=== PATIENT | female | born 1940 | race Two or more races ===

== ENCOUNTER 2018-08-31 16:18 | Emergency (ER) | payer MEDICARE, OTHER ==
[~2018-08-31] VITALS: Ht 167.6 cm; Wt 77.1 kg
[2018-08-31 16:20] VITALS: BP 123/57
--- NOTE | 2018-08-31 16:20 | NUR ---
ED Nurse Note: Patient cristofer from [facility] c/o shaking. at time of arrival patient is currently having shoulder tremors that she states have been going on for the past week or so. patient complains of no pain. at time of arrival patient did present with an elevated temperature of 99.7, patient is alert and oriented x4. ambulatory with a steady gait, VSS
[2018-08-31] MEDS ORDERED: LORAZEPAM2 MG/1 M4 ORAL (16:31)
[2018-08-31] MEDS ORDERED: ZOLPIDEM TARTRAT5 MG ORAL (16:32)
[2018-08-31] MEDS ORDERED: AMLODIPINE BESYL5 MG ORAL (16:32)
[2018-08-31] MEDS ORDERED: QUETIAPINE FUM300 MG ORAL (16:32)
[2018-08-31] MEDS ORDERED: REMERON30 M1 ORAL (16:34)
[2018-08-31] MEDS ORDERED: DONEPEZIL HCL5 M2 ORAL (16:34)
[2018-08-31 17:12] LABS: BASOPHILS % (AUTO) 1.3 % (0.0-2.0); EOSINOPHILS % (AUTO) 0.2 % (0.0-3.0); HEMATOCRIT 41.2 % (37.0-47.0); LYMPHOCYTES % (AUTO) 22.6 % (20.0-45.0); MEAN CORPUSCULAR VOLUME 93 FL (80-99); MONOCYTES % (AUTO) 5.5 % (1.0-10.0); NEUTROPHILS % (AUTO) 70.5 % (45.0-75.0); PLATELET COUNT 298 K/UL (150-450); RED BLOOD COUNT 4.45 M/UL (4.20-5.40); RED CELL DISTRIBUTION WIDTH 11.2 % (11.6-14.8); WHITE BLOOD COUNT 8.3 K/UL (4.8-10.8)
[2018-08-31] MEDS ORDERED: LORazepam Inj 2mg/ml 1ml IV ONE (17:15)
[2018-08-31 17:27] LABS: APPEARANCE,URINE CLEAR; BILIRUBIN, URINE NEGATIVE (NEGATIVE); COLOR,URINE PALE YELLOW; GLUCOSE, URINE (UA) NEGATIVE (NEGATIVE); KETONES,URINE NEGATIVE (NEGATIVE); LEUKOCYTE ESTERASE ,URINE 1+ (NEGATIVE); NITRITE,URINE NEGATIVE (NEGATIVE); PH,URINE 6 (4.5-8.0); PROTEIN,URINE NEGATIVE (NEGATIVE); UROBILINOGEN,URINE NORMAL MG/DL (0.0-1.0)
[2018-08-31 17:29] LABS: ANION GAP 10 mmol/L (5-15); BLOOD UREA NITROGEN 4 mg/dL (7-18); CALCIUM 9.1 MG/DL (8.5-10.1); CARBON DIOXIDE 26 MMOL/L (21-32); CHLORIDE 103 MMOL/L (98-107); CREATININE 0.6 MG/DL (0.55-1.30); POTASSIUM 3.5 MMOL/L (3.5-5.1); SODIUM 139 MMOL/L (136-145)
[2018-08-31 17:38] LABS: ALANINE AMINOTRANSFERASE 15 U/L (12-78); ALBUMIN 4.1 G/DL (3.4-5.0); ALBUMIN/GLOBULIN RATIO 1.2 (1.0-2.7); ALKALINE PHOSPHATASE 99 U/L (46-116); ASPARTATE AMINO TRANSFERASE 18 U/L (15-37); BILIRUBIN,TOTAL 0.4 MG/DL (0.2-1.0); CREATINE KINASE 54 U/L (26-308)
--- NOTE | 2018-08-31 18:32 | NUR ---
ED Nurse Note: Patient at no distress at this time
--- NOTE | 2018-08-31 19:12 | Emergency Room Report ---
History of Present Illness General Chief Complaint: General Complaint Source: Patient, Medical Record, EMS Present Illness HPI Patient is brought by EMS. Apparently she has had some shaking episodes today. She states that she feels anxious. She denies other somatic complaints. The patient is on medication for anxiety and schizoaffective disorder. She denies depression or suicidal ideation. She states she has been eating well. She has been sleeping well also. She denies pain. No fevers, chills, sore throat, chest pain, palpitations, nausea, vomiting, diarrhea, dysuria, abdominal pain, shortness of breath, joint pain, rashes, visual changes, headache. History of hypertension. Allergies: Coded Allergies: No Known Allergies (Unverified , 08/31/18) Patient History Past Medical History: see triage record Social History: Denies: smoking Social History Narrative Assisted living Now: No Reviewed Nursing Documentation: PMH: Agreed; PSxH: Agreed Nursing Documentation-PMH Past Medical History: No History, Except For Hx Hypertension: Yes History Of Psychiatric Problem: Yes - Depression, Schizo Review of Systems All Other Systems: negative except mentioned in HPI Physical Exam Vital Signs Date Time Temp Pulse Resp B/P (MAP) Pulse Ox O2 Delivery O2 Flow Rate FiO2 08/31/18 16:14 99.7 100 18 123/57 (79) 95 Room Air Sp02 EP Interpretation: reviewed, normal General Appearance: well appearing, no apparent distress, GCS 15, non-toxic Head: normocephalic, atraumatic Eyes: bilateral eye normal inspection, bilateral eye EOMI, bilateral eye other - Irregular pupils ENT: moist mucus membranes Neck: supple Respiratory: chest non-tender, lungs clear, normal breath sounds Cardiovascular #1: regular rate, rhythm Cardiovascular #2: 2+ radial (R) Gastrointestinal: normal inspection, normal bowel sounds, non tender, no mass, non-distended Musculoskeletal: back normal, gait/station normal, normal range of motion Neurologic: alert, oriented x3, motor strength/tone normal, DTRs symmetric, sensory intact, cerebellar normal, normal gait, speech normal - Halting Psychiatric: no suicidal/homicidal ideation, anxious - But flat affect Skin: no rash Medical Decision Making Diagnostic Impression: Primary Impression: Episode of shaking Additional Impression: Anxiety ER Course Patient presents with shaking episodes. Differential includes rigors, Parkinson 's, essential tremor, anxiety, occult infection amongst others. The patient will be evaluated with EKG, chest x-ray and labs. The patient states she feels anxious at this time. She will be treated with Ativan. EKG sinus rhythm with minimal voltage criteria for LVH. Chest x-ray unremarkable. Labs with normal white count and CMP normal. Urinalysis unremarkable. Patient improved with treatment. Page Dr. Vasquez. Discussed with Dr. Vasquez. Patient stable for outpatient observation and treatment. Laboratory Tests Test 08/31/18 16:45 White Blood Count 8.3 K/UL (4.8-10.8) Red Blood Count 4.45 M/UL (4.20-5.40) Hemoglobin 14.0 G/DL (12.0-16.0) Hematocrit 41.2 % (37.0-47.0) Mean Corpuscular Volume 93 FL (80-99) Mean Corpuscular Hemoglobin 31.5 PG (27.0-31.0) H Mean Corpuscular Hemoglobin Concent 34.1 G/DL (32.0-36.0) Red Cell Distribution Width 11.2 % (11.6-14.8) L Platelet Count 298 K/UL (150-450) Mean Platelet Volume 6.7 FL (6.5-10.1) Neutrophils (%) (Auto) 70.5 % (45.0-75.0) Lymphocytes (%) (Auto) 22.6 % (20.0-45.0) Monocytes (%) (Auto) 5.5 % (1.0-10.0) Eosinophils (%) (Auto) 0.2 % (0.0-3.0) Basophils (%) (Auto) 1.3 % (0.0-2.0) Prothrombin Time 10.4 SEC (9.30-11.50) Prothrombin Time INR 1.0 (0.9-1.1) PTT 29 SEC (23-33) Urine Color Pale yellow Urine Appearance Clear Urine pH 6 (4.5-8.0) Urine Specific [place] 1.005 (1.005-1.035) Urine Protein Negative (NEGATIVE) Urine Glucose (UA) Negative (NEGATIVE) Urine Ketones Negative (NEGATIVE) Urine Blood 1+ (NEGATIVE) H Urine Nitrite Negative (NEGATIVE) Urine Bilirubin Negative (NEGATIVE) Urine Urobilinogen Normal MG/DL (0.0-1.0) Urine Leukocyte Esterase 1+ (NEGATIVE) H Urine RBC 0-2 /HPF (0 - 2) Urine WBC 2-4 /HPF (0 - 2) Urine Squamous Epithelial Cells Moderate /LPF (NONE/OCC) H Urine Bacteria Occasional /HPF (NONE) Sodium Level 139 MMOL/L (136-145) Potassium Level 3.5 MMOL/L (3.5-5.1) Chloride Level 103 MMOL/L (98-107) Carbon Dioxide Level 26 MMOL/L (21-32) Anion Gap 10 mmol/L (5-15) Blood Urea Nitrogen 4 mg/dL (7-18) L Creatinine 0.6 MG/DL (0.55-1.30) Estimate Glomerular Filtration Rate mL/min (>60) Glucose Level 118 MG/DL (74-106) H Lactic Acid Level 1.70 mmol/L (0.4-2.0) Calcium Level 9.1 MG/DL (8.5-10.1) Magnesium Level 2.0 MG/DL (1.8-2.4) Total Bilirubin 0.4 MG/DL (0.2-1.0) Aspartate Amino Transferase (AST) 18 U/L (15-37) Alanine Aminotransferase (ALT) 15 U/L (12-78) Alkaline Phosphatase 99 U/L (46-116) Total Creatine Kinase 54 U/L (26-308) Troponin I 0.002 ng/mL (0.000-0.056) Pro-B-Type Natriuretic Peptide 187 pg/mL (0-125) H Total Protein 7.5 G/DL (6.4-8.2) Albumin 4.1 G/DL (3.4-5.0) Globulin 3.4 g/dL Albumin/Globulin Ratio 1.2 (1.0-2.7) Lipase 130 U/L (73-393) EKG Diagnostic Results Rate: normal Rhythm: NSR ST Segments: no acute changes - Minimal voltage criteria for LVH Rhythm Strip Diag. Results EP Interpretation: yes Rhythm: NSR, no PVC's, no ectopy Chest X-Ray Diagnostic Results Chest X-Ray Diagnostic Results : Chest X-Ray Ordered: Yes # of Views/Limited/Complete: 1 View Indication: Other EP Interpretation: Yes Interpretation: no consolidation, no effusion, no pneumothorax Impression: No acute disease Electronically Signed by: Electronically signed by Wilfrid Arora MD Last Vital Signs Date Time Temp Pulse Resp B/P (MAP) Pulse Ox O2 Delivery O2 Flow Rate FiO2 08/31/18 21:09 98.4 85 18 155/89 95 Room Air Status: improved Disposition: ASSISTED LIVING Condition: Improved Referrals: Shruthi Vasquez MD (PCP) Wilfrid Arora MD Aug 31, 2018 19:12
[2018-08-31 19:35] VITALS: BP 123/57
--- NOTE | 2018-08-31 19:35 | NUR ---
Spoke with Janell at [facility], aware of patients return back home.
[2018-08-31 21:09] VITALS: BP 155/89
--- NOTE | 2018-08-31 21:09 | NUR ---
ER DISCHARGE NOTE: Patient is cleared to be discharged per ERMD, pt is aox4, on room air, with stable vital signs. pt was given dc and prescription instructions, pt was able to verbalize understanding, pt id band and iv site removed without complications. pt is being transferred back to the facility. pt took all belongings and is accompanied by ambulance personnel
--- NOTE | 2018-09-01 11:53 | Diagnostic Imaging Report ---
Indication: Shortness of breath Technique: One view of the chest Comparison: none Findings: Lungs and pleural spaces are clear. The heart size is normal. There is a rim calcified left breast implant noted Impression: No acute process
--- NOTE | 2018-09-01 21:04 | Cardiology Report ---
APPROVED REPORT EKG Measurement Heart [id number] Normal sinus rhythm Minimal voltage criteria for LVH, may be normal variant Borderline ECG
== END 2018-08-31 21:10 | disposition home or self-care (01) ==
LOC: EDBD 16:18 → EMR 18:44
DX: F41.9 Anxiety disorder, unspecified (principal); I10 Essential (primary) hypertension; F32.9 Major depressive disorder, single episode, unspecified; F20.9 Schizophrenia, unspecified
CPT/HCPCS: 36415; 71045; 80053; 81003; 82550; 82962; 83605; 83690; 83735; 83880; 84484; 85025; 85610; 85730; 93005; 96361; 96374; 99284

== ENCOUNTER 2018-09-09 11:19 | Emergency (ER) | payer MEDICARE, OTHER ==
[~2018-09-09] VITALS: Ht 162.6 cm; Wt 63.5 kg
[~2018-09-09 11:19] MED LIST: AMLODIPINE BESYL5 MG ORAL; DONEPEZIL HCL5 M2 ORAL; LORAZEPAM2 MG/1 M4 ORAL; QUETIAPINE FUM300 MG ORAL; REMERON30 M1 ORAL; ZOLPIDEM TARTRAT5 MG ORAL
[2018-09-09 11:30] VITALS: BP 116/64
--- NOTE | 2018-09-09 11:39 | Emergency Room Report ---
History of Present Illness General Chief Complaint: Constipation Source: Patient, EMS Present Illness HPI Patient is a 77-year-old female who was [facility] after increased constipation for the past few days. Patient states that she had not had a bowel movement in the past 3 days. She denies any abdominal pain. She denies any abdominal discomfort or low back pain. Patient a prior history of schizoaffective disorder. She had previous visits for anxiety in the past. Allergies: Coded Allergies: No Known Allergies (Unverified , 08/31/18) Patient History Past Medical History: see triage record Reviewed Nursing Documentation: PMH: Agreed; PSxH: Agreed Nursing Documentation-PMH Hx Hypertension: Yes Review of Systems All Other Systems: negative except mentioned in HPI Physical Exam Vital Signs Date Time Temp Pulse Resp B/P (MAP) Pulse Ox O2 Delivery O2 Flow Rate FiO2 09/09/18 11:11 98.8 80 16 116/64 (81) 94 Room Air General Appearance: well appearing, no apparent distress, GCS 15, non-toxic Head: normocephalic, atraumatic ENT: hearing grossly normal, normal voice Neck: full range of motion, supple Respiratory: lungs clear, no respiratory distress, speaking full sentences Cardiovascular #1: normal inspection, no edema Gastrointestinal: normal inspection, normal bowel sounds, non tender, soft, no mass, no hernia Musculoskeletal: no calf tenderness Neurologic: normal inspection, alert, oriented x3, responsive, manager of selection and assessment III-XII nml as tested, normal gait Psychiatric: normal inspection, mood/affect normal Skin: no rash Medical Decision Making Diagnostic Impression: Primary Impression: Constipation ER Course Patient presented for constipation. Differential diagnosis include is not limited to medication reaction, bowel obstruction, functional bowel disorder among others. Patient has a benign exam and does not appear to require any laboratory testing at this time. patient was noted to have some bowel movement and was given fleets enema. Patient was noted to have improvement in her symptoms after medications. Patient appears to be stable for discharge. She was sent back to her long term after discussion with her physician Dr. Jurado. Last Vital Signs Date Time Temp Pulse Resp B/P (MAP) Pulse Ox O2 Delivery O2 Flow Rate FiO2 09/09/18 11:11 98.8 80 16 116/64 (81) 94 Room Air Status: improved Disposition: HOME, SELF-CARE Condition: Stable Scripts Docusate Sodium* (COLACE*) 100 Mg Capsule 100 MG ORAL TWICE A DAY, #30 CAP Prov: Prudencio Obando MD 09/09/18 Prudencio Obando MD Sep 09, 2018 11:39
[2018-09-09] MEDS ORDERED: Fleet's Enema 133ml RECTAL ONE (11:45)
--- NOTE | 2018-09-09 12:06 | NUR ---
ED Nurse Note: [facility] c/o constipation for 4-5 days, denies taking pain medication, pt able to walk. pt stated she feels weak for the past days, denies vomiting. will continue to monitor.
--- NOTE | 2018-09-09 12:24 | NUR ---
ED Nurse Note: pt had BM x 2, noted small brwn round stool. no blood
[2018-09-09] MEDS ORDERED: COLACE100 MG ORAL (12:51)
[2018-09-09 13:00] VITALS: BP 115/65
[2018-09-09 13:37] VITALS: BP 115/65
--- NOTE | 2018-09-09 13:37 | NUR ---
ED Nurse Note: PT IS GOING BCK TO [facility]IA [facility], REPORT GIVEN TO CHRISTINE RN. PT LEFT THE ED WITH STABLE VS AND WITH ALL BELONGINGS.
--- NOTE | 2018-09-09 14:00 | Diagnostic Imaging Report ---
Indication: Abdominal pain Comparison: None Single view of the abdomen obtained Findings: Bowel gas pattern is nonspecific. No mass, ectopic calcifications, or abnormal gas collections are identified. The bones are unremarkable. Clustered radiopaque structures are projected over the mid pelvis the right hip and below the left ischium. These are probably overlying the patient. Impression: No acute findings
== END 2018-09-09 13:37 | disposition home or self-care (01) ==
LOC: EDBD 11:19 → EMR 11:59
DX: K59.00 Constipation, unspecified (principal); I10 Essential (primary) hypertension
CPT/HCPCS: 74018; 99283

== ENCOUNTER 2018-09-28 09:51 | Emergency (ER) | payer MEDICARE, OTHER ==
[~2018-09-28] VITALS: Ht 162.6 cm; Wt 81.6 kg
[~2018-09-28 09:51] MED LIST changes: +COLACE100 MG ORAL
[2018-09-28] MEDS ORDERED: LORAZEPAM2 MG ORAL (09:58)
[2018-09-28 10:02] VITALS: BP 131/67
[2018-09-28] MEDS ORDERED: QUETIAPINE FUMA25 MG ORAL (10:02)
[2018-09-28] MEDS ORDERED: ZOLPIDEM TARTRAT5 MG ORAL (10:02)
[2018-09-28] MEDS ORDERED: QUETIAPINE FUMA50 MG ORAL (10:02)
[2018-09-28] MEDS ORDERED: AMLODIPINE BESYL5 MG ORAL (10:02)
--- NOTE | 2018-09-28 10:02 | NUR ---
ED Nurse Note: Pt brought in by EMS from [facility] due to anxiety. Per EMS, pt's room mate has turned on the lights while they were sleeping and was anxious. Hx of depression and schizoeffective disorder and was sinus tach en route 110-120. AAO x4, ambulatory with non labored breathing. NSR on diamond picker.
[2018-09-28] MEDS ORDERED: DONEPEZIL HCL5 M2 ORAL (10:04)
[2018-09-28] MEDS ORDERED: MIRTAZAPINE30 MG ORAL (10:04)
--- NOTE | 2018-09-28 10:25 | NUR ---
ED Nurse Note: Called [facility] and spoke to Lillian the area secretary that pt is coming back to their facility. She said there is no RN available at this time to receive report.
[2018-09-28 11:15] VITALS: BP 128/70
--- NOTE | 2018-09-28 11:15 | NUR ---
ER DISCHARGE NOTE: Patient is cleared to be discharged per ERMD, pt is aox4, on room air, with stable vital signs. pt was given instructions, pt was able to verbalize understanding, pt id band removed without complications. pt is able to ambulate with steady gait. pt took all belongings and left with [facility] staff and DC to [facility].
--- NOTE | 2018-09-28 13:20 | Emergency Room Report ---
History of Present Illness General Chief Complaint: Behavioral Complaint Source: Patient, EMS Present Illness HPI Patient was sent in by nursing facility for reports of anxiety Patient here reports that she feels significantly better being here denies any headache denies any chest pain patient reports that she has underlying anxiety And is supposed to be getting medicine however is not Denies any vomiting or diarrhea denies any palpitations at this time denies any focal weakness Review of medical records reveals history of schizophrenia with PRN Ativan orders patient also has had several recent visits to the hospital with Fairly extensive work-up Allergies: Coded Allergies: No Known Allergies (Unverified , 08/31/18) Patient History Past Medical History: see triage record Reviewed Nursing Documentation: PMH: Agreed; PSxH: Agreed Nursing Documentation-PMH Past Medical History: No History, Except For Hx Hypertension: Yes History Of Psychiatric Problem: Yes - depression, schizoaffective disorder, general weakness Review of Systems All Other Systems: negative except mentioned in HPI Physical Exam Vital Signs Date Time Temp Pulse Resp B/P (MAP) Pulse Ox O2 Delivery O2 Flow Rate FiO2 09/28/18 09:52 98.8 93 17 110/63 (79) 94 Room Air Sp02 EP Interpretation: reviewed, normal General Appearance: well appearing, no apparent distress Head: normocephalic, atraumatic Eyes: bilateral eye PERRL, bilateral eye EOMI ENT: hearing grossly normal, normal pharynx, TMs + canals normal, uvula midline Neck: full range of motion, supple, no meningismus, no bony tend Respiratory: lungs clear, normal breath sounds, no rhonchi, no respiratory distress, no retraction, no accessory muscle use Cardiovascular #1: normal peripheral pulses, regular rate, rhythm, no edema, no gallop, no JVD, no murmur Gastrointestinal: normal bowel sounds, non tender, soft, no mass, no organomegaly, non-distended, no guarding, no hernia, no pulsatile mass, no rebound Genitourinary: no CVA tenderness Musculoskeletal: normal inspection Neurologic: oriented x3, responsive, video specialist III-XII nml as tested, motor strength/ tone normal, sensory intact Psychiatric: mood/affect normal Skin: no rash Lymphatic: normal inspection, no adenopathy Medical Decision Making Diagnostic Impression: Primary Impression: palpitations ER Course Patient has benign medical evaluation given the complaint of presentation multiple differentials including but not limited to like slight abnormality, anemia, neurological, infectious pathology entertained Patient has had recent work-up which is benign Evaluation today reveals afebrile findings patient is neurologically intact I did contact the nursing facility and recommended contacting the patient's psychiatrist For possible more urgent consultation Rhythm Strip Diag. Results EP Interpretation: yes Rate: 88 Rhythm: NSR, no PVC's, no ectopy Last Vital Signs Date Time Temp Pulse Resp B/P (MAP) Pulse Ox O2 Delivery O2 Flow Rate FiO2 09/28/18 11:15 98.3 86 18 128/70 98 Room Air Status: improved Disposition: XFER SNF Condition: Improved Referrals: Shruthi Vasquez MD (PCP) Patient Instructions: Palpitations, [id number] Additional Instructions: Patient is provided with the discharge instructions notified to follow up with primary doctor in the next 2-3 days otherwise return to the er with any worsening symptoms. Please also notify the patient's psychiatrist with the requirements to be transported to the hospital on several occasions recently for possible further outpatient consultation Please note that this report is being documented using Garmentory technology. This can lead to erroneous entry secondary to incorrect interpretation by the dictating instrument. Karla Burton DO Sep 28, 2018 13:20
== END 2018-09-28 11:15 ==
LOC: EDUNIT# 09:51 → EDBD 09:51 → EMR 11:07
DX: R00.2 Palpitations (principal); F41.9 Anxiety disorder, unspecified; F32.9 Major depressive disorder, single episode, unspecified; F25.9 Schizoaffective disorder, unspecified; I10 Essential (primary) hypertension
CPT/HCPCS: 99282

== ENCOUNTER 2019-01-01 10:09 | Emergency (ER) | payer MEDICARE, OTHER ==
[~2019-01-01] VITALS: Ht 162.6 cm; Wt 77.1 kg
[~2019-01-01 10:09] MED LIST changes: +LORAZEPAM2 MG ORAL; +MIRTAZAPINE30 MG ORAL; +QUETIAPINE FUMA25 MG ORAL; +QUETIAPINE FUMA50 MG ORAL
[2019-01-01 10:12] VITALS: BP 116/68
--- NOTE | 2019-01-01 10:22 | NUR ---
ED Nurse Note: Patient arrived from [facility] by ambulance. Per EMS, the staff called them because the patient has had burning on urination for 1 week. Patient is AxO x 4, temp 98.4, VSS. Patient states she also has had breast soreness x 1 week.
--- NOTE | 2019-01-01 11:00 | NUR ---
ED Nurse Note: Urine sent to lab.
[2019-01-01 11:13] LABS: APPEARANCE,URINE CLEAR; BILIRUBIN, URINE NEGATIVE (NEGATIVE); COLOR,URINE PALE YELLOW; GLUCOSE, URINE (UA) NEGATIVE (NEGATIVE); KETONES,URINE NEGATIVE (NEGATIVE); LEUKOCYTE ESTERASE ,URINE 2+ (NEGATIVE); NITRITE,URINE NEGATIVE (NEGATIVE); PH,URINE 7 (4.5-8.0); PROTEIN,URINE NEGATIVE (NEGATIVE); UROBILINOGEN,URINE NORMAL MG/DL (0.0-1.0)
[2019-01-01 11:45] VITALS: BP 118/74
--- NOTE | 2019-01-01 12:20 | NUR ---
ED Nurse Note: pt c/o pain on left breast. Dr. Obando notified. exam at the bed side. per dr. Obando, follow with PCP. no redness or swelling noted.
--- NOTE | 2019-01-01 13:05 | NUR ---
ED Nurse Note: Reports given to Kt Garcia at the [facility]
--- NOTE | 2019-01-01 13:10 | NUR ---
ED Nurse Note: Patient getting upset, refusing to leave. Patient is being verbally abusive, trying to hit staff if getting close to her.
[2019-01-01 13:40] VITALS: BP 114/80
[2019-01-01 14:15] VITALS: BP 112/79
--- NOTE | 2019-01-01 14:21 | NUR ---
ED Nurse Note: Patient now cooperating, states she is ready to leave. Ambulance called to come pickup the patient.
[2019-01-01 14:49] VITALS: BP 113/75
--- NOTE | 2019-01-01 19:55 | Emergency Room Report ---
History of Present Illness General Chief Complaint: Female Urogenital Problems Source: Medical Record Present Illness HPI Patient is a 78 year old female sent in for possible urinary tract infection. Patient denies fever. Reports having some pain to left breast. Denies any other current complaints. Patient has history of dementia. Allergies: Coded Allergies: No Known Allergies (Unverified , 08/31/18) Patient History Past Medical History: see triage record Last Menstrual Period: na Reviewed Nursing Documentation: PMH: Agreed; PSxH: Agreed Nursing Documentation-PMH Past Medical History: No History, Except For Hx Hypertension: Yes History Of Psychiatric Problem: Yes - schizo-affective d/o, depression Review of Systems All Other Systems: negative except mentioned in HPI Physical Exam Vital Signs Date Time Temp Pulse Resp B/P (MAP) Pulse Ox O2 Delivery O2 Flow Rate FiO2 01/01/19 10:09 98.2 92 20 112/62 (79) 98 Nasal Cannula General Appearance: well appearing, no apparent distress, alert, Chronically Ill Head: normocephalic, atraumatic ENT: hearing grossly normal, normal voice Neck: full range of motion, supple Respiratory: no respiratory distress, speaking full sentences Gastrointestinal: normal inspection, non tender, soft Genitourinary: no CVA tenderness Musculoskeletal: normal inspection, gait/station normal, no calf tenderness Neurologic: alert, motor strength/tone normal, motorcycle racer III-XII nml as tested, normal gait Psychiatric: mood/affect normal Skin: no rash Medical Decision Making Diagnostic Impression: Primary Impression: Pain, abdominal, nonspecific Additional Impression: Breast pain, left Laboratory Tests Test 01/01/19 11:00 Urine Color Pale yellow Urine Appearance Clear Urine pH 7 (4.5-8.0) Urine Specific [place] 1.010 (1.005-1.035) Urine Protein Negative (NEGATIVE) Urine Glucose (UA) Negative (NEGATIVE) Urine Ketones Negative (NEGATIVE) Urine Blood Negative (NEGATIVE) Urine Nitrite Negative (NEGATIVE) Urine Bilirubin Negative (NEGATIVE) Urine Urobilinogen Normal MG/DL (0.0-1.0) Urine Leukocyte Esterase 2+ (NEGATIVE) H Urine RBC 0 /HPF (0 - 2) Urine WBC 2-4 /HPF (0 - 2) Urine Squamous Epithelial Cells Occasional /LPF Urine Bacteria Few /HPF (NONE) Last Vital Signs Date Time Temp Pulse Resp B/P (MAP) Pulse Ox O2 Delivery O2 Flow Rate FiO2 01/01/19 14:49 98.3 82 17 113/75 100 Nasal Cannula Status: improved Disposition: XFER SNF Condition: Stable Patient Instructions: Medical Screening Exam Additional Instructions: Follow up with Dr. Vasquez for further workup of breast pain. Return if worse. Prudencio Obando MD Jan 01, 2019 19:55
== END 2019-01-01 14:49 | disposition home or self-care (01) ==
LOC: EDBD 10:09 → EMR 10:35
DX: R10.9 Unspecified abdominal pain (principal); N64.4 Mastodynia; I10 Essential (primary) hypertension; F25.9 Schizoaffective disorder, unspecified; F32.9 Major depressive disorder, single episode, unspecified
CPT/HCPCS: 81003; 99282

== ENCOUNTER 2019-06-13 11:09 | Inpatient (IN) | payer MEDICARE, OTHER ==
[2019-06-13] VITALS (7 sets, daily range): BP systolic 90–139; BP diastolic 55–85
[~2019-06-13] VITALS: Ht 167.6 cm; Wt 87.8 kg
[2019-06-13 12:14] LABS: ANION GAP 8 mmol/L (5-15); BLOOD UREA NITROGEN 33 mg/dL (7-18); CALCIUM 8.2 MG/DL (8.5-10.1); CARBON DIOXIDE 29 MMOL/L (21-32); CHLORIDE 100 MMOL/L (98-107); CREATININE 1.1 MG/DL (0.55-1.30); POTASSIUM 3.2 MMOL/L (3.5-5.1); SODIUM 137 MMOL/L (136-145)
[2019-06-13 12:17] LABS: BASOPHILS % (AUTO) 0.6 % (0.0-2.0); HEMOGLOBIN 13.4 G/DL (12.0-16.0); LYMPHOCYTES % (AUTO) 17.4 % (20.0-45.0); MEAN CORPUSCULAR VOLUME 90 FL (80-99); MONOCYTES % (AUTO) 8.5 % (1.0-10.0); NEUTROPHILS % (AUTO) 73.5 % (45.0-75.0); PLATELET COUNT 255 K/UL (150-450); RED BLOOD COUNT 4.23 M/UL (4.20-5.40); RED CELL DISTRIBUTION WIDTH 11.4 % (11.6-14.8)
--- NOTE | 2019-06-13 12:17 | NUR ---
ED Nurse Note: Patient was BIB [id number] from [facility] due to gen weakness and dizziness, also patient c/o bilateral rash on upper and lower extremities. Patient presented calm, and cooperative, AAO x4, VSS at this time, skin is warm to touch, pt was placed in a gown, connected to the monitor.
--- NOTE | 2019-06-13 12:23 | Diagnostic Imaging Report ---
EXAM: XR Chest, 1 View CLINICAL HISTORY: WEAK TECHNIQUE: Frontal view of the chest. COMPARISON: Chest x-ray 08/31/18 FINDINGS: Lungs: Tracheobronchial calcinosis. Lungs clear. Vascularity within normal limits. Pleural space: Unremarkable. No pneumothorax. Heart: Unremarkable. No cardiomegaly. Mediastinum: Unremarkable. Bones/joints: Unremarkable. Soft tissues: Rim calcified left breast implant. IMPRESSION: No acute findings in the chest.
[2019-06-13 12:25] LABS: ALANINE AMINOTRANSFERASE 95 U/L (12-78); ALBUMIN 3.2 G/DL (3.4-5.0); ALBUMIN/GLOBULIN RATIO 0.8 (1.0-2.7); ALKALINE PHOSPHATASE 80 U/L (46-116); ASPARTATE AMINO TRANSFERASE 191 U/L (15-37); BILIRUBIN,TOTAL 0.4 MG/DL (0.2-1.0)
[2019-06-13] MEDS ORDERED: Piperacillin/Tazobactam 3.375 GM in NS 110 ML IVPB ONE (12:45)
--- NOTE | 2019-06-13 13:10 | NUR ---
ED Nurse Note: Covid, lactic reflux, and urine sent to lab.
[2019-06-13 13:50] LABS: APPEARANCE,URINE SLIGHTLY CLOUDY; BILIRUBIN, URINE NEGATIVE (NEGATIVE); GLUCOSE, URINE (UA) NEGATIVE (NEGATIVE); KETONES,URINE NEGATIVE (NEGATIVE); LEUKOCYTE ESTERASE ,URINE 3+ (NEGATIVE); NITRITE,URINE NEGATIVE (NEGATIVE); PH,URINE 6 (4.5-8.0); PROTEIN,URINE 2+ (NEGATIVE); UROBILINOGEN,URINE NORMAL MG/DL (0.0-1.0)
--- NOTE | 2019-06-13 13:56 | Emergency Room Report ---
History of Present Illness General Chief Complaint: Generalized Weakness Source: Patient Present Illness HPI 78-year-old female presents for evaluation. Brought in by EMS from assisted living. Complaining of bowel weakness for the last day. Also states there is a "rash" to her legs. Patient denies pain. Denies fevers or chills. Denies cough. No other aggravating relieving factors. Denies any other associated symptoms Allergies: Coded Allergies: No Known Allergies (Unverified , 08/31/18) COVID-19 Screening Contact w/high risk pt: Yes Recent Travel to affected area: No Experienced COVID-19 symptoms?: No Patient History Past Medical History: HTN Past Surgical History: none Pertinent Family History: none Social History: Denies: smoking, alcohol use, drug use Now: No Immunizations: UTD Reviewed Nursing Documentation: PMH: Agreed; PSxH: Agreed Nursing Documentation-PMH Hx Hypertension: Yes Review of Systems All Other Systems: negative except mentioned in HPI Physical Exam Vital Signs Date Time Temp Pulse Resp B/P (MAP) Pulse Ox O2 Delivery O2 Flow Rate FiO2 06/13/19 11:10 98.2 99 18 123/61 (81) 96 Room Air Sp02 EP Interpretation: reviewed, normal General Appearance: no apparent distress, alert, GCS 15, non-toxic Head: normocephalic, atraumatic Eyes: bilateral eye normal inspection, bilateral eye PERRL ENT: hearing grossly normal, normal pharynx, no angioedema, normal voice Neck: full range of motion, supple/symm/no masses Respiratory: chest non-tender, lungs clear, normal breath sounds, speaking full sentences Cardiovascular #1: regular rate, rhythm, no edema Cardiovascular #2: 2+ carotid (R), 2+ carotid (L), 2+ radial (R), 2+ radial (L) , 2+ dorsalis pedis (R), 2+ dorsalis pedis (L) Gastrointestinal: normal bowel sounds, non tender, soft, non-distended, no guarding, no rebound Rectal: deferred Genitourinary: normal inspection, no CVA tenderness Musculoskeletal: back normal, normal range of motion, gait/station normal, non- tender Neurologic: alert, motor strength/tone normal, oriented x3, sensory intact, responsive, speech normal Psychiatric: judgement/insight normal, memory normal, mood/affect normal, no suicidal/homicidal ideation Reflexes: 3+ bicep (R), 3+ bicep (L), 3+ tricep (R), 3+ tricep (L), 3+ knee (R) , 3+ knee (L) Skin: other - erythema/induration to bilateral thighs Lymphatic: no adenopathy Medical Decision Making Diagnostic Impression: Primary Impression: Episode of generalized weakness Additional Impression: Cellulitis of both lower extremities ER Course Hospital Course 78-year-old female presents to ED with rash to lower legs, weakness Differential diagnoses include: Cellulitis, sepsis, abscess, dehydration Clinical course Patient placed on stretcher. After initial history and physical I ordered labs , blood Cx, UA, IVFs, CXR labs reviewed -no leukocytosis, Hb/Hct stable, no electrolyte abnormalities. lactic > 2 CXR - no focal consolidation antibiotics given. given IVFs. given concern for COVID - swab sent Case discussed with Dr Jurado and he agreed to accept the patient to his service for further care and support Diagnosis - episode of generalized weakness, cellulitis of both lower extremities Patient admitted to floor in serious condition Labs Test 06/13/19 11:45 06/13/19 13:10 06/13/19 13:25 White Blood Count 7.0 K/UL (4.8-10.8) Red Blood Count 4.23 M/UL (4.20-5.40) Hemoglobin 13.4 G/DL (12.0-16.0) Hematocrit 38.0 % (37.0-47.0) Mean Corpuscular Volume 90 FL (80-99) Mean Corpuscular Hemoglobin 31.6 PG (27.0-31.0) Mean Corpuscular Hemoglobin Concent 35.2 G/DL (32.0-36.0) Red Cell Distribution Width 11.4 % (11.6-14.8) Platelet Count 255 K/UL (150-450) Mean Platelet Volume 6.5 FL (6.5-10.1) Neutrophils (%) (Auto) 73.5 % (45.0-75.0) Lymphocytes (%) (Auto) 17.4 % (20.0-45.0) Monocytes (%) (Auto) 8.5 % (1.0-10.0) Eosinophils (%) (Auto) 0.0 % (0.0-3.0) Basophils (%) (Auto) 0.6 % (0.0-2.0) Sodium Level 137 MMOL/L (136-145) Potassium Level 3.2 MMOL/L (3.5-5.1) Chloride Level 100 MMOL/L (98-107) Carbon Dioxide Level 29 MMOL/L (21-32) Anion Gap 8 mmol/L (5-15) Blood Urea Nitrogen 33 mg/dL (7-18) Creatinine 1.1 MG/DL (0.55-1.30) Estimat Glomerular Filtration Rate 48.0 mL/min (>60) Glucose Level 88 MG/DL (74-106) Lactic Acid Level 2.70 mmol/L (0.4-2.0) Calcium Level 8.2 MG/DL (8.5-10.1) Total Bilirubin 0.4 MG/DL (0.2-1.0) Aspartate Amino Transf (AST/SGOT) 191 U/L (15-37) Alanine Aminotransferase (ALT/SGPT) 95 U/L (12-78) Alkaline Phosphatase 80 U/L (46-116) Pro-B-Type Natriuretic Peptide 278 pg/mL (0-125) Total Protein 7.4 G/DL (6.4-8.2) Albumin 3.2 G/DL (3.4-5.0) Globulin 4.2 g/dL Albumin/Globulin Ratio 0.8 (1.0-2.7) Chest X-Ray Diagnostic Results Chest X-Ray Diagnostic Results : Chest X-Ray Ordered: Yes # of Views/Limited/Complete: 1 View Indication: Other - cough EP Interpretation: Yes Interpretation: no consolidation, no effusion, no pneumothorax, no acute cardiopulmonary disease Impression: No acute disease Electronically Signed by: Electronically signed by Rogers Moralez MD Last Vital Signs Date Time Temp Pulse Resp B/P (MAP) Pulse Ox O2 Delivery O2 Flow Rate FiO2 06/13/19 12:15 99 18 Room Air 06/13/19 12:15 98.2 123/61 96 Status: improved Disposition: ADMITTED INPATIENT Condition: Serious Referrals: NON PHYSICIAN (PCP) Rogers Moralez MD June 13, 2019 13:56
[2019-06-13 14:15] LABS: COLOR,URINE YELLOW
--- NOTE | 2019-06-13 15:30 | NUR ---
HAND-OFF: Report given to Jocelin GREGORIO.
--- NOTE | 2019-06-13 15:35 | NUR ---
ED Nurse Note: Report received from DARLINE Turner. Pt is awake and alert, oriented x1. Pt is resting in bed. NAD. Safety measures in place. Will cont. to monitor. VSS.
--- NOTE | 2019-06-13 17:00 | NUR ---
ED Nurse Note: Pt laying in bed with eyes open, no acute distress. VSS.
--- NOTE | 2019-06-13 19:15 | NUR ---
ED Nurse Note: Pt repositioned in bed. Pt appears to be mildly anxious, ERMD aware. See vitals flow sheet. Will cont. to monitor., Safety measures in place.
--- NOTE | 2019-06-13 20:00 | NUR ---
ED Nurse Note: Spoke with admitting doctor, Dr. Jurado who stated that Dr. Jj was covering. Dr. Jj contacted as requested by Dr. Jurado and spoke with Dr. Jj who states that he will input admitting orders.
[2019-06-13] MEDS ORDERED: Miralax 17gm pkt ORAL PRN (20:15)
--- NOTE | 2019-06-13 21:00 | NUR ---
ED Nurse Note: Pt linen changed and pt respositioned. Pt is awake and alert, no acute distresss. Pt VSS. IV is patent and intact. Will continue to monitor and carry out orders. Safety measures in place.
[2019-06-13] MEDS: Heparin 5000 units/ml inj SUBQ SCH (21:22)
--- NOTE | 2019-06-13 23:00 | NUR ---
ED Nurse Note: Pt appears to be sleeping at this time, in bed with eyes closed. NAD. Will cont. to monitor.
[2019-06-14] VITALS (8 sets, daily range): BP systolic 96–158; BP diastolic 36–91
--- NOTE | 2019-06-14 02:00 | NUR ---
ED Nurse Note: Pt moved to [place] bed at this time and turned/repositioned. Pt is in no acute distress. Vital signs are stable. IV is patent and intact. IV antibx infusing as ordered. Safety measures in place. Will continue to monitor.
--- NOTE | 2019-06-14 02:05 | NUR ---
ED Nurse Note: Pt linens are dry and clean. Skin is dry/clean/intact.
[2019-06-14] MEDS ORDERED: Vancomycin 1.25gm/NS Premix IVPB ONE (03:00)
[2019-06-14] MEDS ORDERED: Vancomycin 1.25gm vial IVPB ONE (03:13)
--- NOTE | 2019-06-14 03:20 | NUR ---
HAND-OFF: Report given to DARLINE Sanchez.
--- NOTE | 2019-06-14 03:31 | NUR ---
ED Nurse Note: pt received from DARLINE Patrick. pt appears to be resting in bed with eyes closed. she has vancomycin infusing per MD orders. pt has been changed, cleaned and dried, provided with blankets for comfort. pt has stable vital signs. pt has cellulitis on lower extremities. will continue to monitor pt and prepare for admissiont
[2019-06-14] MEDS ORDERED: Vancomycin 1.25 GM in D5W 275 ML IVPB ONE (04:00)
--- NOTE | 2019-06-14 06:09 | NUR ---
ED Nurse Note: pt appears to be resting in bed with eyes closed. she does not appear to be in any distress at this time. breathing is even and non-labored on room air. will continue to monitor pt and prepare for admission
--- NOTE | 2019-06-14 07:05 | NUR ---
ED Nurse Note: Received report from Laura GREGORIO, patient resting in bed, breathing even and unlabored, on the air sampling and monitoring. No s/s of acute distress.
[2019-06-14] MEDS: Heparin 5000 units/ml inj SUBQ SCH ×2 (10:24→21:31)
--- NOTE | 2019-06-14 11:00 | NUR ---
NURSE NOTES: received report from DARLINE dowd,ER. patient will be admitted [address]Shecter vega.
--- NOTE | 2019-06-14 11:05 | NUR ---
ED Nurse Note: REPORT GIVEN TO DARLINE ORTIZ
--- NOTE | 2019-06-14 11:07 | NUR ---
ED Nurse Note: SPOKE WITH PRECY FROM THE LAB AND INFORMED THE NEED OF ASSISTANCE IN DRAWING THE LABS
--- NOTE | 2019-06-14 12:19 | NUR ---
NURSE NOTES: Received patient from ER transferred by hospital bed under the care of Dr. Yo with diagnosis of Weakness and Cellulitis on BLE. Patient is alert and oriented x 3-4, not in any form of cardiac or respiratory distress, skin warm and dry to touch, denies any pain or discomfort upon assessment, IV line gauge 20 on RAC patent and intact. Skin assessment done, ecchymosis noted on bilateral buttock and small excoriation on right buttock. Pt on droplet and contact isolation for PUI COVID, pt was oriented to room and use of call light, bed in low position with breaks engaged. Will continue to monitor. Call light within reach.
[2019-06-14] MEDS: Piperacillin/Tazobactam 3.375 GM in NS 110 ML IVPB SCH (14:00)
[2019-06-14] MEDS: Potassium Chloride 40 MEQ in 1/2 NS 1000ml 1,000 ML IV SCH ×2 (14:58→21:33)
[2019-06-14 15:28] LABS: BASOPHILS % (AUTO) 0.5 % (0.0-2.0); HEMATOCRIT 35.9 % (37.0-47.0); MEAN CORPUSCULAR VOLUME 94 FL (80-99); MONOCYTES % (AUTO) 5.5 % (1.0-10.0); PLATELET COUNT 207 K/UL (150-450); RED BLOOD COUNT 3.81 M/UL (4.20-5.40); RED CELL DISTRIBUTION WIDTH 12.5 % (11.6-14.8); WHITE BLOOD COUNT 5.8 K/UL (4.8-10.8)
[2019-06-14 15:55] LABS: ALANINE AMINOTRANSFERASE 82 U/L (12-78); ALBUMIN 2.5 G/DL (3.4-5.0); ALBUMIN/GLOBULIN RATIO 0.7 (1.0-2.7); ALKALINE PHOSPHATASE 67 U/L (46-116); ANION GAP 8 mmol/L (5-15); ASPARTATE AMINO TRANSFERASE 158 U/L (15-37); BILIRUBIN,TOTAL 0.3 MG/DL (0.2-1.0); BLOOD UREA NITROGEN 10 mg/dL (7-18); CALCIUM 7.6 MG/DL (8.5-10.1); CARBON DIOXIDE 28 MMOL/L (21-32); CHLORIDE 101 MMOL/L (98-107); CREATINE KINASE 3110 U/L (26-308); CREATININE 0.5 MG/DL (0.55-1.30); SODIUM 136 MMOL/L (136-145)
--- NOTE | 2019-06-14 16:01 | NUR ---
NURSE NOTES: Dr. Jj requested patient medication list at assisted living. RN called [facility]. spoke to Merlene. she is going to send a fax of medication list tomorrow morning after 7am.
--- NOTE | 2019-06-14 19:53 | NUR ---
HAND-OFF: Report given to DARLINE Jung.
--- NOTE | 2019-06-14 19:55 | NUR ---
NURSE NOTES: Pt. received from DARLINE Turner. Pt. AAOx3, on room air, breathing even and unlabored, no complaints of pain at this time. IV access right AC 20g, intact and patent; running 1/2NS KCl 40mEq at 100cc/hr. Bed is low and locked, side rails x2 up, bed alarm active, and call light in reach. Will continue to monitor.
[2019-06-15] VITALS: BP 114/80
--- NOTE | 2019-06-15 00:14 | History and Physical Report ---
DATE OF ADMISSION: 06/14/2019 CHIEF COMPLAINT AND REASON FOR HOSPITALIZATION: The patient was admitted with generalized weakness, cellulitis of the legs. HISTORY OF PRESENT ILLNESS: The patient lives in assisted living facility. She is a poor historian. Sent in for generalized weakness, found to have some cellulitis of the legs. There is a history of hypertension, psychiatric problems. ALLERGIES: None known. MEDICATIONS: Include amlodipine 5 mg daily, lorazepam 2 mg p.r.n., Seroquel 100 mg daily and Seroquel 250 at bedtime, zolpidem 5 as needed. HABITS: She is a nondrinker and nonsmoker. PAST SURGICAL HISTORY: Denies. SYSTEM REVIEW: HEAD, EYES, EARS, NOSE, AND THROAT: Vision and hearing is good. ENDOCRINE: No known diabetes or thyroid disease. PULMONARY: No asthma, TB, chronic cough. CARDIAC: No angina or [place]. GASTROINTESTINAL: She had some mild nausea and vomiting, not recurring. GENITOURINARY: No dysuria or hematuria. NEUROLOGIC: No CVA. She complains of generalized weakness. PHYSICAL EXAMINATION: VITAL SIGNS: BMI 27.4. Temperature 99.1, pulse 67, respiratory rate 18, blood pressure 138/67. HEAD, EYES, EARS, NOSE, AND THROAT: Sclerae are nonicteric. Ocular motions intact in all directions. Oral mucosa is moist. NECK: No adenopathy. LUNGS: Clear. HEART: Regular rhythm. No murmur heard. ABDOMEN: Soft. No organomegaly. EXTREMITIES: There is trace to 1+ edema. Erythema and cellulitis of both legs to the . IMPRESSION: 1. Cellulitis of the legs. 2. History of psychiatric disorder. 3. History of hypertension. 4. Generalized weakness. 5. Obesity. PLAN: The patient was placed on empiric antibiotics. We will watch her closely in view of her generalized weakness, look for any other contributing causes. Details orders have been given. Dmitri Jj M.D. DR: Manuel JOB#: [id number] CC:
[2019-06-15 04:00] VITALS: BP 142/52
[2019-06-15] MEDS: Vancomycin 1.25gm/NS Premix IVPB SCH (04:25)
[2019-06-15 06:40] LABS: BASOPHILS % (AUTO) 0.3 % (0.0-2.0); HEMATOCRIT 32.4 % (37.0-47.0); HEMOGLOBIN 11.6 G/DL (12.0-16.0); LYMPHOCYTES % (AUTO) 25.3 % (20.0-45.0); MEAN CORPUSCULAR VOLUME 89 FL (80-99); MONOCYTES % (AUTO) 7.9 % (1.0-10.0); NEUTROPHILS % (AUTO) 66.4 % (45.0-75.0); PLATELET COUNT 188 K/UL (150-450); RED BLOOD COUNT 3.63 M/UL (4.20-5.40); RED CELL DISTRIBUTION WIDTH 11.5 % (11.6-14.8); WHITE BLOOD COUNT 5.5 K/UL (4.8-10.8)
--- NOTE | 2019-06-15 06:53 | NUR ---
NURSE NOTES: Sandra from [facility] called to notify pt.'s blood culture presents with gram variable bacteria. Sandra will notify Dr. Jj regarding results.
[2019-06-15 07:11] LABS: ALANINE AMINOTRANSFERASE 77 U/L (12-78); ALBUMIN 2.2 G/DL (3.4-5.0); ALBUMIN/GLOBULIN RATIO 0.6 (1.0-2.7); ALKALINE PHOSPHATASE 63 U/L (46-116); ANION GAP 8 mmol/L (5-15); ASPARTATE AMINO TRANSFERASE 120 U/L (15-37); BILIRUBIN,TOTAL 0.3 MG/DL (0.2-1.0); BLOOD UREA NITROGEN 8 mg/dL (7-18); CALCIUM 7.1 MG/DL (8.5-10.1); CARBON DIOXIDE 26 MMOL/L (21-32); CHLORIDE 101 MMOL/L (98-107); CREATINE KINASE 1774 U/L (26-308); CREATININE 0.6 MG/DL (0.55-1.30); POTASSIUM 3.3 MMOL/L (3.5-5.1); SODIUM 134 MMOL/L (136-145)
[2019-06-15 08:00] VITALS: BP 122/68
--- NOTE | 2019-06-15 08:00 | NUR ---
NURSE NOTES: Patient awake and alert but confused,reorient patient ,respirations unlabored.IV fluids infusing as ordered.Breakfast at bedside will assist patient.Bed alarm on,call light within reach.
--- NOTE | 2019-06-15 08:03 | NUR ---
HAND-OFF: Report given to DARLINE Javier.
[2019-06-15] MEDS: Heparin 5000 units/ml inj SUBQ SCH ×2 (09:35→20:17)
[2019-06-15] MEDS: Potassium Chloride 40 MEQ in 1/2 NS 1000ml 1,000 ML IV SCH ×2 (09:45→18:29)
[2019-06-15 12:00] VITALS: BP 132/80
--- NOTE | 2019-06-15 12:40 | NUR ---
CASE MANAGEMENT:INITIAL REVIEW 78 YR OLD FEMALE BIBA FROM [facility] CC;GENERALIZED WEAKNESS SI;WEAKNESS. BLE CELLULITIS. 98.2 99 22 135/85 96% ON RA K+ 3.2 BUN 33 CA 8.2 AST 191 ALT 95 BNP 278 ALB 3.2 UA+ PROTEIN, BLOOD, LEUKOCYTE, RBC, WBC. SQUAMOUS, BACTERIA UA CX ~ + PROTEUS MIRABILIS NARES - NO MRSA BLOOD CX - NO GROWTH COVID -19 SWAB ~ RESULT PENDING IS;IVF NS BOLUS ZOSYN IV ONCE KCL IV ONE ADMITTED TO MED SURG @ 2013 ON 05/14/19 MED SURG STATUS DCP;FROM [facility]
[2019-06-15 16:00] VITALS: BP 136/76
--- NOTE | 2019-06-15 16:16 | Diagnostic Imaging Report ---
Indication: Abnormal liver function tests Technique: Granado-scale and duplex images of the upper abdomen were obtained Comparison: none Findings: Gallbladder is unremarkable, without stones, wall thickening, nor pericholecystic fluid. Sonographic Potts's sign is negative. Common bile duct measures 2 mm in diameter. No intrahepatic biliary ductal dilatation. Liver demonstrates increased and coarsened echogenicity, no focal abnormality. Portal vein and hepatic veins are patent. Pancreas is unremarkable. Spleen is unremarkable. Left kidney measures 12.6 cm in length. Right kidney measures 12.7 cm length. Both kidneys demonstrate normal echogenicity. There is no hydronephrosis. No focal abnormality . Non-aneurysmal abdominal aorta . Trace free fluid is seen adjacent to the right hepatic lobe Impression: Liver demonstrates increased echogenicity, compatible with hepatocellular disease, most likely fatty change but other etiologies possible. Negative for gallstones or dilated bile ducts Trace free intraperitoneal fluid
--- NOTE | 2019-06-15 16:22 | General Progress Note ---
Assessment/Plan Problem List: (1) Hypokalemia ICD Codes: E87.6 - Hypokalemia SNOMED: 19931015 (2) Hypertension, benign ICD Codes: I10 - Essential (primary) hypertension SNOMED: 80780069 (3) Urinary tract infection due to Proteus ICD Codes: N39.0 - Urinary tract infection, site not specified; B96.4 - Proteus (mirabilis) (morganii) as the cause of diseases classified elsewhere SNOMED: 612037137 (4) Episode of generalized weakness ICD Codes: R53.1 - Weakness SNOMED: 42768188 (5) Cellulitis of both lower extremities ICD Codes: L03.115 - Cellulitis of right lower limb; L03.116 - Cellulitis of left lower limb SNOMED: 264678033 (6) Bacteremia ICD Codes: R78.81 - Bacteremia SNOMED: 5858275 Assessment/Plan: continue empiric atb culture pending Subjective Constitutional: Reports: weakness HEENT: Reports: no symptoms Cardiovascular: Reports: no symptoms Respiratory: Reports: no symptoms Gastrointestinal/Abdominal: Reports: no symptoms Genitourinary: Reports: no symptoms Endocrine: Reports: no symptoms Allergies: Coded Allergies: No Known Allergies (Unverified , 08/31/18) Objective Last 24 Hour Vital Signs Date Time Temp Pulse Resp B/P (MAP) Pulse Ox O2 Delivery O2 Flow Rate FiO2 06/15/19 12:00 97.8 83 18 132/80 (97) 97 06/15/19 09:00 Room Air 06/15/19 08:00 97.9 77 18 122/68 (86) 97 06/15/19 04:00 98.2 89 20 142/52 (82) 92 06/15/19 00:00 97.3 87 18 114/80 (91) 92 06/14/19 21:00 Room Air 06/14/19 20:00 97.7 91 18 130/73 (92) 94 Intake and Output 06/14/19 06/15/19 19:00 07:00 Intake Total 740 ml 1000 ml Balance 740 ml 1000 ml Intake Oral 240 ml 300 ml IV Total 500 ml 700 ml # Voids 1 1 Laboratory Tests 06/15/19 05:35: White Blood Count 5.5, Red Blood Count 3.63L, Hemoglobin 11.6L, Hematocrit 32.4L , Mean Corpuscular Volume 89, Mean Corpuscular Hemoglobin 31.9H, Mean Corpuscular Hemoglobin Concent 35.8, Red Cell Distribution Width 11.5L, Platelet Count 188, Mean Platelet Volume 6.0L, Neutrophils (%) (Auto) 66.4, Lymphocytes (%) (Auto) 25.3, Monocytes (%) (Auto) 7.9, Eosinophils (%) (Auto) 0.0, Basophils (%) (Auto) 0.3, Sodium Level 134L, Potassium Level 3.3L, Chloride Level 101, Carbon Dioxide Level 26, Anion Gap 8, Blood Urea Nitrogen 8 , Creatinine 0.6, Estimat Glomerular Filtration Rate > 60, Glucose Level 94, Calcium Level 7.1L, Total Bilirubin 0.3, Aspartate Amino Transf (AST/SGOT) 120H , Alanine Aminotransferase (ALT/SGPT) 77, Alkaline Phosphatase 63, Total Creatine Kinase 1774H, Total Protein 5.7L, Albumin 2.2L, Globulin 3.5, Albumin/ Globulin Ratio 0.6L Height (Feet): 5 Height (Inches): 6.00 Weight (Pounds): 170 General Appearance: no apparent distress, alert EENT: normal ENT inspection Neck: normal alignment Cardiovascular: regular rhythm Respiratory/Chest: lungs clear Abdomen: no organomegaly Edema: mild edema 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
--- NOTE | 2019-06-15 17:48 | NUR ---
NURSE NOTES: WOUND CARE NOTES:Pt presented on admission with two elongated and crescent shaped DTPI which inviolves both R and L lower gluteal cheeks and both upper thighs. DTPI R gluteus is purple with maroon borders, small opening that is vivian noted at Lower/outer R buttocks. Wound is (L)3cm x (W)19.5cm. Wound curves from outer lower gluteal cheek along upper thigh, laterally to medially. DTPI L lower gluteal cheek is purple, indurated with maroon borders, small opening noted to to lower /outer L gluteal john, Base of wound is vivian with small amt sanguineous exudate. Marginal erythema noted periwound. Wound also curves from L gluteal cheek to upper L thigh laterally to medially .(L)3cm x (W)21cm. [place] shaped non-blanching erythema without induration noted to upper/outer R buttocks and upper /outer L buttocks. Both heels are boggy with non-blanching erythema. Tx.Plan: Apply Moisture Barrier Paste to wounds R and L buttocks and posterior /upper R and L thighs. Cover wounds with Optifoam drsgs. Change every 3 days and prn. Apply Cavilon Skin Barrier to both heels. Cover each heel with Optifoam drsg. Change every 7 days and prn Reposition at least every 2hours or as tolerated. Off-load heels with Pillow. APM/CHAYA MATTRESS overlay
--- NOTE | 2019-06-15 19:33 | NUR ---
HAND-OFF: Report given to Eirch GREGORIO. Addendum: 06/15/19 at 1938 by TIM MENDEZ RN RN RN Aware of fall risk.
--- NOTE | 2019-06-15 19:38 | NUR ---
NURSE NOTES: Lab called and report that patient is Covid-19 positive.Will endorse to DARLINE Jung and DARLINE Jung will call Doctor.
--- NOTE | 2019-06-15 19:40 | NUR ---
NURSE NOTES: Pt. received from DARLINE Javier. Pt. AAOx2, on room air, breathing is even and unlabored, no complaints of pain. No IV access at this time, removed per patient; will attempt reinsertion. Bed is low and locked, side rails x3, bed alarm active, and call light is in reach. Will continue to monitor.
--- NOTE | 2019-06-15 19:54 | NUR ---
NURSE NOTES: Pt. reported as COVID POSITIVE, message left for Dr. Jj to notify. Charge nurse is aware. Awaiting return call for orders. Will continue to monitor.
[2019-06-15 20:00] VITALS: BP 154/86
--- NOTE | 2019-06-15 23:15 | NUR ---
NURSE NOTES: Attempted to insert IV access, pt. refused. Discussed and educated the patient needs to have IV access to receive IV antibiotics for current infection, pt did not acknowledge and stated "No, leave me alone." Endorsed by day shift nurse that pt. removed x2 IV access 06/14. Charge nurse aware, will continue to monitor.
[2019-06-16] VITALS: BP 111/68
[2019-06-16 04:00] VITALS: BP 155/68
[2019-06-16] MEDS: Potassium Chloride 40 MEQ in 1/2 NS 1000ml 1,000 ML IV SCH ×2 (04:10→15:00)
[2019-06-16] MEDS: Vancomycin 1.25gm/NS Premix IVPB SCH (04:11)
[2019-06-16 05:07] LABS: BASOPHILS % (AUTO) 0.7 % (0.0-2.0); EOSINOPHILS % (AUTO) 0.1 % (0.0-3.0); HEMATOCRIT 37.7 % (37.0-47.0); HEMOGLOBIN 13.5 G/DL (12.0-16.0); LYMPHOCYTES % (AUTO) 28.5 % (20.0-45.0); MEAN CORPUSCULAR VOLUME 89 FL (80-99); NEUTROPHILS % (AUTO) 61.6 % (45.0-75.0); PLATELET COUNT 212 K/UL (150-450); RED BLOOD COUNT 4.25 M/UL (4.20-5.40); RED CELL DISTRIBUTION WIDTH 11.4 % (11.6-14.8); WHITE BLOOD COUNT 5.3 K/UL (4.8-10.8)
[2019-06-16 05:27] LABS: % IRON SATURATION 12 % (15-50); IRON 19 ug/dL (50-175); TOTAL IRON BINDING CAPACITY 156 ug/dL (250-450)
[2019-06-16 05:41] LABS: ANION GAP 8 mmol/L (5-15); BLOOD UREA NITROGEN 8 mg/dL (7-18); CALCIUM 7.9 MG/DL (8.5-10.1); CARBON DIOXIDE 28 MMOL/L (21-32); CHLORIDE 100 MMOL/L (98-107); CREATININE 0.6 MG/DL (0.55-1.30); FERRITIN 644 NG/ML (8-388); POTASSIUM 4.3 MMOL/L (3.5-5.1); SODIUM 136 MMOL/L (136-145)
--- NOTE | 2019-06-16 07:45 | NUR ---
HAND-OFF: Report given to DARLINE Veras.
[2019-06-16 08:00] VITALS: BP 143/75
--- NOTE | 2019-06-16 08:00 | NUR ---
NURSE NOTES: Received patient lying in bed resting comfortably. Assessed patient from head to toe. Patient is AAO x [address], able to make some needs known, able to self-reposition but is on bedrest, with no c/o pain at this time. IVF running at 100 ml/hr via R hand peripheral IV. No s/s of infiltration. VS WNL except low-grade fever noted with temperature at 100.1 degrees fahrenheit. Patient is on RA with no respiratory distress noted at this time. Incontinent x 2 with LBM on 06/15/19. Patient has contracted BUE with weakness to BLE and c/o of discomfort when moved. Patient will be evaluated closely for possible worsening of s/s of infection.
[2019-06-16] MEDS: Heparin 5000 units/ml inj SUBQ SCH ×2 (09:32→20:23)
[2019-06-16 12:00] VITALS: BP 134/68
--- NOTE | 2019-06-16 12:01 | NUR ---
NURSE NOTES: Patient noted with hands tremors and Rn was told from behavior clinician that patient had episodes. RN informed Dr. Jj with no new order. Dr. Jj is aware that patient is on seroquel with no new order.
--- NOTE | 2019-06-16 12:01 | General Progress Note ---
Assessment/Plan Problem List: (1) Hypokalemia ICD Codes: E87.6 - Hypokalemia SNOMED: 04186973 (2) Hypertension, benign ICD Codes: I10 - Essential (primary) hypertension SNOMED: 34280879 (3) Urinary tract infection due to Proteus ICD Codes: N39.0 - Urinary tract infection, site not specified; B96.4 - Proteus (mirabilis) (morganii) as the cause of diseases classified elsewhere SNOMED: 309932167 (4) Episode of generalized weakness ICD Codes: R53.1 - Weakness SNOMED: 57844205 (5) Cellulitis of both lower extremities ICD Codes: L03.115 - Cellulitis of right lower limb; L03.116 - Cellulitis of left lower limb SNOMED: 816855095 (6) Bacteremia ICD Codes: R78.81 - Bacteremia SNOMED: 7679526 Assessment/Plan: proteus uti, bc bacteroides and G+ cocci, not toxic, wound care, vanco, zosyn Subjective Constitutional: Reports: weakness HEENT: Reports: no symptoms Cardiovascular: Reports: no symptoms Respiratory: Reports: no symptoms Gastrointestinal/Abdominal: Reports: poor appetite Genitourinary: Reports: incontinence Neurologic/Psychiatric: Reports: no symptoms Endocrine: Reports: no symptoms Hematologic/Lymphatic: Reports: no symptoms Allergies: Coded Allergies: No Known Allergies (Unverified , 08/31/18) Objective Last 24 Hour Vital Signs Date Time Temp Pulse Resp B/P (MAP) Pulse Ox O2 Delivery O2 Flow Rate FiO2 06/16/19 09:00 Room Air 06/16/19 08:00 100.1 92 19 143/75 (97) 93 06/16/19 04:00 98.6 88 20 155/68 (97) 96 06/16/19 00:00 99.3 105 19 111/68 (82) 95 06/15/19 21:00 Room Air 06/15/19 20:00 100.0 93 19 154/86 (108) 96 06/15/19 16:00 98.1 85 18 136/76 (96) 97 06/15/19 12:00 97.8 83 18 132/80 (97) 97 Intake and Output 06/15/19 06/16/19 19:00 07:00 Intake Total 1760 ml 200 ml Balance 1760 ml 200 ml Intake Oral 860 ml IV Total 900 ml 200 ml # Voids 6 2 # Bowel Movements 1 Laboratory Tests 06/16/19 04:00: White Blood Count 5.3, Red Blood Count 4.25, Hemoglobin 13.5, Hematocrit 37.7, Mean Corpuscular Volume 89, Mean Corpuscular Hemoglobin 31.7H, Mean Corpuscular Hemoglobin Concent 35.7, Red Cell Distribution Width 11.4L, Platelet Count 212, Mean Platelet Volume 6.2L, Neutrophils (%) (Auto) 61.6, Lymphocytes (%) (Auto) 28.5, Monocytes (%) (Auto) 9.0, Eosinophils (%) (Auto) 0.1, Basophils (%) (Auto ) 0.7, Sodium Level 136, Potassium Level 4.3, Chloride Level 100, Carbon Dioxide Level 28, Anion Gap 8, Blood Urea Nitrogen 8, Creatinine 0.6, Estimat Glomerular Filtration Rate > 60, Glucose Level 81, Calcium Level 7.9L, Iron Level 19L, Total Iron Binding Capacity 156L, Percent Iron Saturation 12L, Unsaturated Iron Binding 137, Ferritin 644H Height (Feet): 5 Height (Inches): 6.00 Weight (Pounds): 170 General Appearance: no apparent distress, alert EENT: normal ENT inspection Neck: normal alignment Cardiovascular: regular rhythm Respiratory/Chest: lungs clear Abdomen: non tender Edema: mild edema 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
--- NOTE | 2019-06-16 12:37 | Infectious Diseases Prog Note ---
Assessment/Plan Assessment/Plan Full consult to follow: A) 1) proteus uti, leg cellulitis 2) covid-19 virus infection 3) possible bacteroides/gram+ bacteremia vs contaminant 4) fevers 5) pmh noted P) 1) vancomycin and zosyn 2) check cultures, labs and f/u chest x-ray 3) no indication for hydroxychloroquine at this time - sats stable and chest x- ray negative 4) d/w Dr. Jj and RN 5) thank you Subjective Allergies: Coded Allergies: No Known Allergies (Unverified , 08/31/18) Objective Vital Signs Last 24 Hour Vital Signs Date Time Temp Pulse Resp B/P (MAP) Pulse Ox O2 Delivery O2 Flow Rate FiO2 06/16/19 09:00 Room Air 06/16/19 08:00 100.1 92 19 143/75 (97) 93 06/16/19 04:00 98.6 88 20 155/68 (97) 96 06/16/19 00:00 99.3 105 19 111/68 (82) 95 06/15/19 21:00 Room Air 06/15/19 20:00 100.0 93 19 154/86 (108) 96 06/15/19 16:00 98.1 85 18 136/76 (96) 97 Height (Feet): 5 Height (Inches): 6.00 Weight (Pounds): 170 Microbiology Date/Time Source Procedure Growth Status 06/13/19 21:04 Nasal Nares MRSA Culture - Final NO METHICILLIN RESISTANT STAPH AUREUS... Complete 06/13/19 13:10 Nasopharynx Coronavirus COVID-19 PCR ([facility]OY) - Final Complete 06/13/19 13:25 Urine,Clean Catch Urine Culture - Final Proteus Mirabilis Complete 06/13/19 21:04 Rectum VRE Culture - Final NO VANCOMYCIN RESISTANT ENTEROCOCCUS ... Complete 06/13/19 21:04 Rectum - Final NO CARBAPENEM-RESISTANT ENTEROBACTERI... Complete Laboratory Tests Test 06/16/19 04:00 White Blood Count 5.3 K/UL (4.8-10.8) Red Blood Count 4.25 M/UL (4.20-5.40) Hemoglobin 13.5 G/DL (12.0-16.0) Hematocrit 37.7 % (37.0-47.0) Mean Corpuscular Volume 89 FL (80-99) Mean Corpuscular Hemoglobin 31.7 PG (27.0-31.0) H Mean Corpuscular Hemoglobin Concent 35.7 G/DL (32.0-36.0) Red Cell Distribution Width 11.4 % (11.6-14.8) L Platelet Count 212 K/UL (150-450) Mean Platelet Volume 6.2 FL (6.5-10.1) L Neutrophils (%) (Auto) 61.6 % (45.0-75.0) Lymphocytes (%) (Auto) 28.5 % (20.0-45.0) Monocytes (%) (Auto) 9.0 % (1.0-10.0) Eosinophils (%) (Auto) 0.1 % (0.0-3.0) Basophils (%) (Auto) 0.7 % (0.0-2.0) Sodium Level 136 MMOL/L (136-145) Potassium Level 4.3 MMOL/L (3.5-5.1) Chloride Level 100 MMOL/L (98-107) Carbon Dioxide Level 28 MMOL/L (21-32) Anion Gap 8 mmol/L (5-15) Blood Urea Nitrogen 8 mg/dL (7-18) Creatinine 0.6 MG/DL (0.55-1.30) Estimat Glomerular Filtration Rate > 60 mL/min (>60) Glucose Level 81 MG/DL (74-106) Calcium Level 7.9 MG/DL (8.5-10.1) L Iron Level 19 ug/dL (50-175) L Total Iron Binding Capacity 156 ug/dL (250-450) L Percent Iron Saturation 12 % (15-50) L Unsaturated Iron Binding 137 ug/dL (112-346) Ferritin 644 NG/ML (8-388) H Current Medications Medications (Trade) Dose Ordered Sig/Venkata Route PRN Reason Start Time Stop Time Status Last Admin Dose Admin Acetaminophen (Tylenol) 650 mg Q4H PRN ORAL Mild Pain (Pain Scale 1-3) 06/13/19 20:15 07/13/19 20:14 Acetaminophen (Tylenol) 650 mg Q4H PRN ORAL Temp >100.5 06/13/19 20:15 07/13/19 20:14 Dextrose (Dextrose 50%) 25 ml Q30M PRN IV Hypoglycemia 06/13/19 20:15 09/11/19 20:14 Dextrose (Dextrose 50%) 50 ml Q30M PRN IV Hypoglycemia 06/13/19 20:15 09/11/19 20:14 Heparin Sodium (Porcine) (Heparin 5000 units/ml) 5,000 units EVERY 12 HOURS SUBQ 06/13/19 21:00 07/28/19 20:59 06/16/19 09:32 Ondansetron HCl (Zofran) 4 mg Q6H PRN IVP Nausea & Vomiting 06/13/19 20:15 07/13/19 20:14 Piperacillin Sod/ Tazobactam Sod 3.375 gm/Sodium Chloride 110 ml @ 27.5 mls/hr EVERY 8 HOURS IVPB 06/16/19 14:00 06/21/19 13:59 Polyethylene Glycol (Miralax) 17 gm HSPRN PRN ORAL Constipation 06/13/19 20:15 07/13/19 20:14 Potassium Chloride 40 meq/ Sodium Chloride 1,020 ml @ 100 mls/hr [id number] IV 06/14/19 12:00 07/14/19 11:59 06/16/19 04:10 Quetiapine Fumarate (SEROqueL) 100 mg DAILY ORAL 06/14/19 09:00 07/29/19 08:59 06/16/19 09:34 Quetiapine Fumarate (SEROqueL) 250 mg BEDTIME ORAL 06/13/19 21:00 07/28/19 20:59 06/15/19 20:17 Vancomycin HCl (Vanco rx to dose) 1 ea DAILY PRN MISC Per rx protocol 06/13/19 20:15 07/13/19 20:14 Vancomycin/Sodium Chloride 275 ml @ 183.333 mls/hr Q24H IVPB 06/15/19 05:00 06/20/19 04:59 06/16/19 04:11 Jeremy Mariano MD June 16, 2019 12:37
[2019-06-16] MEDS: Piperacillin/Tazobactam 3.375 GM in NS 110 ML IVPB SCH ×2 (14:00→21:09)
[2019-06-16 16:00] VITALS: BP 126/83
--- NOTE | 2019-06-16 16:04 | NUR ---
NURSE NOTES: Specimen were collected for blood culture. Specimen sent to lab.
--- NOTE | 2019-06-16 18:15 | NUR ---
NURSE NOTES: Patient received first dose of IV Zosyn at 1400. No s/s of sensitivity/allergic reaction noted. Will continue to monitor.
--- NOTE | 2019-06-16 19:26 | NUR ---
HAND-OFF: Report given to DARLINE Carrillo and endorsed POC.
--- NOTE | 2019-06-16 19:30 | NUR ---
NURSE NOTES: Received report & pt from DARLINE Farley. Pt lying in bed, a&ox2, in room air. No s/s of acute distress & no c/ o pain. Purewick on & connected to wall suction. IV site intact with IVF running as ordered. On droplet & contact precautions. Bed in lowest position, call light within reach. Will continue to monitor.
[2019-06-16 20:00] VITALS: BP 142/67
[2019-06-17] VITALS: BP 108/81
[2019-06-17] MEDS: Potassium Chloride 40 MEQ in 1/2 NS 1000ml 1,000 ML IV SCH ×3 (00:37→21:48)
[2019-06-17 04:00] VITALS: BP 152/76
[2019-06-17 04:23] LABS: BASOPHILS % (AUTO) 1.3 % (0.0-2.0); HEMATOCRIT 36.1 % (37.0-47.0); HEMOGLOBIN 12.8 G/DL (12.0-16.0); LYMPHOCYTES % (AUTO) 36.9 % (20.0-45.0); MEAN CORPUSCULAR VOLUME 88 FL (80-99); MONOCYTES % (AUTO) 6.7 % (1.0-10.0); PLATELET COUNT 238 K/UL (150-450); RED BLOOD COUNT 4.09 M/UL (4.20-5.40); RED CELL DISTRIBUTION WIDTH 11.2 % (11.6-14.8)
[2019-06-17 04:34] LABS: ANION GAP 7 mmol/L (5-15); BLOOD UREA NITROGEN 9 mg/dL (7-18); CALCIUM 7.7 MG/DL (8.5-10.1); CARBON DIOXIDE 27 MMOL/L (21-32); CHLORIDE 100 MMOL/L (98-107); CREATININE 0.6 MG/DL (0.55-1.30); POTASSIUM 4.3 MMOL/L (3.5-5.1); SODIUM 134 MMOL/L (136-145)
[2019-06-17] MEDS: Vancomycin 1.25gm/NS Premix IVPB SCH ×2 (05:01→17:57)
[2019-06-17] MEDS: Piperacillin/Tazobactam 3.375 GM in NS 110 ML IVPB SCH ×3 (05:50→21:48)
--- NOTE | 2019-06-17 07:07 | NUR ---
HAND-OFF: Report given to DARLINE Farley & Jayla Carlton RN.Pt in stable condition.
[2019-06-17 08:00] VITALS: BP 135/62
--- NOTE | 2019-06-17 08:17 | NUR ---
NURSE NOTES: Received patient lying in hospital bed with p200 mattress in semi oneal's position. Patient is AAO x [address], able to make some needs known, and is on bedrest. Patient has no c/o pain or discomfort. Lung sounds CTA on all lobes. Abd sounds active x 4. Patient is incontinent x 2 with purewick connected to suction in place. IV Zosyn running via R hand peripheral IV at 27.5 ml/hr. Optifoam dressings on buttocks, bilateral upper thighs and B heels. Brought patient's breakfast to bedside. Will continue to monitor.
[2019-06-17] MEDS: Heparin 5000 units/ml inj SUBQ SCH ×2 (08:32→21:50)
[2019-06-17] MEDS ORDERED: Tubing IV Secondary IV ONE (08:59)
[2019-06-17] MEDS ORDERED: NS 275ml ONE (08:59)
--- NOTE | 2019-06-17 09:37 | NUR ---
RADIOLOGY DEPT., CHEST X-RAY DONE.-P.DYE
--- NOTE | 2019-06-17 10:14 | Diagnostic Imaging Report ---
Indication: Cough Technique: One view of the chest Comparison: 06/13/2019 Findings: There is a calcified left breast implant again noted. The lungs and pleural spaces are clear. The heart size is normal. There is no significant interim change Impression: No acute process
[2019-06-17 12:00] VITALS: BP 137/66
--- NOTE | 2019-06-17 13:31 | NUR ---
CASE MANAGEMENT:REVIEW SI;COVID-19 VIRUS INFECTION BLE CELLULITIS. BACTEREMIA. PROTEUS UTI. 100.0 95 20 152/76 91% ON RA NA 134 CA 7.7 IS;VANCOMYCIN IV Q12 HRS ZOSYN IV Q8 HRS KCL IN SEROQUEL PO QD HEPARIN SUBQ Q12 HRS MED SURG STATUS DCP;FROM [facility]
--- NOTE | 2019-06-17 14:03 | NUR ---
NURSE NOTES: Noted patient's P200 mattress is not staying on consistently and becomes deflated despite turning off and on to reset. Notified central supply and confirmed that they will contact mattress supplier re malfunction of item.
--- NOTE | 2019-06-17 14:22 | NUR ---
NURSE NOTES: Patient's O2 sat has been in the lower 90's saturation. Notified Dr. Jj and received order to start O2 at 2LPM via NC. Initiated O2 therapy. Patient does not display any s/s of distress at this time. Will continue to monitor.
[2019-06-17 16:00] VITALS: BP 141/69
--- NOTE | 2019-06-17 16:25 | NUR ---
NURSE NOTES: Obtained EKG order from Dr. Mariano and EKG done and result given to Dr. Mariano.
--- NOTE | 2019-06-17 16:28 | NUR ---
NURSE NOTES: 12-lead EKG done per order by Dr. Cox. Results filed into patient's chart. QT 350/435 ms.
--- NOTE | 2019-06-17 16:42 | Infectious Diseases Prog Note ---
Assessment/Plan Assessment/Plan Full consult dictated: A) 1) proteus uti, leg cellulitis 2) covid-19 virus infection - now hypoxic, febrile 3) possible bacteroides/gram+ bacteremia vs contaminant 4) fevers 5) pmh noted P) 1) vancomycin and zosyn, 2) will start hydroxychloroquine since patient now hypoxic 2) monitor labs 3) d/w RN and patient 4) will f/u Subjective Constitutional: Reports: fever, fatigue, other - more sob Respiratory: Denies: shortness of breath Cardiovascular: Denies: chest pain Gastrointestinal/Abdominal: Denies: nausea, vomiting, diarrhea Genitourinary: Reports: other - no luna Neurologic: Denies: headache Psychiatric: Denies: depression Skin: Denies: rash Hematologic: Denies: bleeding Musculoskeletal: Denies: pain Allergies: Coded Allergies: No Known Allergies (Unverified , 08/31/18) Objective Vital Signs Last 24 Hour Vital Signs Date Time Temp Pulse Resp B/P (MAP) Pulse Ox O2 Delivery O2 Flow Rate FiO2 06/17/19 12:00 98.1 95 19 137/66 (89) 91 06/17/19 09:00 Room Air 06/17/19 08:00 97.0 95 19 135/62 (86) 91 06/17/19 04:00 100.0 95 20 152/76 (101) 96 06/17/19 00:00 97.2 92 19 108/81 (90) 93 06/16/19 21:00 Room Air 06/16/19 20:00 98.6 96 20 142/67 (92) 99 Height (Feet): 5 Height (Inches): 6.00 Weight (Pounds): 170 General Appearance: no acute distress HEENT: normocephalic, atraumatic, anicteric Respiratory/Chest: rhonchi - bilaterally Cardiovascular: normal rate, regular rhythm Abdomen: normal bowel sounds, soft, non tender Laboratory Tests Test 06/17/19 04:00 White Blood Count 6.0 K/UL (4.8-10.8) Red Blood Count 4.09 M/UL (4.20-5.40) L Hemoglobin 12.8 G/DL (12.0-16.0) Hematocrit 36.1 % (37.0-47.0) L Mean Corpuscular Volume 88 FL (80-99) Mean Corpuscular Hemoglobin 31.4 PG (27.0-31.0) H Mean Corpuscular Hemoglobin Concent 35.5 G/DL (32.0-36.0) Red Cell Distribution Width 11.2 % (11.6-14.8) L Platelet Count 238 K/UL (150-450) Mean Platelet Volume 5.8 FL (6.5-10.1) L Neutrophils (%) (Auto) 55.0 % (45.0-75.0) Lymphocytes (%) (Auto) 36.9 % (20.0-45.0) Monocytes (%) (Auto) 6.7 % (1.0-10.0) Eosinophils (%) (Auto) 0.0 % (0.0-3.0) Basophils (%) (Auto) 1.3 % (0.0-2.0) Sodium Level 134 MMOL/L (136-145) L Potassium Level 4.3 MMOL/L (3.5-5.1) Chloride Level 100 MMOL/L (98-107) Carbon Dioxide Level 27 MMOL/L (21-32) Anion Gap 7 mmol/L (5-15) Blood Urea Nitrogen 9 mg/dL (7-18) Creatinine 0.6 MG/DL (0.55-1.30) Estimat Glomerular Filtration Rate > 60 mL/min (>60) Glucose Level 87 MG/DL (74-106) Calcium Level 7.7 MG/DL (8.5-10.1) L Vancomycin Level Trough 2.6 ug/mL (5.0-12.0) L Current Medications Medications (Trade) Dose Ordered Sig/Venkata Route PRN Reason Start Time Stop Time Status Last Admin Dose Admin Acetaminophen (Tylenol) 650 mg Q4H PRN ORAL Mild Pain (Pain Scale 1-3) 06/13/19 20:15 07/13/19 20:14 Acetaminophen (Tylenol) 650 mg Q4H PRN ORAL Temp >100.5 06/13/19 20:15 07/13/19 20:14 Dextrose (Dextrose 50%) 25 ml Q30M PRN IV Hypoglycemia 06/13/19 20:15 09/11/19 20:14 Dextrose (Dextrose 50%) 50 ml Q30M PRN IV Hypoglycemia 06/13/19 20:15 09/11/19 20:14 Heparin Sodium (Porcine) (Heparin 5000 units/ml) 5,000 units EVERY 12 HOURS SUBQ 06/13/19 21:00 07/28/19 20:59 06/17/19 08:32 Ondansetron HCl (Zofran) 4 mg Q6H PRN IVP Nausea & Vomiting 06/13/19 20:15 07/13/19 20:14 Piperacillin Sod/ Tazobactam Sod 3.375 gm/Sodium Chloride 110 ml @ 27.5 mls/hr EVERY 8 HOURS IVPB 06/16/19 14:00 06/21/19 13:59 06/17/19 13:34 Polyethylene Glycol (Miralax) 17 gm HSPRN PRN ORAL Constipation 06/13/19 20:15 07/13/19 20:14 Potassium Chloride 40 meq/ Sodium Chloride 1,020 ml @ 100 mls/hr [id number] IV 06/14/19 12:00 07/14/19 11:59 06/17/19 13:34 Quetiapine Fumarate (SEROqueL) 100 mg DAILY ORAL 06/14/19 09:00 07/29/19 08:59 06/17/19 08:31 Quetiapine Fumarate (SEROqueL) 250 mg BEDTIME ORAL 06/13/19 21:00 07/28/19 20:59 06/16/19 20:23 Vancomycin HCl (Vanco rx to dose) 1 ea DAILY PRN MISC Per rx protocol 06/13/19 20:15 07/13/19 20:14 Vancomycin/Sodium Chloride 275 ml @ 183.333 mls/hr Q12H IVPB 06/17/19 17:00 06/22/19 16:59 Jeremy Mariano MD June 17, 2019 16:42
--- NOTE | 2019-06-17 17:16 | NUR ---
NURSE NOTES: Patient is becoming more hypoxic saturating at 91-92% on 2L NC. Titrated O2 to 3.5 LPM via NC and patient's saturation increased to 96%. Provided update to ID, Dr. Mariano. New order received for patient to start receiving hydroxychloroquine. Patient's son, Raul Leon, has been notified re new medication ordered. Dr. Mariano also s/w Raul re patient's new dx of COVID-19 infection and agrees with tx plan. Received new order for EKG to be done tomorrow morning to monitor for arrythmia.
--- NOTE | 2019-06-17 17:25 | NUR ---
NURSE NOTES: Paged Dr. Jj to clarify administration of IV NS with KCL 40meq infusing at 100 ml/hr along with new order of hydroxychloroquine. No answer. LVM. Awaiting response.
--- NOTE | 2019-06-17 19:31 | NUR ---
HAND-OFF: Report given to DARLINE Nice, and DARLINE Josue. POC endorsed.
--- NOTE | 2019-06-17 19:32 | NUR ---
NURSE NOTES: Received patient in bed. A&OX2. IV site patent and intact. NC 3.5L on. No s/s of respiratory distress noted. Bed in lowest position. Call light within reach. Will continue to monitor.
[2019-06-17 20:00] VITALS: BP 151/82
--- NOTE | 2019-06-17 20:24 | General Progress Note ---
Assessment/Plan Problem List: (1) Hypokalemia ICD Codes: E87.6 - Hypokalemia SNOMED: 06435251 (2) Hypertension, benign ICD Codes: I10 - Essential (primary) hypertension SNOMED: 97491955 (3) Urinary tract infection due to Proteus ICD Codes: N39.0 - Urinary tract infection, site not specified; B96.4 - Proteus (mirabilis) (morganii) as the cause of diseases classified elsewhere SNOMED: 783022293 (4) Episode of generalized weakness ICD Codes: R53.1 - Weakness SNOMED: 96823838 (5) Cellulitis of both lower extremities ICD Codes: L03.115 - Cellulitis of right lower limb; L03.116 - Cellulitis of left lower limb SNOMED: 961162155 (6) Bacteremia ICD Codes: R78.81 - Bacteremia SNOMED: 1087367 Assessment/Plan: proteus uti, bc bacteroides and G+ cocci, not toxic, wound care, vanco, zosyn covid neg Subjective Constitutional: Reports: weakness HEENT: Reports: no symptoms Cardiovascular: Reports: no symptoms Respiratory: Reports: cough Gastrointestinal/Abdominal: Reports: no symptoms Genitourinary: Reports: no symptoms Neurologic/Psychiatric: Reports: weakness Endocrine: Reports: no symptoms Hematologic/Lymphatic: Reports: no symptoms Allergies: Coded Allergies: No Known Allergies (Unverified , 08/31/18) Objective Last 24 Hour Vital Signs Date Time Temp Pulse Resp B/P (MAP) Pulse Ox O2 Delivery O2 Flow Rate FiO2 06/17/19 16:00 99.7 97 19 141/69 (93) 92 06/17/19 12:00 98.1 95 19 137/66 (89) 91 06/17/19 09:00 Room Air 06/17/19 08:00 97.0 95 19 135/62 (86) 91 06/17/19 04:00 100.0 95 20 152/76 (101) 96 06/17/19 00:00 97.2 92 19 108/81 (90) 93 06/16/19 21:00 Room Air Intake and Output 06/16/19 06/17/19 19:00 07:00 Intake Total 1310.0 ml 1238 ml Output Total 600 ml Balance 1310.0 ml 638 ml Intake Oral 120 ml IV Total 710.0 ml 1000 ml Other 600 ml 118 ml Output Urine Total 600 ml Laboratory Tests 06/17/19 04:00: White Blood Count 6.0, Red Blood Count 4.09L, Hemoglobin 12.8, Hematocrit 36.1L , Mean Corpuscular Volume 88, Mean Corpuscular Hemoglobin 31.4H, Mean Corpuscular Hemoglobin Concent 35.5, Red Cell Distribution Width 11.2L, Platelet Count 238, Mean Platelet Volume 5.8L, Neutrophils (%) (Auto) 55.0, Lymphocytes (%) (Auto) 36.9, Monocytes (%) (Auto) 6.7, Eosinophils (%) (Auto) 0.0, Basophils (%) (Auto) 1.3, Sodium Level 134L, Potassium Level 4.3, Chloride Level 100, Carbon Dioxide Level 27, Anion Gap 7, Blood Urea Nitrogen 9, Creatinine 0.6, Estimat Glomerular Filtration Rate > 60, Glucose Level 87, Calcium Level 7.7L, Vancomycin Level Trough 2.6L Height (Feet): 5 Height (Inches): 6.00 Weight (Pounds): 170 General Appearance: no apparent distress, alert EENT: normal ENT inspection Neck: normal alignment Cardiovascular: normal rate Respiratory/Chest: lungs clear Abdomen: non tender Edema: trace edema 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
[2019-06-17] MEDS ORDERED: Hydroxychloroquine Fact Sheet MISC SCH (21:00)
[2019-06-18] VITALS (8 sets, daily range): BP systolic 130–144; BP diastolic 58–85
--- NOTE | 2019-06-18 01:29 | Consultation ---
DATE OF CONSULTATION: 06/17/2019 INFECTIOUS DISEASE CONSULTATION CONSULTING PHYSICIAN: Jeremy Mariano MD. ATTENDING PHYSICIAN: Dmitri Jj MD. REFERRING PHYSICIAN: Dmitri Jj MD. REASON FOR CONSULTATION: COVID-19 virus infection, fevers, hypoxia, Proteus UTI, bacteremia. CHIEF COMPLAINT: The patient's chief complaint coming into the hospital is cellulitis of the lower extremities. HISTORY OF PRESENT ILLNESS: This is a 78-year-old female who comes into [facility]. Patient came in with what looks like lower extremity cellulitis. Patient has been febrile. Workup shows that she has a Proteus UTI that was fairly sensitive. In addition, chest x-ray was negative. However, she has persistent fevers. She had testing for COVID-19 virus by PCR, which was detected. She currently is more hypoxic with negative chest x-ray. Infectious Disease consultation is requested for antibiotic management in a patient with multiple infections including Proteus UTI and possible bacteremia secondary to Bacteroides and Staph species or coag-negative staph. Patient was on Vanco and Zosyn because of worsening hypoxia and fevers and was started on hydroxychloroquine. The QTc interval was less than 450, which suggests that she should be safe using hydroxychloroquine. Case discussed with patient's son also at length and he gives clearance to use the hydroxychloroquine. We will continue Vanco, Zosyn, hydroxychloroquine for now. MAR was noted. Orders were noted. Notes and records were reviewed. REVIEW OF SYSTEMS: CONSTITUTIONAL: Patient has hypoxia. She has fevers. No chills. HEAD AND NECK: No headache or neck stiffness. No thrush or dysphagia. CARDIAC: No chest pain. GASTROINTESTINAL: No nausea, vomiting, or diarrhea. GENITOURINARY: She has no Olvera. PULMONARY: She has hypoxia. No significant cough or shortness of breath, but she does have hypoxia requiring more O2. No hemoptysis or secretions. SKIN: She has no rash or itching. EXTREMITIES: She has pain and swelling and cellulitis. NEUROLOGIC: No seizures. Generalized fatigue. No focal weakness. PAST MEDICAL HISTORY: Patient has a past medical history of hypertension and psychiatric disease. She has history of weakness and obesity. No history of diabetes or cancer mentioned. No history of cardiac disease. ALLERGIES: No known drug allergies. No antibiotic allergies. SOCIAL HISTORY: Negative for smoking, alcohol, or drug abuse. FAMILY HISTORY: Noncontributory. Negative for tuberculosis or cancer. MEDICATIONS: Upon reviewing the MAR, she is on following medications. I started her on hydroxychloroquine. She is also on Vanco, Zosyn. She is on potassium, heparin, quetiapine, acetaminophen. She is on Zofran, IV fluids. Outside medications noted and reconciliated. PHYSICAL EXAMINATION: VITAL SIGNS: She has been having fevers. Currently her temperature is 99.7, T-max 100.1. Other vital signs, pulse rate 97, respiratory rate 19, blood pressure 141/69, saturation is high at 91% on room air requiring mow up to 3.5 L of O2 at this time, at least 2 L. Pulse rate has been as high as 105. GENERAL: Alert, responsive. Mild hypoxia noted. HEAD AND NECK: Normocephalic. Oral exam, no thrush. Eye, no icterus. Neck is supple. HEART: Regular. No gallop or murmur. ABDOMEN: Soft. Positive bowel sounds. Nontender. LUNGS: Few bilateral rhonchi. No definite rales. SKIN: No rash. MUSCULOSKELETAL: No septic arthritis. Legs with mild cellulitis and redness and warmth. PERIPHERAL VASCULAR: No gangrene. GENITOURINARY: She has no Olvera. LINE SITES: Without phlebitis. NEUROLOGIC: Generalized weakness. Alert, responsive. LABORATORY DATA: Creatinine 0.6. White count 6.0, hemoglobin 12.8. Cultures, urine culture greater 100,000 Proteus, sensitivities were noted. Blood cultures initially had Bacteroides and Staph hominis, unclear if that is a contaminant. COVID-19 PCR testing is positive. IMAGING STUDIES: Chest x-ray showed no acute findings. ASSESSMENT AND PLAN: 1. Patient has COVID-19 virus infection, now with hypoxia. Patient was requiring I think at least 2 L possibly 3 to 3.5 L of O2 requirement and this is an acute change. Chest x-ray is negative. However, CT scan is more sensitive. We will avoid this because of protocol and just follow up on chest x-ray and clinical progression. At this time, I will start hydroxychloroquine for COVID-19 virus infection, hypoxia, and fevers. This was discussed with the son who agrees with therapy and also discussed with pharmacy who started the therapy. EKG was done with a QTc interval less than 450, which suggested it should be appropriate in this patient. Continue Vanco and Zosyn at this time also for possible coag-negative staph and Bacteroides bacteremia and also Proteus UTI. Monitor fevers. Monitor respiratory status. Follow up on EKG and chest x-ray and laboratories. Continue Vanco, Zosyn, hydroxychloroquine for now for Proteus UTI, possible Bacteroides, coag-negative Staph bacteremia, and COVID-19 virus infection. Check followup laboratories and chest x-ray. 2. Patient has history of hypertension. Treatment per primary care team including Dr. Jj. 3. Patient has history of weakness. 4. Psychiatric disease. 5. Obesity. 6. No known drug allergies. 7. Family history noncontributory. 8. Social history negative. 9. MAR was noted. 10. Case discussed with RN. 11. COVID-19 virus isolation. 12. Case discussed with Dr. Jj yesterday. 13. Past medical history includes obesity, hypertension, psychiatric disease, weakness. No history diabetes or cancer. 14. Continue treatment per primary consultants. Jeremy Mariano M.D. DR: NIKOLAY JOB#: [id number] CC: JASKARAN
[2019-06-18] MEDS: Vancomycin 1.25gm/NS Premix IVPB SCH ×2 (04:32→17:27)
[2019-06-18] MEDS: Piperacillin/Tazobactam 3.375 GM in NS 110 ML IVPB SCH ×3 (06:07→21:40)
[2019-06-18] MEDS: Potassium Chloride 40 MEQ in 1/2 NS 1000ml 1,000 ML IV SCH ×2 (06:07→17:42)
[2019-06-18 06:09] LABS: BASOPHILS % (AUTO) 0.7 % (0.0-2.0); EOSINOPHILS % (AUTO) 0.2 % (0.0-3.0); HEMATOCRIT 34.7 % (37.0-47.0); HEMOGLOBIN 12.3 G/DL (12.0-16.0); LYMPHOCYTES % (AUTO) 26.6 % (20.0-45.0); MEAN CORPUSCULAR VOLUME 89 FL (80-99); MONOCYTES % (AUTO) 7.5 % (1.0-10.0); PLATELET COUNT 273 K/UL (150-450); RED BLOOD COUNT 3.91 M/UL (4.20-5.40); RED CELL DISTRIBUTION WIDTH 11.1 % (11.6-14.8); WHITE BLOOD COUNT 6.9 K/UL (4.8-10.8)
[2019-06-18 06:58] LABS: ALANINE AMINOTRANSFERASE 88 U/L (12-78); ALBUMIN 2.1 G/DL (3.4-5.0); ALBUMIN/GLOBULIN RATIO 0.5 (1.0-2.7); ALKALINE PHOSPHATASE 97 U/L (46-116); ANION GAP 9 mmol/L (5-15); ASPARTATE AMINO TRANSFERASE 98 U/L (15-37); BILIRUBIN,TOTAL 0.4 MG/DL (0.2-1.0); BLOOD UREA NITROGEN 6 mg/dL (7-18); CALCIUM 7.5 MG/DL (8.5-10.1); CARBON DIOXIDE 26 MMOL/L (21-32); CHLORIDE 101 MMOL/L (98-107); CREATININE 0.5 MG/DL (0.55-1.30); POTASSIUM 4.4 MMOL/L (3.5-5.1); SODIUM 136 MMOL/L (136-145)
--- NOTE | 2019-06-18 07:20 | NUR ---
NURSE NOTES: Received patient in bed. Awake, alert x2. On simple mask 3 lpm. Iv in the right hands running IVF as ordered. IV in the Left forearm, site intact. Purewick in place. Patient denies pain at this time. On air mattress. Bed low and locked, call light within reach.
--- NOTE | 2019-06-18 07:46 | NUR ---
HAND-OFF: Report given to Myron GREGORIO.
--- NOTE | 2019-06-18 08:58 | NUR ---
CHARGE NURSE NOTE: Abnormal ECG. Pt is on hydroxychloroquine sulfate. notified. He will see pt shortly.
--- NOTE | 2019-06-18 09:45 | NUR ---
RADIOLOGY DEPT., CHEST X-RAY DONE.-P.DYE
[2019-06-18] MEDS: Heparin 5000 units/ml inj SUBQ SCH ×2 (09:47→21:43)
--- NOTE | 2019-06-18 11:40 | General Progress Note ---
Assessment/Plan Problem List: (1) Hypokalemia ICD Codes: E87.6 - Hypokalemia SNOMED: 00873953 (2) Hypertension, benign ICD Codes: I10 - Essential (primary) hypertension SNOMED: 54198735 (3) Urinary tract infection due to Proteus ICD Codes: N39.0 - Urinary tract infection, site not specified; B96.4 - Proteus (mirabilis) (morganii) as the cause of diseases classified elsewhere SNOMED: 982667652 (4) Episode of generalized weakness ICD Codes: R53.1 - Weakness SNOMED: 33363268 (5) Cellulitis of both lower extremities ICD Codes: L03.115 - Cellulitis of right lower limb; L03.116 - Cellulitis of left lower limb SNOMED: 192689136 (6) Bacteremia ICD Codes: R78.81 - Bacteremia SNOMED: 0420440 (7) Dysphagia ICD Codes: R13.10 - Dysphagia, unspecified SNOMED: 45265595, 335120467 Assessment/Plan: proteus uti, bc bacteroides and G+ cocci, not toxic, wound care, vanco, zosyn covid positive, ST swallow eval Subjective Constitutional: Reports: weakness HEENT: Reports: no symptoms Cardiovascular: Reports: no symptoms Respiratory: Reports: cough Gastrointestinal/Abdominal: Reports: poor appetite Genitourinary: Reports: no symptoms Neurologic/Psychiatric: Reports: pre-existing deficit Endocrine: Reports: no symptoms Allergies: Coded Allergies: No Known Allergies (Unverified , 08/31/18) Objective Last 24 Hour Vital Signs Date Time Temp Pulse Resp B/P (MAP) Pulse Ox O2 Delivery O2 Flow Rate FiO2 06/18/19 09:00 Nasal Cannula 3.5 06/18/19 08:00 97.9 95 19 133/63 (86) 91 06/18/19 04:00 97.6 98 18 144/77 (99) 94 06/18/19 00:00 97.8 79 18 131/85 (100) 94 06/17/19 21:00 Nasal Cannula 3.5 06/17/19 20:00 97.2 97 18 151/82 (105) 95 06/17/19 16:00 99.7 97 19 141/69 (93) 92 06/17/19 12:00 98.1 95 19 137/66 (89) 91 Intake and Output 06/17/19 06/18/19 19:00 07:00 Intake Total 1243.333 ml 1476.667 ml Output Total 1500 ml 1600 ml Balance -256.667 ml -123.333 ml IV Total 1243.333 ml 1476.667 ml Output Urine Total 1500 ml 1600 ml Laboratory Tests 06/18/19 04:53: White Blood Count 6.9, Red Blood Count 3.91L, Hemoglobin 12.3, Hematocrit 34.7L , Mean Corpuscular Volume 89, Mean Corpuscular Hemoglobin 31.5H, Mean Corpuscular Hemoglobin Concent 35.5, Red Cell Distribution Width 11.1L, Platelet Count 273, Mean Platelet Volume 5.7L, Neutrophils (%) (Auto) 65.0, Lymphocytes (%) (Auto) 26.6, Monocytes (%) (Auto) 7.5, Eosinophils (%) (Auto) 0.2, Basophils (%) (Auto) 0.7, Sodium Level 136, Potassium Level 4.4, Chloride Level 101, Carbon Dioxide Level 26, Anion Gap 9, Blood Urea Nitrogen 6L, Creatinine 0.5L, Estimat Glomerular Filtration Rate > 60, Glucose Level 98, Calcium Level 7.5L, Total Bilirubin 0.4, Aspartate Amino Transf (AST/SGOT) 98H, Alanine Aminotransferase (ALT/SGPT) 88H, Alkaline Phosphatase 97, Total Protein 6.2L, Albumin 2.1L, Globulin 4.1, Albumin/Globulin Ratio 0.5L Height (Feet): 5 Height (Inches): 6.00 Weight (Pounds): 170 General Appearance: no apparent distress EENT: normal ENT inspection Neck: normal alignment Cardiovascular: regular rhythm Respiratory/Chest: lungs clear Abdomen: soft Edema: no edema noted Arm (L), no edema noted Arm (R), no edema noted Leg (L), no edema noted Leg (R), no edema noted Pedal (L), no edema noted Pedal (R), no edema noted 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
--- NOTE | 2019-06-18 12:00 | NUR ---
NURSE NOTES: Patient has poor appetite. Called Dr. Jj's office to notify, left message. Awaiting response.
--- NOTE | 2019-06-18 12:25 | Diagnostic Imaging Report ---
Indication: Shortness of breath Technique: One view of the chest Comparison: 06/17/2019 Findings: Bilateral interstitial infiltrates and focal groundglass opacities appear slightly increased from the prior study. The heart size is upper limits of normal. Impression: Increased bilateral interstitial and focal groundglass opacities, likely pneumonia, over one day
--- NOTE | 2019-06-18 15:02 | NUR ---
P.T Note: P.T evaluation complete and tx initiated. Please refer to P.T evaluation for full report.Pt is alert, orient to self/person and place but not to time. Pt able to carry on simple conversation and follows simple one step commands however resistive and non receptive to mobility instructions. Pt is limited by fear of mobility resulting to becoming apprehensive and resistive to mobility despite gentle verbal and manual cues. Pt required MAX A x 2 to turn to L/R side of the bed, Dependent/total assist x 2 to partially sit at the EOB: pt not able to fully establish upright sitting position as pt became more resistive and retropulsive. OOB to chair transfer is not safe and feasible at this time. Will continue to progress with functional activities as pt cooperates and tolerates P.T. Recommend return to prior living arrangement.
--- NOTE | 2019-06-18 16:10 | NUR ---
FRAME BUILDER BEDSIDE SWALLOW REPORT (Please see care activity section for complete report) REFERRED FOR BEDSIDE SWALLOW EVALUATION BY DR JETT. DYSPHAGIA RISK FACTORS FOR THIS 78 Y.O. FEMALE. ACUTE ISSUES HYPOXIA, FEVER, UTI 2/2 PROTEUS, B LE CELLULITIS, EPISODE OF GENERAL WEAKNESS, HYPOKALEMIA, DYSPHAGIA COMORBIDITIES HTN, OBESITY, PSYCHIATRIC DISEASE, Pt's son also reports h/o Dementia ? (not in eMAR) RELEVANT MEDICATIONS: Seroquel (Anti-psych) PRIOR FUNCTION: FRAME BUILDER attempted to call [facility] for further information on PLOF, however, no answer. Pt's son, Rae (lives out of state) has not seen his mother in ~ 2 years and does not know most current diet, previously Pt consumed regular solids w/ thin liquids. At the time of the evaluation, Pt is on puree solids w/ thin liquids. VITALS: Pt is on nasal cannula 3.5 L/min; SP02% 94%; Respiratory Rate: 18; HR: 92 bpm. CXR ON 06/18/19; Comparison: 06/17/2019 Impression: Increased bilateral interstitial and focal groundglass opacities, likely pneumonia, over one day SPEECH/LANGUAGE: Pt is confused, orientated x2 (self, general location), Pt speaks [place] and Telugu. Pt does not know the year, reports living at home alone (lives at a SNF). Ability to communicate wants and needs is intact, although, presenting w/ cognitive communicative deficits (i.e. memory) RN REPORTS: Pt observed w/ overt s/s of aspiration w/ thin liquids. POLST: NONE ON RECORD, FRAME BUILDER SPOKE TO PTS SON, RAE, WHO IS UNSURE OF PTS WISHES (FRAME BUILDER made embedded case manager, Carmen, aware that Rae would like further information on POLST) Pt required repetitive cues to maintain alertness/attention during the evaluation. Intact natural dentition, Pt w/ lingual tremor, unable to extend tongue w/ attempt appearing apraxic. Does follow 1-step verbal cues. Oral secretion management is intact. INITIAL IMPRESSIONS: Mild to moderate oral phase and probable mild pharyngeal phase dysphagia compounded by generalized weakness and cognitive-behavioral deficits with decreased lingual ROM and strength, increased oral prep and transit times, and delayed transit times. PATIENT IS AT A RISK FOR SILENT ASPIRATION AND POOR PO INTAKE DUE TO LETHARGY AND GENERALIZED WEAKNESS PO Trials: -Thin Liquids via teaspoon w/ immediate overt s/s of aspiration. Laryngeal elevation per palpations is mildly delayed. -[place] Thick Liquids via teaspoon and cup, no overt s/s of aspiration, Pt reports easier to swallow. laryngeal elevation appears fair -Puree Solids via teaspoon w/ no overt s/s of aspiration, A-P transit to BOT is prolonged and laryngeal elevation appears fair. Pt refused additional trials of solid textures, FRAME BUILDER plans to complete PO trials during future dysphagia management and tx sessions to determine appropriateness for diet texture upgrade. RECOMMENDATIONS: 1. Downgrade to Moist Puree w/ [place] Thick Liquids w/ 1to1 assistance at meals and implementing aspiration precautions posted above HOB. 2.Defer to RD for nutritional supplements freq/type. 3.Pt requires oral hygiene/care BID. NURSING TO ASSIST PT W/ THIN. 4.SKILLED ST SERVICES TO F/U 3x a week x 1 week for dysphagia management and Cog Comm Eval/tx for communication tips. 5.MBSS IP OR OP (IF D/C) when COVID-19 NEG FRAME BUILDER educated Pt's son, Rae, on results, recommendations, and POC. Rae expressed understanding. FRAME BUILDER educated RN on results, recommendations, aspiration precautions, and POC.
--- NOTE | 2019-06-18 19:30 | NUR ---
HAND-OFF: Report given to Tex GREGORIO.
--- NOTE | 2019-06-18 19:31 | NUR ---
NURSE NOTES: Received patient in bed. A&OX2. IV sites are patent and intact. NC 3.5L on. No s/s of respiratory distress noted. Bed in lowest position. Call light within reach. Will continue to monitor.
[2019-06-19] VITALS (7 sets, daily range): BP systolic 104–133; BP diastolic 51–92
[2019-06-19] MEDS: Potassium Chloride 40 MEQ in 1/2 NS 1000ml 1,000 ML IV SCH (03:47)
[2019-06-19 04:23] LABS: BASOPHILS % (AUTO) 0.7 % (0.0-2.0); EOSINOPHILS % (AUTO) 0.6 % (0.0-3.0); HEMATOCRIT 31.2 % (37.0-47.0); HEMOGLOBIN 11.6 G/DL (12.0-16.0); LYMPHOCYTES % (AUTO) 24.3 % (20.0-45.0); MEAN CORPUSCULAR VOLUME 87 FL (80-99); MONOCYTES % (AUTO) 6.4 % (1.0-10.0); NEUTROPHILS % (AUTO) 68.1 % (45.0-75.0); PLATELET COUNT 270 K/UL (150-450); RED BLOOD COUNT 3.59 M/UL (4.20-5.40); RED CELL DISTRIBUTION WIDTH 10.9 % (11.6-14.8); WHITE BLOOD COUNT 8.6 K/UL (4.8-10.8)
[2019-06-19 04:41] LABS: ALANINE AMINOTRANSFERASE 101 U/L (12-78); ALBUMIN 1.9 G/DL (3.4-5.0); ALBUMIN/GLOBULIN RATIO 0.5 (1.0-2.7); ALKALINE PHOSPHATASE 120 U/L (46-116); ANION GAP 8 mmol/L (5-15); ASPARTATE AMINO TRANSFERASE 108 U/L (15-37); BILIRUBIN,TOTAL 0.5 MG/DL (0.2-1.0); BLOOD UREA NITROGEN 7 mg/dL (7-18); CALCIUM 7.3 MG/DL (8.5-10.1); CARBON DIOXIDE 25 MMOL/L (21-32); CHLORIDE 100 MMOL/L (98-107); CREATINE KINASE 120 U/L (26-308); CREATININE 0.5 MG/DL (0.55-1.30); POTASSIUM 4.3 MMOL/L (3.5-5.1); SODIUM 133 MMOL/L (136-145)
--- NOTE | 2019-06-19 04:59 | NUR ---
NURSE NOTES: Received a vancomycin trough level of 10.1 and then called pharmacy, spoke with Meg. She said is ok to give 5 am dose of vancomycin and that she will go ahead and titrate the next level.
[2019-06-19] MEDS: Piperacillin/Tazobactam 3.375 GM in NS 110 ML IVPB SCH ×3 (05:25→21:02)
--- NOTE | 2019-06-19 05:43 | NUR ---
NURSE NOTES: The current dose of vancomycin was given per pharmacy order but was unable to scan because the pharmacy changed the time for the next dose.
--- NOTE | 2019-06-19 07:30 | NUR ---
NURSE NOTES: Report received from Tex Do RN. Seen on rounds, AxOx2, NC at 3.5lpm, tolerating well. Afebrile, not in distress, no c/o pain. PIV on right hand and left forearm patent and intact. Bed low and locked, siderails up x2, zone alarms on 1, call light placed within reach and instructed to use to call for assistance. Will continue to monitor and implement plan of care.
--- NOTE | 2019-06-19 07:45 | NUR ---
HAND-OFF: Report given to Catalina GREGORIO.
[2019-06-19] MEDS: Heparin 5000 units/ml inj SUBQ SCH ×2 (08:51→20:45)
--- NOTE | 2019-06-19 10:13 | NUR ---
RD ASSESSMENT & RECOMMENDATIONS SEE CARE ACTIVITY FOR COMPLETE ASSESSMENT DAILY ESTIMATED NEEDS: Needs based on wound, 63.6kg adj 30-35 kcals/kg 7485-4948 total kcals 1.25-1.5 g protein/kg 80-95 g total protein 25-30 mL/kg 7120-7251 total fluid mLs NUTRITION DIAGNOSIS: Swallowing difficulty r/t dysphagia as evidenced by STEREO OPERATOR eval, now on puree texture diet, NTL, 1:1 feeds, poor intake. CURRENT DIET: Now Regular puree/ NTL PO DIET RECOMMENDATIONS: Regular diet. Texture per STEREO OPERATOR 1 ADDITIONAL RECOMMENDATIONS: 1) Add Ensure Enlive TID 2) Add MIRIAM BID, rec WC eval 3) Recalibrate bed scale for accurate CBW
--- NOTE | 2019-06-19 11:54 | General Progress Note ---
Assessment/Plan Problem List: (1) Hypokalemia ICD Codes: E87.6 - Hypokalemia SNOMED: 88979879 (2) Hypertension, benign ICD Codes: I10 - Essential (primary) hypertension SNOMED: 00243304 (3) Urinary tract infection due to Proteus ICD Codes: N39.0 - Urinary tract infection, site not specified; B96.4 - Proteus (mirabilis) (morganii) as the cause of diseases classified elsewhere SNOMED: 858178882 (4) Episode of generalized weakness ICD Codes: R53.1 - Weakness SNOMED: 93611449 (5) Cellulitis of both lower extremities ICD Codes: L03.115 - Cellulitis of right lower limb; L03.116 - Cellulitis of left lower limb SNOMED: 838664495 (6) Bacteremia ICD Codes: R78.81 - Bacteremia SNOMED: 1306911 (7) Dysphagia ICD Codes: R13.10 - Dysphagia, unspecified SNOMED: 53645189, 586795068 Assessment/Plan: proteus uti, bc bacteroides and G+ cocci, not toxic, wound care, vanco, zosyn covid positive, ST swallow eval try stopping iv fluids Subjective ROS Limited/Unobtainable: Yes Allergies: Coded Allergies: No Known Allergies (Unverified , 08/31/18) Objective Last 24 Hour Vital Signs Date Time Temp Pulse Resp B/P (MAP) Pulse Ox O2 Delivery O2 Flow Rate FiO2 06/19/19 09:00 Nasal Cannula 3.5 06/19/19 08:00 97.9 92 19 129/52 (77) 96 06/19/19 07:43 95 Nasal Cannula 3.0 32 06/19/19 04:00 98.6 91 18 106/51 (69) 95 06/19/19 00:00 98.6 88 18 113/52 (72) 96 06/18/19 21:00 Nasal Cannula 3.5 06/18/19 20:00 98.9 101 18 130/64 (86) 95 06/18/19 16:00 98.1 94 19 137/78 (97) 94 06/18/19 12:00 97.9 92 18 132/58 (82) 94 Intake and Output 06/18/19 06/19/19 19:00 07:00 Intake Total 1140 ml 1237.5 ml Output Total 900 ml 500 ml Balance 240 ml 737.5 ml Intake Oral 240 ml IV Total 900 ml 1237.5 ml Output Urine Total 900 ml 500 ml Laboratory Tests 06/19/19 04:00: White Blood Count 8.6, Red Blood Count 3.59L, Hemoglobin 11.6L, Hematocrit 31.2L , Mean Corpuscular Volume 87, Mean Corpuscular Hemoglobin 32.3H, Mean Corpuscular Hemoglobin Concent 37.2H, Red Cell Distribution Width 10.9L, Platelet Count 270, Mean Platelet Volume 6.0L, Neutrophils (%) (Auto) 68.1, Lymphocytes (%) (Auto) 24.3, Monocytes (%) (Auto) 6.4, Eosinophils (%) (Auto) 0.6, Basophils (%) (Auto) 0.7, Sodium Level 133L, Potassium Level 4.3, Chloride Level 100, Carbon Dioxide Level 25, Anion Gap 8, Blood Urea Nitrogen 7, Creatinine 0.5L, Estimat Glomerular Filtration Rate > 60, Glucose Level 97, Calcium Level 7.3L, Total Bilirubin 0.5, Aspartate Amino Transf (AST/SGOT) 108H , Alanine Aminotransferase (ALT/SGPT) 101H, Alkaline Phosphatase 120H, Total Creatine Kinase 120, Total Protein 5.8L, Albumin 1.9L, Globulin 3.9, Albumin/ Globulin Ratio 0.5L, Vancomycin Level Trough 10.1 Height (Feet): 5 Height (Inches): 6.00 Weight (Pounds): 170 General Appearance: lethargic EENT: normal ENT inspection Neck: normal alignment Cardiovascular: regular rhythm Respiratory/Chest: lungs clear Abdomen: non tender Edema: no edema noted Arm (L), no edema noted Arm (R), no edema noted Leg (L), no edema noted Leg (R), no edema noted Pedal (L), no edema noted Pedal (R), no edema noted Generalized Dmitri Jj MD June 19, 2019 11:54
--- NOTE | 2019-06-19 13:08 | NUR ---
CASE MANAGEMENT:REVIEW SI;COVID-19 VIRUS INFECTION BLE CELLULITIS. BACTEREMIA. PROTEUS UTI. 98.9 92 19 106/51 95% 2L NC NA 133 CA 7.3 AST 108 ALD 101 ALK PHOS 120 ALB 1.9 IS;VANCOMYCIN IV Q8 HRS PLAQUENIL PO Q12 HRS ZOSYN IV Q8 HRS MED SURG STATUS DCP;FROM [facility]
[2019-06-19] MEDS: Vancomycin 1.25gm/NS Premix IVPB SCH ×2 (13:09→20:45)
--- NOTE | 2019-06-19 17:00 | Infectious Diseases Prog Note ---
Assessment/Plan Assessment/Plan ASSESSMENT AND PLAN: 1. 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 Patient has history of hypertension. Treatment per primary care team including Dr. Jj. 3. Patient has history of weakness. 4. Psychiatric disease. 5. Obesity. 6. No known drug allergies. 7. Family history noncontributory. 8. Social history negative. 9. MAR was noted. 10. Case discussed with RN. 11. COVID-19 virus isolation. 12. Case discussed with Dr. Jj yesterday. 13. Past medical history includes obesity, hypertension, psychiatric disease, weakness. No history diabetes or cancer. 14. Continue treatment per primary consultants. Subjective Constitutional: Reports: fatigue, other - fevers resolved ; Denies: fever HEENT: Reports: congestion - less Respiratory: Reports: shortness of breath - less Cardiovascular: Denies: chest pain Gastrointestinal/Abdominal: Reports: other - no abdominal pain ; Denies: nausea , vomiting, diarrhea Genitourinary: Reports: other - no luna Neurologic: Denies: headache Psychiatric: Denies: depression Skin: Denies: rash Hematologic: Denies: bleeding Musculoskeletal: Denies: pain Allergies: Coded Allergies: No Known Allergies (Unverified , 08/31/18) Objective Vital Signs Last 24 Hour Vital Signs Date Time Temp Pulse Resp B/P (MAP) Pulse Ox O2 Delivery O2 Flow Rate FiO2 06/19/19 12:00 98.0 90 19 131/69 (89) 97 06/19/19 09:00 Nasal Cannula 3.5 06/19/19 08:00 97.9 92 19 129/52 (77) 96 06/19/19 07:43 95 Nasal Cannula 3.0 32 06/19/19 04:00 98.6 91 18 106/51 (69) 95 06/19/19 00:00 98.6 88 18 113/52 (72) 96 06/18/19 21:00 Nasal Cannula 3.5 06/18/19 20:00 98.9 101 18 130/64 (86) 95 Height (Feet): 5 Height (Inches): 6.00 Weight (Pounds): 170 General Appearance: no acute distress HEENT: normocephalic, atraumatic, anicteric, mucous membranes moist Respiratory/Chest: no accessory muscle use, crackles/rales, rhonchi - bilaterally Cardiovascular: normal rate, regular rhythm, no JVD Abdomen: normal bowel sounds, soft, non tender, no organomegaly, non distended Genitourinary: other - no luna - urine slt cloudy Extremities: no cyanosis Skin: no rash Neurologic/Psychiatric: last repairer helper II-XII grossly normal, 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 The heart size is upper limits of normal. Impression: Increased bilateral interstitial and focal groundglass opacities, likely pneumonia, over one day Microbiology Date/Time Source Procedure Growth Status 06/16/19 15:00 Blood Blood Culture - Preliminary NO GROWTH AFTER 48 HOURS Resulted 06/13/19 21:04 Nasal Nares MRSA Culture - Final NO METHICILLIN RESISTANT STAPH AUREUS... Complete 06/13/19 13:25 Urine,Clean Catch Urine Culture - Final Proteus Mirabilis Complete 06/13/19 21:04 Rectum VRE Culture - Final NO VANCOMYCIN RESISTANT ENTEROCOCCUS ... Complete Laboratory Tests Test 06/19/19 04:00 White Blood Count 8.6 K/UL (4.8-10.8) Red Blood Count 3.59 M/UL (4.20-5.40) L Hemoglobin 11.6 G/DL (12.0-16.0) L Hematocrit 31.2 % (37.0-47.0) L Mean Corpuscular Volume 87 FL (80-99) Mean Corpuscular Hemoglobin 32.3 PG (27.0-31.0) H Mean Corpuscular Hemoglobin Concent 37.2 G/DL (32.0-36.0) H Red Cell Distribution Width 10.9 % (11.6-14.8) L Platelet Count 270 K/UL (150-450) Mean Platelet Volume 6.0 FL (6.5-10.1) L Neutrophils (%) (Auto) 68.1 % (45.0-75.0) Lymphocytes (%) (Auto) 24.3 % (20.0-45.0) Monocytes (%) (Auto) 6.4 % (1.0-10.0) Eosinophils (%) (Auto) 0.6 % (0.0-3.0) Basophils (%) (Auto) 0.7 % (0.0-2.0) Sodium Level 133 MMOL/L (136-145) L Potassium Level 4.3 MMOL/L (3.5-5.1) Chloride Level 100 MMOL/L (98-107) Carbon Dioxide Level 25 MMOL/L (21-32) Anion Gap 8 mmol/L (5-15) Blood Urea Nitrogen 7 mg/dL (7-18) Creatinine 0.5 MG/DL (0.55-1.30) L Estimat Glomerular Filtration Rate > 60 mL/min (>60) Glucose Level 97 MG/DL (74-106) Calcium Level 7.3 MG/DL (8.5-10.1) L Total Bilirubin 0.5 MG/DL (0.2-1.0) Aspartate Amino Transf (AST/SGOT) 108 U/L (15-37) H Alanine Aminotransferase (ALT/SGPT) 101 U/L (12-78) H Alkaline Phosphatase 120 U/L (46-116) H Total Creatine Kinase 120 U/L (26-308) Total Protein 5.8 G/DL (6.4-8.2) L Albumin 1.9 G/DL (3.4-5.0) L Globulin 3.9 g/dL Albumin/Globulin Ratio 0.5 (1.0-2.7) L Vancomycin Level Trough 10.1 ug/mL (5.0-12.0) Current Medications Medications (Trade) Dose Ordered Sig/Venkata Route PRN Reason Start Time Stop Time Status Last Admin Dose Admin Acetaminophen (Tylenol) 650 mg Q4H PRN ORAL Mild Pain (Pain Scale 1-3) 06/13/19 20:15 07/13/19 20:14 Acetaminophen (Tylenol) 650 mg Q4H PRN ORAL Temp >100.5 06/13/19 20:15 07/13/19 20:14 Dextrose (Dextrose 50%) 25 ml Q30M PRN IV Hypoglycemia 06/13/19 20:15 09/11/19 20:14 Dextrose (Dextrose 50%) 50 ml Q30M PRN IV Hypoglycemia 06/13/19 20:15 09/11/19 20:14 Heparin Sodium (Porcine) (Heparin 5000 units/ml) 5,000 units EVERY 12 HOURS SUBQ 06/13/19 21:00 07/28/19 20:59 06/19/19 08:51 Hydroxychloroquine Sulfate (Plaquenil) 200 mg Q12HR ORAL 06/18/19 21:00 06/22/19 09:01 06/19/19 08:43 Ondansetron HCl (Zofran) 4 mg Q6H PRN IVP Nausea & Vomiting 06/13/19 20:15 07/13/19 20:14 Piperacillin Sod/ Tazobactam Sod 3.375 gm/Sodium Chloride 110 ml @ 27.5 mls/hr EVERY 8 HOURS IVPB 06/16/19 14:00 06/21/19 13:59 06/19/19 13:09 Polyethylene Glycol (Miralax) 17 gm HSPRN PRN ORAL Constipation 06/13/19 20:15 07/13/19 20:14 Quetiapine Fumarate (SEROqueL) 100 mg DAILY ORAL 06/14/19 09:00 07/29/19 08:59 06/19/19 08:43 Quetiapine Fumarate (SEROqueL) 250 mg BEDTIME ORAL 06/13/19 21:00 07/28/19 20:59 06/18/19 21:42 Vancomycin HCl (Vanco rx to dose) 1 ea DAILY PRN MISC Per rx protocol 06/13/19 20:15 07/13/19 20:14 Vancomycin/Sodium Chloride 275 ml @ 183.333 mls/hr Q8H IVPB 06/19/19 13:00 06/24/19 12:59 06/19/19 13:09 Jeremy Mariano MD June 19, 2019 17:00
--- NOTE | 2019-06-19 19:33 | NUR ---
HAND-OFF: Report given to Jaydon GREGORIO.
--- NOTE | 2019-06-19 20:20 | NUR ---
NURSE NOTES: Patient in bed, confused, alert to name. Respiration is even and on 2.5 L nasal cannula. No complaint of pain or discomfort noted. Abdomen is soft and non distended. Iv site noted. Noted with sacral and buttock dressing. Bed in low and locked position. provided safe environment. Call light is at bedside. Will continue plan of care.
[2019-06-20 04:00] VITALS: BP 131/91
[2019-06-20 04:17] LABS: BASOPHILS % (AUTO) 0.8 % (0.0-2.0); EOSINOPHILS % (AUTO) 1.1 % (0.0-3.0); HEMATOCRIT 33.1 % (37.0-47.0); HEMOGLOBIN 11.9 G/DL (12.0-16.0); LYMPHOCYTES % (AUTO) 15.1 % (20.0-45.0); MEAN CORPUSCULAR VOLUME 88 FL (80-99); MONOCYTES % (AUTO) 6.3 % (1.0-10.0); NEUTROPHILS % (AUTO) 76.8 % (45.0-75.0); PLATELET COUNT 312 K/UL (150-450); RED BLOOD COUNT 3.76 M/UL (4.20-5.40); RED CELL DISTRIBUTION WIDTH 11.2 % (11.6-14.8); WHITE BLOOD COUNT 11.4 K/UL (4.8-10.8)
[2019-06-20 04:21] LABS: ANION GAP 11 mmol/L (5-15); BLOOD UREA NITROGEN 8 mg/dL (7-18); CALCIUM 7.7 MG/DL (8.5-10.1); CARBON DIOXIDE 25 MMOL/L (21-32); CHLORIDE 100 MMOL/L (98-107); CREATININE 0.5 MG/DL (0.55-1.30); POTASSIUM 3.7 MMOL/L (3.5-5.1); SODIUM 136 MMOL/L (136-145)
[2019-06-20] MEDS: Vancomycin 1 GM in NS 275 ML IVPB SCH ×3 (05:40→20:20)
[2019-06-20] MEDS: Piperacillin/Tazobactam 3.375 GM in NS 110 ML IVPB SCH ×3 (05:42→21:48)
--- NOTE | 2019-06-20 07:11 | NUR ---
HAND-OFF: Report given to Kt Rizzo.
--- NOTE | 2019-06-20 07:13 | NUR ---
NURSE NOTES: Report received from Jaydon GREGORIO. Seen on rounds, AxOx2, CUCA at 3.5lpm, tolerating well. Afebrile, not in distress, no c/o pain. PIV on right hand and left forearm patent and intact. Dressing on buttocks and bilateral heels intact. Bed low and locked, siderails up x2, zone alarms on 1, call light placed within reach and instructed to use to call for assistance. Will continue to monitor and implement plan of care.
[2019-06-20 08:00] VITALS: BP 120/54
[2019-06-20] MEDS: Heparin 5000 units/ml inj SUBQ SCH ×2 (08:16→20:20)
[2019-06-20 12:00] VITALS: BP 125/69
[2019-06-20 16:00] VITALS: BP 116/72
--- NOTE | 2019-06-20 19:03 | General Progress Note ---
Assessment/Plan Problem List: (1) Hypokalemia ICD Codes: E87.6 - Hypokalemia SNOMED: 94062907 (2) Hypertension, benign ICD Codes: I10 - Essential (primary) hypertension SNOMED: 36001462 (3) Urinary tract infection due to Proteus ICD Codes: N39.0 - Urinary tract infection, site not specified; B96.4 - Proteus (mirabilis) (morganii) as the cause of diseases classified elsewhere SNOMED: 242454853 (4) Episode of generalized weakness ICD Codes: R53.1 - Weakness SNOMED: 00881163 (5) Cellulitis of both lower extremities ICD Codes: L03.115 - Cellulitis of right lower limb; L03.116 - Cellulitis of left lower limb SNOMED: 189832873 (6) Bacteremia ICD Codes: R78.81 - Bacteremia SNOMED: 7298881 (7) Dysphagia ICD Codes: R13.10 - Dysphagia, unspecified SNOMED: 03498997, 709593135 (8) COVID-19 virus detected ICD Codes: U07.1 - COVID-19 SNOMED: 778276802, 524206519 Assessment/Plan: proteus uti, bc bacteroides and G+ cocci, not toxic, wound care, vanco, zosyn covid positive, ST swallow eval try stopping iv fluids Subjective Constitutional: Reports: weakness HEENT: Reports: no symptoms Cardiovascular: Reports: no symptoms Respiratory: Reports: SOB with excertion Gastrointestinal/Abdominal: Reports: poor appetite Genitourinary: Reports: incontinence Neurologic/Psychiatric: Reports: no symptoms Endocrine: Reports: no symptoms Hematologic/Lymphatic: Reports: no symptoms Allergies: Coded Allergies: No Known Allergies (Unverified , 08/31/18) Objective Last 24 Hour Vital Signs Date Time Temp Pulse Resp B/P (MAP) Pulse Ox O2 Delivery O2 Flow Rate FiO2 06/20/19 16:00 97.8 81 19 116/72 (87) 96 06/20/19 12:00 98.6 89 18 125/69 (87) 96 06/20/19 09:00 Nasal Cannula 3.0 06/20/19 08:00 98.2 100 18 120/54 (76) 95 06/20/19 04:00 98.9 96 18 131/91 (104) 95 06/20/19 00:31 94 Nasal Cannula 3.0 32 06/19/19 23:21 98.9 88 18 104/54 (71) 94 06/19/19 21:00 Nasal Cannula 3.0 06/19/19 20:00 99.6 99 18 117/92 (100) 94 Intake and Output 06/19/19 06/20/19 19:00 07:00 Intake Total 885.0 ml 385.000 ml Output Total 400 ml 300 ml Balance 485.0 ml 85.000 ml Intake Oral 200 ml IV Total 685.0 ml 385.000 ml Output Urine Total 400 ml 300 ml # Voids 1 # Bowel Movements 1 Laboratory Tests 06/20/19 04:00: White Blood Count 11.4H, Red Blood Count 3.76L, Hemoglobin 11.9L, Hematocrit 33.1L, Mean Corpuscular Volume 88, Mean Corpuscular Hemoglobin 31.6H, Mean Corpuscular Hemoglobin Concent 35.9, Red Cell Distribution Width 11.2L, Platelet Count 312, Mean Platelet Volume 5.8L, Neutrophils (%) (Auto) 76.8H, Lymphocytes (%) (Auto) 15.1L, Monocytes (%) (Auto) 6.3, Eosinophils (%) (Auto) 1.1, Basophils (%) (Auto) 0.8, Sodium Level 136, Potassium Level 3.7, Chloride Level 100, Carbon Dioxide Level 25, Anion Gap 11, Blood Urea Nitrogen 8, Creatinine 0.5L, Estimat Glomerular Filtration Rate > 60, Glucose Level 90, Calcium Level 7.7L, Vancomycin Level Trough 21.5H Height (Feet): 5 Height (Inches): 6.00 Weight (Pounds): 170 General Appearance: no apparent distress EENT: normal ENT inspection Neck: normal alignment Cardiovascular: normal rate Respiratory/Chest: normal breath sounds Abdomen: no organomegaly Edema: trace edema 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
--- NOTE | 2019-06-20 19:22 | NUR ---
HAND-OFF: Report given to Kelleyu RN.
--- NOTE | 2019-06-20 19:35 | NUR ---
NURSE NOTES: Patient awake and verbally responsive, alert to self. Breathing unlabored on 3.5L O2 via NC. Denies pain or discomfort. IV noted on left wrist and right antecubital intact and patent running TKO. On P200 mattress. Purewick on for incontinence care. Bed placed at the lowest with HOB elevated. Bed alarm, brake, and siderails on for patient safety. Call light placed within reach. Will continue to monitor.
[2019-06-20 20:00] VITALS: BP 134/64
--- NOTE | 2019-06-20 20:52 | Consultation ---
History of Present Illness General Date patient seen: June 20, 2019 Chief Complaint: Generalized Weakness Present Illness Allergies: Coded Allergies: No Known Allergies (Unverified , 08/31/18) Medication History Scheduled Amlodipine Besylate* (Amlodipine Besylate*), 5 MG ORAL DAILY, (Reported) Quetiapine Fumarate* (Quetiapine Fumarate*), 100 MG ORAL DAILY, (Reported) Quetiapine Fumarate* (Seroquel*), 250 MG ORAL BEDTIME, (Reported) Zolpidem Tartrate* (Zolpidem Tartrate*), 5 MG ORAL BEDTIME, (Reported) Scheduled PRN Lorazepam* (Lorazepam*), 1 MG ORAL Q6HR PRN for For Anxiety, (Reported) Patient History Limited by: medical condition History Provided By: Medical Record, PMD Healthcare decision maker N Resuscitation status Advanced Directive on File Past Medical/Surgical History Past Medical/Surgical History: (1) Constipation (2) Pain, abdominal, nonspecific (3) Breast pain, left (4) Hypokalemia (5) Hypertension, benign (6) Episode of generalized weakness (7) Urinary tract infection due to Proteus (8) Cellulitis of both lower extremities (9) Bacteremia (10) COVID-19 virus detected (11) Dysphagia Review of Systems All Other Systems: negative except mentioned in HPI ROS Narrative cannot obtain given medical condition Physical Exam General Appearance: no apparent distress Lines, tubes and drains: peripheral HEENT: mucous membranes moist Neck: normal inspection Respiratory/Chest: decreased breath sounds Cardiovascular/Chest: regular rhythm Abdomen: soft, no organomegaly, no mass Extremities: inflammation, slow capillary refill Skin Exam: warm/dry Neurologic: alert, responsive Last 24 Hour Vital Signs Date Time Temp Pulse Resp B/P (MAP) Pulse Ox O2 Delivery O2 Flow Rate FiO2 06/20/19 16:00 97.8 81 19 116/72 (87) 96 06/20/19 12:00 98.6 89 18 125/69 (87) 96 06/20/19 09:00 Nasal Cannula 3.0 06/20/19 08:00 98.2 100 18 120/54 (76) 95 06/20/19 04:00 98.9 96 18 131/91 (104) 95 06/20/19 00:31 94 Nasal Cannula 3.0 32 06/19/19 23:21 98.9 88 18 104/54 (71) 94 06/19/19 21:00 Nasal Cannula 3.0 Intake and Output 06/19/19 06/20/19 19:00 07:00 Intake Total 885.0 ml 385.000 ml Output Total 400 ml 300 ml Balance 485.0 ml 85.000 ml Intake Oral 200 ml IV Total 685.0 ml 385.000 ml Output Urine Total 400 ml 300 ml # Voids 1 # Bowel Movements 1 Laboratory Tests Test 06/20/19 04:00 White Blood Count 11.4 K/UL (4.8-10.8) H Red Blood Count 3.76 M/UL (4.20-5.40) L Hemoglobin 11.9 G/DL (12.0-16.0) L Hematocrit 33.1 % (37.0-47.0) L Mean Corpuscular Volume 88 FL (80-99) Mean Corpuscular Hemoglobin 31.6 PG (27.0-31.0) H Mean Corpuscular Hemoglobin Concent 35.9 G/DL (32.0-36.0) Red Cell Distribution Width 11.2 % (11.6-14.8) L Platelet Count 312 K/UL (150-450) Mean Platelet Volume 5.8 FL (6.5-10.1) L Neutrophils (%) (Auto) 76.8 % (45.0-75.0) H Lymphocytes (%) (Auto) 15.1 % (20.0-45.0) L Monocytes (%) (Auto) 6.3 % (1.0-10.0) Eosinophils (%) (Auto) 1.1 % (0.0-3.0) Basophils (%) (Auto) 0.8 % (0.0-2.0) Sodium Level 136 MMOL/L (136-145) Potassium Level 3.7 MMOL/L (3.5-5.1) Chloride Level 100 MMOL/L (98-107) Carbon Dioxide Level 25 MMOL/L (21-32) Anion Gap 11 mmol/L (5-15) Blood Urea Nitrogen 8 mg/dL (7-18) Creatinine 0.5 MG/DL (0.55-1.30) L Estimat Glomerular Filtration Rate > 60 mL/min (>60) Glucose Level 90 MG/DL (74-106) Calcium Level 7.7 MG/DL (8.5-10.1) L Vancomycin Level Trough 21.5 ug/mL (5.0-12.0) H Height (Feet): 5 Height (Inches): 6.00 Weight (Pounds): 170 Medications Current Medications Medications (Trade) Dose Ordered Sig/Venkata Route PRN Reason Start Time Stop Time Status Last Admin Dose Admin Acetaminophen (Tylenol) 650 mg Q4H PRN ORAL Mild Pain (Pain Scale 1-3) 06/13/19 20:15 07/13/19 20:14 Acetaminophen (Tylenol) 650 mg Q4H PRN ORAL Temp >100.5 06/13/19 20:15 07/13/19 20:14 Dextrose (Dextrose 50%) 25 ml Q30M PRN IV Hypoglycemia 06/13/19 20:15 09/11/19 20:14 Dextrose (Dextrose 50%) 50 ml Q30M PRN IV Hypoglycemia 06/13/19 20:15 09/11/19 20:14 Heparin Sodium (Porcine) (Heparin 5000 units/ml) 5,000 units EVERY 12 HOURS SUBQ 06/13/19 21:00 07/28/19 20:59 06/20/19 20:20 Hydroxychloroquine Sulfate (Plaquenil) 200 mg Q12HR ORAL 06/18/19 21:00 06/22/19 09:01 06/20/19 20:19 Ondansetron HCl (Zofran) 4 mg Q6H PRN IVP Nausea & Vomiting 06/13/19 20:15 07/13/19 20:14 Piperacillin Sod/ Tazobactam Sod 3.375 gm/Sodium Chloride 110 ml @ 27.5 mls/hr EVERY 8 HOURS IVPB 06/19/19 22:00 06/24/19 21:59 06/20/19 13:34 Polyethylene Glycol (Miralax) 17 gm HSPRN PRN ORAL Constipation 06/13/19 20:15 07/13/19 20:14 Quetiapine Fumarate (SEROqueL) 100 mg DAILY ORAL 06/14/19 09:00 07/29/19 08:59 06/20/19 08:08 Quetiapine Fumarate (SEROqueL) 250 mg BEDTIME ORAL 06/13/19 21:00 07/28/19 20:59 06/20/19 20:19 Vancomycin HCl (Vanco rx to dose) 1 ea DAILY PRN MISC Per rx protocol 06/13/19 20:15 07/13/19 20:14 Vancomycin HCl 1 gm/Sodium Chloride 275 ml @ 183.708 mls/hr Q8H IVPB 06/20/19 05:00 06/25/19 04:59 06/20/19 20:20 Assessment/Plan Problem List: (1) Cellulitis of both lower extremities Assessment & Plan: Pt presented on admission with two elongated and crescent shaped DTPI which inviolves both R and L lower gluteal cheeks and both upper thighs. DTPI R gluteus is purple with maroon borders, small opening that is vivian noted at Lower/outer R buttocks. Wound is (L)3cm x (W)19.5cm. Wound curves from outer lower gluteal cheek along upper thigh, laterally to medially. DTPI L lower gluteal cheek is purple, indurated with maroon borders, small opening noted to to lower /outer L gluteal john, Base of wound is vivian with small amt sanguineous exudate. Marginal erythema noted periwound. Wound also curves from L gluteal cheek to upper L thigh laterally to medially .(L)3cm x (W) 21cm. [place] shaped non-blanching erythema without induration noted to upper/outer R buttocks and upper /outer L buttocks. Both heels are boggy with non-blanching erythema. Tx.Plan: Apply Moisture Barrier Paste to wounds R and L buttocks and posterior /upper R and L thighs. Cover wounds with Optifoam drsgs. Change every 3 days and prn. Apply Cavilon Skin Barrier to both heels. Cover each heel with Optifoam drsg. Change every 7 days and prn Reposition at least every 2hours or as tolerated. Off-load heels with Pillow. APM/CHAYA MATTRESS overlay ICD Codes: L03.115 - Cellulitis of right lower limb; L03.116 - Cellulitis of left lower limb SNOMED: 389348147 (2) Pain, abdominal, nonspecific Assessment & Plan: resolving tolerating no complaints Gallbladder is unremarkable, without stones, wall thickening, nor pericholecystic fluid. Sonographic Potts's sign is negative. Common bile duct measures 2 mm in diameter. No intrahepatic biliary ductal dilatation. Liver demonstrates increased and coarsened echogenicity, no focal abnormality. Portal vein and hepatic veins are patent. Pancreas is unremarkable. Spleen is unremarkable. Left kidney measures 12.6 cm in length. Right kidney measures 12.7 cm length. Both kidneys demonstrate normal echogenicity. There is no hydronephrosis. No focal abnormality . Non-aneurysmal abdominal aorta . Trace free fluid is seen adjacent to the right hepatic lobe Impression: Liver demonstrates increased echogenicity, compatible with hepatocellular disease, most likely fatty change but other etiologies possible. Negative for gallstones or dilated bile ducts Trace free intraperitoneal fluid ICD Codes: R10.9 - Unspecified abdominal pain SNOMED: 787434711 (3) COVID-19 virus detected ICD Codes: U07.1 - COVID-19 SNOMED: 297686887, 114172086 Ventura Avitia June 20, 2019 20:52
[2019-06-21] VITALS: BP 141/64
--- NOTE | 2019-06-21 03:38 | NUR ---
NURSE NOTES: collected blood specimen for routine labs and vancomycin trough. sent down to lab.
[2019-06-21 03:54] LABS: BASOPHILS % (AUTO) 0.6 % (0.0-2.0); EOSINOPHILS % (AUTO) 0.9 % (0.0-3.0); HEMATOCRIT 31.6 % (37.0-47.0); HEMOGLOBIN 11.4 G/DL (12.0-16.0); LYMPHOCYTES % (AUTO) 8.1 % (20.0-45.0); MEAN CORPUSCULAR VOLUME 88 FL (80-99); MONOCYTES % (AUTO) 9.4 % (1.0-10.0); PLATELET COUNT 360 K/UL (150-450); RED CELL DISTRIBUTION WIDTH 11.4 % (11.6-14.8); WHITE BLOOD COUNT 15.8 K/UL (4.8-10.8)
[2019-06-21 04:00] VITALS: BP 133/51
[2019-06-21 04:22] LABS: ALANINE AMINOTRANSFERASE 86 U/L (12-78); ALBUMIN 1.9 G/DL (3.4-5.0); ALBUMIN/GLOBULIN RATIO 0.5 (1.0-2.7); ALKALINE PHOSPHATASE 141 U/L (46-116); ANION GAP 11 mmol/L (5-15); ASPARTATE AMINO TRANSFERASE 61 U/L (15-37); BILIRUBIN,TOTAL 0.6 MG/DL (0.2-1.0); BLOOD UREA NITROGEN 9 mg/dL (7-18); CALCIUM 7.8 MG/DL (8.5-10.1); CARBON DIOXIDE 26 MMOL/L (21-32); CHLORIDE 102 MMOL/L (98-107); CREATININE 0.7 MG/DL (0.55-1.30); POTASSIUM 3.2 MMOL/L (3.5-5.1); SODIUM 139 MMOL/L (136-145)
[2019-06-21] MEDS: Vancomycin 1 GM in NS 275 ML IVPB SCH ×3 (04:53→21:30)
--- NOTE | 2019-06-21 05:24 | NUR ---
NURSE NOTES: Informed Dr. Avitia regarding patient's potassium level. Awaiting for any new orders to follow up.
[2019-06-21] MEDS: Piperacillin/Tazobactam 3.375 GM in NS 110 ML IVPB SCH ×3 (05:32→22:58)
--- NOTE | 2019-06-21 07:24 | NUR ---
NURSE NOTES: Dr. Avitia ordered 40 meq kcl po one time for low potassium level. Order read back and confirmed.
--- NOTE | 2019-06-21 07:27 | NUR ---
HAND-OFF: Report given to DARLINE Pickering. Plan of care endorsed. Informed about the potassium level and supplement prescribed. Round made with the RN. Patient in stable condition.
[2019-06-21 08:00] VITALS: BP 102/76
--- NOTE | 2019-06-21 08:00 | NUR ---
NURSE NOTES: received patient in bed, on 3.5L/min oxygen no respiratory distress noted. Call light within easy reach, siderails up x3, bed locked at the lowest position possible. LFA and RAC IV access, TKO for IV antibiotic. On P200 mattress. Will continue to monitor patient and follow up with the plan of care.
[2019-06-21] MEDS: Heparin 5000 units/ml inj SUBQ SCH ×2 (09:06→21:29)
[2019-06-21 12:00] VITALS: BP 109/71
[2019-06-21 16:00] VITALS: BP 118/89
--- NOTE | 2019-06-21 16:58 | Infectious Diseases Prog Note ---
Assessment/Plan Assessment/Plan ASSESSMENT AND PLAN: 1. 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 septic - zosyn and vancomycin - day # 6 - hydroxychloroquine - day # 5/5 - monitor labs and chest x-ray - reculture patient for ? sepsis and leukocytosis - fevers better - please see orders - d/w RN 2. Patient has history of hypertension. Treatment per primary care team including Dr. Jj. 3. Patient has history of weakness. 4. Psychiatric disease. 5. Obesity. 6. No known drug allergies. 7. Family history noncontributory. 8. Social history negative. 9. MAR was noted. 10. Case discussed with RN. 11. COVID-19 virus isolation. 12. Case discussed with Dr. Jj yesterday. 13. Past medical history includes obesity, hypertension, psychiatric disease, weakness. No history diabetes or cancer. 14. Continue treatment per primary consultants. Subjective Constitutional: Reports: fatigue, other - alert ; Denies: fever HEENT: Reports: congestion - less Respiratory: Reports: shortness of breath - less Cardiovascular: Denies: chest pain Gastrointestinal/Abdominal: Denies: nausea, vomiting, diarrhea Genitourinary: Reports: other - no luna Neurologic: Denies: headache Psychiatric: Reports: other - NA Skin: Denies: rash Hematologic: Denies: bleeding Musculoskeletal: Denies: pain Allergies: Coded Allergies: No Known Allergies (Unverified , 08/31/18) Objective Vital Signs Last 24 Hour Vital Signs Date Time Temp Pulse Resp B/P (MAP) Pulse Ox O2 Delivery O2 Flow Rate FiO2 06/21/19 16:00 98.4 76 18 118/89 (99) 96 06/21/19 12:00 98.1 87 18 109/71 (84) 96 06/21/19 09:00 Nasal Cannula 3.0 06/21/19 08:00 98.8 107 19 102/76 (85) 94 06/21/19 04:00 98.4 100 22 133/51 (78) 95 06/21/19 00:33 90 20 97 06/21/19 00:00 97.7 102 20 141/64 (89) 94 06/20/19 21:00 Nasal Cannula 3.0 06/20/19 20:19 96 Nasal Cannula 3.0 32 06/20/19 20:00 97.7 105 20 134/64 (87) 94 Height (Feet): 5 Height (Inches): 6.00 Weight (Pounds): 170 General Appearance: no acute distress HEENT: normocephalic, atraumatic, anicteric, mucous membranes moist Respiratory/Chest: no respiratory distress, no accessory muscle use, crackles/ rales, rhonchi - bilaterally Cardiovascular: normal rate, no gallop/murmur, no JVD Abdomen: normal bowel sounds, soft, non tender, no organomegaly, non distended Genitourinary: other - no luna Extremities: no cyanosis Skin: no rash 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 The heart size is upper limits of normal. Impression: Increased bilateral interstitial and focal groundglass opacities, likely pneumonia, over one day Microbiology Date/Time Source Procedure Growth Status 06/16/19 15:00 Blood Blood Culture - Preliminary NO GROWTH AFTER 4 DAYS Resulted 06/13/19 21:04 Nasal Nares MRSA Culture - Final NO METHICILLIN RESISTANT STAPH AUREUS... Complete 06/13/19 13:25 Urine,Clean Catch Urine Culture - Final Proteus Mirabilis Complete 06/13/19 21:04 Rectum VRE Culture - Final NO VANCOMYCIN RESISTANT ENTEROCOCCUS ... Complete Laboratory Tests Test 06/21/19 03:35 White Blood Count 15.8 K/UL (4.8-10.8) H Red Blood Count 3.60 M/UL (4.20-5.40) L Hemoglobin 11.4 G/DL (12.0-16.0) L Hematocrit 31.6 % (37.0-47.0) L Mean Corpuscular Volume 88 FL (80-99) Mean Corpuscular Hemoglobin 31.7 PG (27.0-31.0) H Mean Corpuscular Hemoglobin Concent 36.1 G/DL (32.0-36.0) H Red Cell Distribution Width 11.4 % (11.6-14.8) L Platelet Count 360 K/UL (150-450) Mean Platelet Volume 6.0 FL (6.5-10.1) L Neutrophils (%) (Auto) 81.0 % (45.0-75.0) H Lymphocytes (%) (Auto) 8.1 % (20.0-45.0) L Monocytes (%) (Auto) 9.4 % (1.0-10.0) Eosinophils (%) (Auto) 0.9 % (0.0-3.0) Basophils (%) (Auto) 0.6 % (0.0-2.0) Erythrocyte Sedimentation Rate 108 MM/HR (0-30) H Sodium Level 139 MMOL/L (136-145) Potassium Level 3.2 MMOL/L (3.5-5.1) L Chloride Level 102 MMOL/L (98-107) Carbon Dioxide Level 26 MMOL/L (21-32) Anion Gap 11 mmol/L (5-15) Blood Urea Nitrogen 9 mg/dL (7-18) Creatinine 0.7 MG/DL (0.55-1.30) Estimat Glomerular Filtration Rate > 60 mL/min (>60) Glucose Level 96 MG/DL (74-106) Calcium Level 7.8 MG/DL (8.5-10.1) L Total Bilirubin 0.6 MG/DL (0.2-1.0) Aspartate Amino Transf (AST/SGOT) 61 U/L (15-37) H Alanine Aminotransferase (ALT/SGPT) 86 U/L (12-78) H Alkaline Phosphatase 141 U/L (46-116) H C-Reactive Protein, Quantitative 22.8 mg/dL (0.00-0.90) H Total Protein 6.1 G/DL (6.4-8.2) L Albumin 1.9 G/DL (3.4-5.0) L Globulin 4.2 g/dL Albumin/Globulin Ratio 0.5 (1.0-2.7) L Vancomycin Level Trough 16.7 ug/mL (5.0-12.0) H Current Medications Medications (Trade) Dose Ordered Sig/Venkata Route PRN Reason Start Time Stop Time Status Last Admin Dose Admin Acetaminophen (Tylenol) 650 mg Q4H PRN ORAL Mild Pain (Pain Scale 1-3) 5/2/20 20:15 07/13/19 20:14 Acetaminophen (Tylenol) 650 mg Q4H PRN ORAL Temp >100.5 06/13/19 20:15 07/13/19 20:14 Dextrose (Dextrose 50%) 25 ml Q30M PRN IV Hypoglycemia 06/13/19 20:15 09/11/19 20:14 Dextrose (Dextrose 50%) 50 ml Q30M PRN IV Hypoglycemia 06/13/19 20:15 09/11/19 20:14 Heparin Sodium (Porcine) (Heparin 5000 units/ml) 5,000 units EVERY 12 HOURS SUBQ 06/13/19 21:00 07/28/19 20:59 06/21/19 09:06 Hydroxychloroquine Sulfate (Plaquenil) 200 mg Q12HR ORAL 06/18/19 21:00 06/22/19 09:01 06/21/19 09:05 Ondansetron HCl (Zofran) 4 mg Q6H PRN IVP Nausea & Vomiting 06/13/19 20:15 07/13/19 20:14 Piperacillin Sod/ Tazobactam Sod 3.375 gm/Sodium Chloride 110 ml @ 27.5 mls/hr EVERY 8 HOURS IVPB 06/19/19 22:00 06/24/19 21:59 06/21/19 13:43 Polyethylene Glycol (Miralax) 17 gm HSPRN PRN ORAL Constipation 06/13/19 20:15 07/13/19 20:14 Quetiapine Fumarate (SEROqueL) 100 mg DAILY ORAL 06/14/19 09:00 07/29/19 08:59 06/21/19 09:05 Quetiapine Fumarate (SEROqueL) 250 mg BEDTIME ORAL 06/13/19 21:00 07/28/19 20:59 06/20/19 20:19 Vancomycin HCl (Vanco rx to dose) 1 ea DAILY PRN MISC Per rx protocol 06/13/19 20:15 07/13/19 20:14 Vancomycin HCl 1 gm/Sodium Chloride 275 ml @ 183.708 mls/hr Q8H IVPB 06/20/19 05:00 06/25/19 04:59 06/21/19 13:41 Jeremy Mariano MD June 21, 2019 16:57
--- NOTE | 2019-06-21 17:01 | Surgery Progress Note ---
Surgery Progress Note Objective Last 24 Hour Vital Signs Date Time Temp Pulse Resp B/P (MAP) Pulse Ox O2 Delivery O2 Flow Rate FiO2 06/21/19 16:00 98.4 76 18 118/89 (99) 96 06/21/19 12:00 98.1 87 18 109/71 (84) 96 06/21/19 09:00 Nasal Cannula 3.0 06/21/19 08:00 98.8 107 19 102/76 (85) 94 06/21/19 04:00 98.4 100 22 133/51 (78) 95 06/21/19 00:33 90 20 97 06/21/19 00:00 97.7 102 20 141/64 (89) 94 06/20/19 21:00 Nasal Cannula 3.0 06/20/19 20:19 96 Nasal Cannula 3.0 32 06/20/19 20:00 97.7 105 20 134/64 (87) 94 I&O Intake and Output 06/20/19 06/21/19 19:00 07:00 Intake Total 240 ml 1047.500 ml Output Total 200 ml Balance 240 ml 847.500 ml Intake Oral 240 ml 360 ml IV Total 687.500 ml Output Urine Total 200 ml # Voids 2 3 Laboratory Tests Test 06/21/19 03:35 White Blood Count 15.8 K/UL (4.8-10.8) H Red Blood Count 3.60 M/UL (4.20-5.40) L Hemoglobin 11.4 G/DL (12.0-16.0) L Hematocrit 31.6 % (37.0-47.0) L Mean Corpuscular Volume 88 FL (80-99) Mean Corpuscular Hemoglobin 31.7 PG (27.0-31.0) H Mean Corpuscular Hemoglobin Concent 36.1 G/DL (32.0-36.0) H Red Cell Distribution Width 11.4 % (11.6-14.8) L Platelet Count 360 K/UL (150-450) Mean Platelet Volume 6.0 FL (6.5-10.1) L Neutrophils (%) (Auto) 81.0 % (45.0-75.0) H Lymphocytes (%) (Auto) 8.1 % (20.0-45.0) L Monocytes (%) (Auto) 9.4 % (1.0-10.0) Eosinophils (%) (Auto) 0.9 % (0.0-3.0) Basophils (%) (Auto) 0.6 % (0.0-2.0) Erythrocyte Sedimentation Rate 108 MM/HR (0-30) H Sodium Level 139 MMOL/L (136-145) Potassium Level 3.2 MMOL/L (3.5-5.1) L Chloride Level 102 MMOL/L (98-107) Carbon Dioxide Level 26 MMOL/L (21-32) Anion Gap 11 mmol/L (5-15) Blood Urea Nitrogen 9 mg/dL (7-18) Creatinine 0.7 MG/DL (0.55-1.30) Estimat Glomerular Filtration Rate > 60 mL/min (>60) Glucose Level 96 MG/DL (74-106) Calcium Level 7.8 MG/DL (8.5-10.1) L Total Bilirubin 0.6 MG/DL (0.2-1.0) Aspartate Amino Transf (AST/SGOT) 61 U/L (15-37) H Alanine Aminotransferase (ALT/SGPT) 86 U/L (12-78) H Alkaline Phosphatase 141 U/L (46-116) H C-Reactive Protein, Quantitative 22.8 mg/dL (0.00-0.90) H Total Protein 6.1 G/DL (6.4-8.2) L Albumin 1.9 G/DL (3.4-5.0) L Globulin 4.2 g/dL Albumin/Globulin Ratio 0.5 (1.0-2.7) L Vancomycin Level Trough 16.7 ug/mL (5.0-12.0) H Plan Problems: (1) Cellulitis of both lower extremities Assessment & Plan: Pt presented on admission with two elongated and crescent shaped DTPI which inviolves both R and L lower gluteal cheeks and both upper thighs. DTPI R gluteus is purple with maroon borders, small opening that is vivian noted at Lower/outer R buttocks. Wound is (L)3cm x (W)19.5cm. Wound curves from outer lower gluteal cheek along upper thigh, laterally to medially. DTPI L lower gluteal cheek is purple, indurated with maroon borders, small opening noted to to lower /outer L gluteal john, Base of wound is vivian with small amt sanguineous exudate. Marginal erythema noted periwound. Wound also curves from L gluteal cheek to upper L thigh laterally to medially .(L)3cm x (W) 21cm. [place] shaped non-blanching erythema without induration noted to upper/outer R buttocks and upper /outer L buttocks. Both heels are boggy with non-blanching erythema. leukocytosis crp / esr elevated on abx cont abx Tx.Plan: Apply Moisture Barrier Paste to wounds R and L buttocks and posterior /upper R and L thighs. Cover wounds with Optifoam drsgs. Change every 3 days and prn. Apply Cavilon Skin Barrier to both heels. Cover each heel with Optifoam drsg. Change every 7 days and prn Reposition at least every 2hours or as tolerated. Off-load heels with Pillow. APM/CHAYA MATTRESS overlay (2) Pain, abdominal, nonspecific Assessment & Plan: resolving tolerating no complaints Gallbladder is unremarkable, without stones, wall thickening, nor pericholecystic fluid. Sonographic Potts's sign is negative. Common bile duct measures 2 mm in diameter. No intrahepatic biliary ductal dilatation. Liver demonstrates increased and coarsened echogenicity, no focal abnormality. Portal vein and hepatic veins are patent. Pancreas is unremarkable. Spleen is unremarkable. Left kidney measures 12.6 cm in length. Right kidney measures 12.7 cm length. Both kidneys demonstrate normal echogenicity. There is no hydronephrosis. No focal abnormality . Non-aneurysmal abdominal aorta . Trace free fluid is seen adjacent to the right hepatic lobe Impression: Liver demonstrates increased echogenicity, compatible with hepatocellular disease, most likely fatty change but other etiologies possible. Negative for gallstones or dilated bile ducts Trace free intraperitoneal fluid (3) COVID-19 virus detected (4) Abnormal LFTs Assessment & Plan: elevated lft's US Gallbladder is unremarkable, without stones, wall thickening, nor pericholecystic fluid. Sonographic Potts's sign is negative. Common bile duct measures 2 mm in diameter. No intrahepatic biliary ductal dilatation. Liver demonstrates increased and coarsened echogenicity, no focal abnormality. Portal vein and hepatic veins are patent. Pancreas is unremarkable. Spleen is unremarkable. Left kidney measures 12.6 cm in length. Right kidney measures 12.7 cm length. Both kidneys demonstrate normal echogenicity. There is no hydronephrosis. No focal abnormality . Non-aneurysmal abdominal aorta . Trace free fluid is seen adjacent to the right hepatic lobe Impression: Liver demonstrates increased echogenicity, compatible with hepatocellular disease, most likely fatty change but other etiologies possible. Negative for gallstones or dilated bile ducts Trace free intraperitoneal fluid Ventura Avitia June 21, 2019 17:01
--- NOTE | 2019-06-21 18:39 | General Progress Note ---
Assessment/Plan Problem List: (1) Hypokalemia ICD Codes: E87.6 - Hypokalemia SNOMED: 22096245 (2) Hypertension, benign ICD Codes: I10 - Essential (primary) hypertension SNOMED: 02164282 (3) Urinary tract infection due to Proteus ICD Codes: N39.0 - Urinary tract infection, site not specified; B96.4 - Proteus (mirabilis) (morganii) as the cause of diseases classified elsewhere SNOMED: 957893889 (4) Episode of generalized weakness ICD Codes: R53.1 - Weakness SNOMED: 03396156 (5) Cellulitis of both lower extremities ICD Codes: L03.115 - Cellulitis of right lower limb; L03.116 - Cellulitis of left lower limb SNOMED: 106328973 (6) Bacteremia ICD Codes: R78.81 - Bacteremia SNOMED: 7847647 (7) Dysphagia ICD Codes: R13.10 - Dysphagia, unspecified SNOMED: 53757318, 973225144 (8) COVID-19 virus detected ICD Codes: U07.1 - COVID-19 SNOMED: 608508810, 360418971 Assessment/Plan: proteus uti, bc bacteroides and G+ cocci, not toxic, wound care, vanco, zosyn covid positive, ST swallow eval try stopping iv fluids Subjective Constitutional: Reports: weakness HEENT: Reports: no symptoms Cardiovascular: Reports: no symptoms Gastrointestinal/Abdominal: Reports: no symptoms, poor appetite Genitourinary: Reports: no symptoms Neurologic/Psychiatric: Reports: no symptoms Endocrine: Reports: no symptoms Allergies: Coded Allergies: No Known Allergies (Unverified , 08/31/18) Objective Last 24 Hour Vital Signs Date Time Temp Pulse Resp B/P (MAP) Pulse Ox O2 Delivery O2 Flow Rate FiO2 06/21/19 16:00 98.4 76 18 118/89 (99) 96 06/21/19 12:00 98.1 87 18 109/71 (84) 96 06/21/19 09:00 Nasal Cannula 3.0 06/21/19 08:00 98.8 107 19 102/76 (85) 94 06/21/19 04:00 98.4 100 22 133/51 (78) 95 06/21/19 00:33 90 20 97 06/21/19 00:00 97.7 102 20 141/64 (89) 94 06/20/19 21:00 Nasal Cannula 3.0 06/20/19 20:19 96 Nasal Cannula 3.0 32 06/20/19 20:00 97.7 105 20 134/64 (87) 94 Intake and Output 06/20/19 06/21/19 19:00 07:00 Intake Total 240 ml 1047.500 ml Output Total 200 ml Balance 240 ml 847.500 ml Intake Oral 240 ml 360 ml IV Total 687.500 ml Output Urine Total 200 ml # Voids 2 3 Laboratory Tests 06/21/19 03:35: White Blood Count 15.8H, Red Blood Count 3.60L, Hemoglobin 11.4L, Hematocrit 31.6L, Mean Corpuscular Volume 88, Mean Corpuscular Hemoglobin 31.7H, Mean Corpuscular Hemoglobin Concent 36.1H, Red Cell Distribution Width 11.4L, Platelet Count 360, Mean Platelet Volume 6.0L, Neutrophils (%) (Auto) 81.0H, Lymphocytes (%) (Auto) 8.1L, Monocytes (%) (Auto) 9.4, Eosinophils (%) (Auto) 0.9, Basophils (%) (Auto) 0.6, Erythrocyte Sedimentation Rate 108H, Sodium Level 139, Potassium Level 3.2L, Chloride Level 102, Carbon Dioxide Level 26, Anion Gap 11, Blood Urea Nitrogen 9, Creatinine 0.7, Estimat Glomerular Filtration Rate > 60, Glucose Level 96, Calcium Level 7.8L, Total Bilirubin 0.6 , Aspartate Amino Transf (AST/SGOT) 61H, Alanine Aminotransferase (ALT/SGPT) 86H , Alkaline Phosphatase 141H, C-Reactive Protein, Quantitative 22.8H, Total Protein 6.1L, Albumin 1.9L, Globulin 4.2, Albumin/Globulin Ratio 0.5L, Vancomycin Level Trough 16.7H Height (Feet): 5 Height (Inches): 6.00 Weight (Pounds): 170 General Appearance: no apparent distress EENT: normal ENT inspection Neck: normal alignment Cardiovascular: normal rate Respiratory/Chest: lungs clear Abdomen: soft Edema: no edema noted Arm (L), no edema noted Arm (R), no edema noted Leg (L), no edema noted Leg (R), no edema noted Pedal (L), no edema noted Pedal (R), no edema noted Generalized Skin: other - healing cellulitis legs Dmitri Jj MD June 21, 2019 18:39
--- NOTE | 2019-06-21 19:53 | NUR ---
NURSE NOTES: Patient is in bed, awake and alert x1-2. On 3.5L O2 via nasal cannula with no signs of distress or SOB. IVs intact and patent. Purewick in place. Bed locked and in lowest position with HOB elevated. Bed alarm on. Call light within reach. Will continue to monitor.
--- NOTE | 2019-06-21 19:58 | NUR ---
HAND-OFF: Report given to DARLINE Wooten.
[2019-06-21 20:00] VITALS: BP 137/63
--- NOTE | 2019-06-21 22:09 | NUR ---
NURSE NOTES: Blood cultures x2 sent to lab.
[2019-06-21 23:16] LABS: APPEARANCE,URINE SLIGHTLY CLOUDY; BILIRUBIN, URINE NEGATIVE (NEGATIVE); COLOR,URINE PALE YELLOW; GLUCOSE, URINE (UA) NEGATIVE (NEGATIVE); KETONES,URINE 1+ (NEGATIVE); LEUKOCYTE ESTERASE ,URINE 3+ (NEGATIVE); NITRITE,URINE NEGATIVE (NEGATIVE); PH,URINE 6 (4.5-8.0); PROTEIN,URINE 2+ (NEGATIVE); UROBILINOGEN,URINE NORMAL MG/DL (0.0-1.0)
[2019-06-22] VITALS: BP 125/54
[2019-06-22 04:00] VITALS: BP 123/84
[2019-06-22] MEDS: Vancomycin 1 GM in NS 275 ML IVPB SCH ×2 (05:11→12:47)
[2019-06-22] MEDS: Piperacillin/Tazobactam 3.375 GM in NS 110 ML IVPB SCH ×3 (06:00→21:55)
[2019-06-22 06:32] LABS: BASOPHILS % (AUTO) 0.7 % (0.0-2.0); EOSINOPHILS % (AUTO) 1.8 % (0.0-3.0); HEMATOCRIT 31.5 % (37.0-47.0); HEMOGLOBIN 11.1 G/DL (12.0-16.0); LYMPHOCYTES % (AUTO) 8.8 % (20.0-45.0); MEAN CORPUSCULAR VOLUME 90 FL (80-99); NEUTROPHILS % (AUTO) 80.7 % (45.0-75.0); PLATELET COUNT 410 K/UL (150-450); RED CELL DISTRIBUTION WIDTH 11.5 % (11.6-14.8); WHITE BLOOD COUNT 16.2 K/UL (4.8-10.8)
[2019-06-22 07:05] LABS: ALANINE AMINOTRANSFERASE 83 U/L (12-78); ALBUMIN 1.8 G/DL (3.4-5.0); ALBUMIN/GLOBULIN RATIO 0.4 (1.0-2.7); ALKALINE PHOSPHATASE 145 U/L (46-116); ANION GAP 10 mmol/L (5-15); ASPARTATE AMINO TRANSFERASE 60 U/L (15-37); BILIRUBIN,TOTAL 0.5 MG/DL (0.2-1.0); BLOOD UREA NITROGEN 13 mg/dL (7-18); CALCIUM 8.1 MG/DL (8.5-10.1); CARBON DIOXIDE 27 MMOL/L (21-32); CHLORIDE 108 MMOL/L (98-107); CREATININE 1.1 MG/DL (0.55-1.30); POTASSIUM 3.8 MMOL/L (3.5-5.1); SODIUM 145 MMOL/L (136-145)
--- NOTE | 2019-06-22 07:39 | NUR ---
HAND-OFF: Report given to DARLINE Arnold.
--- NOTE | 2019-06-22 07:53 | NUR ---
NURSE NOTES: Report received from Merna GREGORIO. Seen on rounds, AxOx2, CUCA at 3.5lpm, tolerating well. Afebrile, not in distress, no c/o pain. PIV on left forearm patent and intact. Dressing on buttocks and bilateral heels intact. Bed low and locked, siderails up x2, zone alarms on 1, call light placed within reach and instructed to use to call for assistance. Will continue to monitor and implement plan of care.
[2019-06-22 08:00] VITALS: BP 130/80
[2019-06-22] MEDS: Heparin 5000 units/ml inj SUBQ SCH ×2 (08:49→21:54)
--- NOTE | 2019-06-22 10:44 | Diagnostic Imaging Report ---
Indication: Shortness of breath Technique: One view of the chest Comparison: 06/18/2019 Findings: Bilateral interstitial and airspace infiltrates have increased slightly in the interim. The heart size is normal. Impression: Slightly increased bilateral infiltrates, over 4 days
[2019-06-22 12:00] VITALS: BP 123/80
--- NOTE | 2019-06-22 13:08 | Surgery Progress Note ---
Surgery Progress Note Subjective Additional Comments worsening leukocytosis lft's stable cxr noted cellulitis stable Objective Last 24 Hour Vital Signs Date Time Temp Pulse Resp B/P (MAP) Pulse Ox O2 Delivery O2 Flow Rate FiO2 06/22/19 12:00 98.8 97 18 123/80 (94) 98 06/22/19 09:00 Nasal Cannula 3.0 06/22/19 08:00 98.6 93 18 130/80 (97) 97 06/22/19 04:00 98.9 96 18 123/84 (97) 96 06/22/19 00:00 99.6 92 20 125/54 (77) 94 06/21/19 22:00 100.1 06/21/19 21:22 94 Nasal Cannula 3.0 32 06/21/19 20:11 Nasal Cannula 3.0 06/21/19 20:00 100.8 101 18 137/63 (87) 94 06/21/19 16:00 98.4 76 18 118/89 (99) 96 I&O Intake and Output 06/21/19 06/22/19 19:00 07:00 Intake Total 897.500 ml Balance 897.500 ml IV Total 497.500 ml Other 400 ml # Voids 2 Dressing: dry Wound: clean Cardiovascular: RSR Respiratory: decreased breath sounds, other - on 02 Abdomen: soft, non-tender, present bowel sounds Extremities: no tenderness, no cyanosis Laboratory Tests Test 06/21/19 23:05 06/22/19 06:00 Urine Color Pale yellow Urine Appearance Slightly cloudy Urine pH 6 (4.5-8.0) Urine Specific [place] 1.010 (1.005-1.035) Urine Protein 2+ (NEGATIVE) H Urine Glucose (UA) Negative (NEGATIVE) Urine Ketones 1+ (NEGATIVE) H Urine Blood 2+ (NEGATIVE) H Urine Nitrite Negative (NEGATIVE) Urine Bilirubin Negative (NEGATIVE) Urine Urobilinogen Normal MG/DL (0.0-1.0) Urine Leukocyte Esterase 3+ (NEGATIVE) H Urine RBC 5-10 /HPF (0 - 2) H Urine WBC 40-60 /HPF (0 - 2) H Urine Squamous Epithelial Cells Moderate /LPF (NONE/OCC) H Urine Bacteria Few /HPF (NONE) Urine Yeast Moderate /HPF (NONE) H White Blood Count 16.2 K/UL (4.8-10.8) H Red Blood Count 3.50 M/UL (4.20-5.40) L Hemoglobin 11.1 G/DL (12.0-16.0) L Hematocrit 31.5 % (37.0-47.0) L Mean Corpuscular Volume 90 FL (80-99) Mean Corpuscular Hemoglobin 31.8 PG (27.0-31.0) H Mean Corpuscular Hemoglobin Concent 35.4 G/DL (32.0-36.0) Red Cell Distribution Width 11.5 % (11.6-14.8) L Platelet Count 410 K/UL (150-450) Mean Platelet Volume 5.6 FL (6.5-10.1) L Neutrophils (%) (Auto) 80.7 % (45.0-75.0) H Lymphocytes (%) (Auto) 8.8 % (20.0-45.0) L Monocytes (%) (Auto) 8.0 % (1.0-10.0) Eosinophils (%) (Auto) 1.8 % (0.0-3.0) Basophils (%) (Auto) 0.7 % (0.0-2.0) Sodium Level 145 MMOL/L (136-145) Potassium Level 3.8 MMOL/L (3.5-5.1) Chloride Level 108 MMOL/L (98-107) H Carbon Dioxide Level 27 MMOL/L (21-32) Anion Gap 10 mmol/L (5-15) Blood Urea Nitrogen 13 mg/dL (7-18) Creatinine 1.1 MG/DL (0.55-1.30) # Estimat Glomerular Filtration Rate 48.0 mL/min (>60) Glucose Level 110 MG/DL (74-106) H Calcium Level 8.1 MG/DL (8.5-10.1) L Total Bilirubin 0.5 MG/DL (0.2-1.0) Aspartate Amino Transf (AST/SGOT) 60 U/L (15-37) H Alanine Aminotransferase (ALT/SGPT) 83 U/L (12-78) H Alkaline Phosphatase 145 U/L (46-116) H Total Protein 6.3 G/DL (6.4-8.2) L Albumin 1.8 G/DL (3.4-5.0) L Globulin 4.5 g/dL Albumin/Globulin Ratio 0.4 (1.0-2.7) L Vancomycin Level Trough 23.2 ug/mL (5.0-12.0) H Plan Problems: (1) Cellulitis of both lower extremities Assessment & Plan: Pt presented on admission with two elongated and crescent shaped DTPI which inviolves both R and L lower gluteal cheeks and both upper thighs. DTPI R gluteus is purple with maroon borders, small opening that is vivian noted at Lower/outer R buttocks. Wound is (L)3cm x (W)19.5cm. Wound curves from outer lower gluteal cheek along upper thigh, laterally to medially. DTPI L lower gluteal cheek is purple, indurated with maroon borders, small opening noted to to lower /outer L gluteal john, Base of wound is vivian with small amt sanguineous exudate. Marginal erythema noted periwound. Wound also curves from L gluteal cheek to upper L thigh laterally to medially .(L)3cm x (W) 21cm. [place] shaped non-blanching erythema without induration noted to upper/outer R buttocks and upper /outer L buttocks. Both heels are boggy with non-blanching erythema. leukocytosis crp / esr elevated on abx cont abx Tx.Plan: Apply Moisture Barrier Paste to wounds R and L buttocks and posterior /upper R and L thighs. Cover wounds with Optifoam drsgs. Change every 3 days and prn. Apply Cavilon Skin Barrier to both heels. Cover each heel with Optifoam drsg. Change every 7 days and prn Reposition at least every 2hours or as tolerated. Off-load heels with Pillow. APM/CHAYA MATTRESS overlay (2) Pain, abdominal, nonspecific Assessment & Plan: resolving tolerating no complaints Gallbladder is unremarkable, without stones, wall thickening, nor pericholecystic fluid. Sonographic Potts's sign is negative. Common bile duct measures 2 mm in diameter. No intrahepatic biliary ductal dilatation. Liver demonstrates increased and coarsened echogenicity, no focal abnormality. Portal vein and hepatic veins are patent. Pancreas is unremarkable. Spleen is unremarkable. Left kidney measures 12.6 cm in length. Right kidney measures 12.7 cm length. Both kidneys demonstrate normal echogenicity. There is no hydronephrosis. No focal abnormality . Non-aneurysmal abdominal aorta . Trace free fluid is seen adjacent to the right hepatic lobe Impression: Liver demonstrates increased echogenicity, compatible with hepatocellular disease, most likely fatty change but other etiologies possible. Negative for gallstones or dilated bile ducts Trace free intraperitoneal fluid (3) COVID-19 virus detected Assessment & Plan: Bilateral interstitial and airspace infiltrates have increased slightly in the interim. The heart size is normal. (4) Abnormal LFTs Assessment & Plan: elevated lft's US Gallbladder is unremarkable, without stones, wall thickening, nor pericholecystic fluid. Sonographic Potts's sign is negative. Common bile duct measures 2 mm in diameter. No intrahepatic biliary ductal dilatation. Liver demonstrates increased and coarsened echogenicity, no focal abnormality. Portal vein and hepatic veins are patent. Pancreas is unremarkable. Spleen is unremarkable. Left kidney measures 12.6 cm in length. Right kidney measures 12.7 cm length. Both kidneys demonstrate normal echogenicity. There is no hydronephrosis. No focal abnormality . Non-aneurysmal abdominal aorta . Trace free fluid is seen adjacent to the right hepatic lobe Impression: Liver demonstrates increased echogenicity, compatible with hepatocellular disease, most likely fatty change but other etiologies possible. Negative for gallstones or dilated bile ducts Trace free intraperitoneal fluid Ventura Avitia June 22, 2019 13:08
--- NOTE | 2019-06-22 15:15 | NUR ---
CASE MANAGEMENT:REVIEW SI;COVID-19 VIRUS INFECTION BLE CELLULITIS. BACTEREMIA. PROTEUS UTI. 100.8 97 20 125/54 94% 3L NC FIO2 @ 32% WBC 16.2 CA 8.1 AST 60 ALT 83 ALK PHOS 143 ALB 1.8 IS;VANCOMYCIN IV Q8 HRS ZOSYN IV Q8 HRS PLAQUENIL PO Q12 HRS HEPARIN SUBQ Q12 HRS MED SURG STATUS DCP;FROM [facility]
[2019-06-22 16:00] VITALS: BP 120/75
--- NOTE | 2019-06-22 19:26 | NUR ---
HAND-OFF: Report given to Criselda GREGORIO.
--- NOTE | 2019-06-22 19:30 | NUR ---
NURSE NOTES: Patient in bed, alert to name, signs and no complaint of pain at this time, no SOB noted. For Vanco trough at 8pm. Call light in reach. Safety measures rendered. Will continue plan of care.
[2019-06-22 20:00] VITALS: BP 153/95
--- NOTE | 2019-06-22 20:07 | General Progress Note ---
Assessment/Plan Problem List: (1) Hypokalemia ICD Codes: E87.6 - Hypokalemia SNOMED: 92362508 (2) Hypertension, benign ICD Codes: I10 - Essential (primary) hypertension SNOMED: 59142435 (3) Urinary tract infection due to Proteus ICD Codes: N39.0 - Urinary tract infection, site not specified; B96.4 - Proteus (mirabilis) (morganii) as the cause of diseases classified elsewhere SNOMED: 132778396 (4) Episode of generalized weakness ICD Codes: R53.1 - Weakness SNOMED: 83880336 (5) Cellulitis of both lower extremities ICD Codes: L03.115 - Cellulitis of right lower limb; L03.116 - Cellulitis of left lower limb SNOMED: 446751452 (6) Bacteremia ICD Codes: R78.81 - Bacteremia SNOMED: 0124231 (7) Dysphagia ICD Codes: R13.10 - Dysphagia, unspecified SNOMED: 17240623, 058417248 (8) COVID-19 virus detected ICD Codes: U07.1 - COVID-19 SNOMED: 024365602, 931436573 Assessment/Plan: proteus uti, bc bacteroides and G+ cocci, not toxic, wound care, vanco, zosyn covid positive, ST swallow eval try stopping iv fluids Subjective ROS Limited/Unobtainable: Yes Allergies: Coded Allergies: No Known Allergies (Unverified , 08/31/18) Objective Last 24 Hour Vital Signs Date Time Temp Pulse Resp B/P (MAP) Pulse Ox O2 Delivery O2 Flow Rate FiO2 06/22/19 16:00 98.6 98 18 120/75 (90) 98 06/22/19 12:00 98.8 97 18 123/80 (94) 98 06/22/19 09:00 Nasal Cannula 3.0 06/22/19 08:00 98.6 93 18 130/80 (97) 97 06/22/19 04:00 98.9 96 18 123/84 (97) 96 06/22/19 00:00 99.6 92 20 125/54 (77) 94 06/21/19 22:00 100.1 06/21/19 21:22 94 Nasal Cannula 3.0 32 06/21/19 20:11 Nasal Cannula 3.0 Intake and Output 06/21/19 06/22/19 19:00 07:00 Intake Total 897.500 ml Balance 897.500 ml IV Total 497.500 ml Other 400 ml # Voids 2 Laboratory Tests 06/21/19 23:05: Urine Color Pale yellow, Urine Appearance Slightly cloudy, Urine pH 6, Urine Specific [place] 1.010, Urine Protein 2+H, Urine Glucose (UA) Negative, Urine Ketones 1+H, Urine Blood 2+H, Urine Nitrite Negative, Urine Bilirubin Negative, Urine Urobilinogen Normal, Urine Leukocyte Esterase 3+H, Urine RBC 5-10H, Urine WBC 40-60H, Urine Squamous Epithelial Cells ModerateH, Urine Bacteria Few, Urine Yeast ModerateH 06/22/19 06:00: White Blood Count 16.2H, Red Blood Count 3.50L, Hemoglobin 11.1L, Hematocrit 31.5L, Mean Corpuscular Volume 90, Mean Corpuscular Hemoglobin 31.8H, Mean Corpuscular Hemoglobin Concent 35.4, Red Cell Distribution Width 11.5L, Platelet Count 410, Mean Platelet Volume 5.6L, Neutrophils (%) (Auto) 80.7H, Lymphocytes (%) (Auto) 8.8L, Monocytes (%) (Auto) 8.0, Eosinophils (%) (Auto) 1.8, Basophils (%) (Auto) 0.7, Sodium Level 145, Potassium Level 3.8, Chloride Level 108H, Carbon Dioxide Level 27, Anion Gap 10, Blood Urea Nitrogen 13, Creatinine 1.1#, Estimat Glomerular Filtration Rate 48.0, Glucose Level 110H, Calcium Level 8.1L, Total Bilirubin 0.5, Aspartate Amino Transf (AST/SGOT) 60H, Alanine Aminotransferase (ALT/SGPT) 83H, Alkaline Phosphatase 145H, Total Protein 6.3L, Albumin 1.8L, Globulin 4.5, Albumin/Globulin Ratio 0.4L, Vancomycin Level Trough 23.2H Height (Feet): 5 Height (Inches): 6.00 Weight (Pounds): 170 General Appearance: no apparent distress EENT: normal ENT inspection Neck: normal alignment Cardiovascular: regular rhythm Respiratory/Chest: lungs clear Abdomen: soft Edema: no edema noted Arm (L), no edema noted Arm (R), no edema noted Leg (L), no edema noted Leg (R), no edema noted Pedal (L), no edema noted Pedal (R), no edema noted Generalized Neurologic: disoriented Dmitri Jj MD June 22, 2019 20:07
--- NOTE | 2019-06-22 20:15 | NUR ---
NURSE NOTES: Blood drawn and sent to the lab for Vanco trough.
[2019-06-23] VITALS: BP 138/63
[2019-06-23 04:00] VITALS: BP 144/70
[2019-06-23] MEDS: Piperacillin/Tazobactam 3.375 GM in NS 110 ML IVPB SCH ×3 (05:39→22:16)
--- NOTE | 2019-06-23 07:14 | NUR ---
HAND-OFF: Report given to DARLINE Hoover.
--- NOTE | 2019-06-23 07:15 | NUR ---
NURSE NOTES: Received patient on bed asleep. O2 via NC in place, no SOB or acute distress. IV line intact and patent. Wound dressings intact. HOB elevated. Bed locked in lowest position. Call light within reach. Will continue plan of care.
[2019-06-23 07:42] LABS: BASOPHILS % (AUTO) 0.5 % (0.0-2.0); EOSINOPHILS % (AUTO) 1.9 % (0.0-3.0); HEMATOCRIT 32.5 % (37.0-47.0); HEMOGLOBIN 11.4 G/DL (12.0-16.0); LYMPHOCYTES % (AUTO) 7.3 % (20.0-45.0); MEAN CORPUSCULAR VOLUME 91 FL (80-99); MONOCYTES % (AUTO) 9.2 % (1.0-10.0); NEUTROPHILS % (AUTO) 81.1 % (45.0-75.0); PLATELET COUNT 421 K/UL (150-450); RED BLOOD COUNT 3.57 M/UL (4.20-5.40); RED CELL DISTRIBUTION WIDTH 11.9 % (11.6-14.8); WHITE BLOOD COUNT 15.1 K/UL (4.8-10.8)
[2019-06-23 08:00] VITALS: BP 147/98
[2019-06-23] MEDS ORDERED: Vancomycin 1gm/D5W 275ml IVPB SCH ×2 (09:00)
[2019-06-23] MEDS: Heparin 5000 units/ml inj SUBQ SCH ×2 (09:14→22:01)
--- NOTE | 2019-06-23 10:08 | NUR ---
RD ASSESSMENT & RECOMMENDATIONS SEE CARE ACTIVITY FOR COMPLETE ASSESSMENT DAILY ESTIMATED NEEDS: Needs based on wound, 63.6kg adj 30-35 kcals/kg 6221-4261 total kcals 1.25-1.5 g protein/kg 80-95 g total protein 25-30 mL/kg 6373-6727 total fluid mLs NUTRITION DIAGNOSIS: * Swallowing difficulty r/t dysphagia as evidenced by [employer] ya, now on puree texture diet, 1:1 feeds, poor intake. * Increased kcal/prot intake needs R/T wound healing as evidenced by pt admitted w/ two elongated and crescent shaped DTPI which involves both R and L lower gluteal cheeks and both upper thighs, DTPI at R gluteus, L lower gluteal cheek, non-blanching erythema without induration noted to upper/outer R buttocks and upper /outer L buttocks, non-blanching erythema at BL heels. CURRENT DIET: Now Regular pureed moist w/ Ensure Enlive TID w/ meals PO DIET RECOMMENDATIONS: Regular diet/ Texture per [employer] ADDITIONAL RECOMMENDATIONS: 1) Continue Ensure Enlive TID 2) Recalibrate bed scale for accurate CBW 3) Wound care: add MVI x 1, Vit C 250mg QD John BID as tolerated 4) Consider appetite stimulant given consistently poor PO intake -> consider temporary nonoral feeding with continued poor PO
[2019-06-23 11:26] LABS: ALANINE AMINOTRANSFERASE 78 U/L (12-78); ALBUMIN 1.7 G/DL (3.4-5.0); ALBUMIN/GLOBULIN RATIO 0.4 (1.0-2.7); ALKALINE PHOSPHATASE 141 U/L (46-116); ANION GAP 10 mmol/L (5-15); ASPARTATE AMINO TRANSFERASE 52 U/L (15-37); BILIRUBIN,TOTAL 0.5 MG/DL (0.2-1.0); BLOOD UREA NITROGEN 27 mg/dL (7-18); CALCIUM 8.1 MG/DL (8.5-10.1); CARBON DIOXIDE 26 MMOL/L (21-32); CHLORIDE 108 MMOL/L (98-107); CREATININE 1.8 MG/DL (0.55-1.30); POTASSIUM 3.4 MMOL/L (3.5-5.1); SODIUM 144 MMOL/L (136-145)
--- NOTE | 2019-06-23 11:59 | Surgery Progress Note ---
Surgery Progress Note Subjective Additional Comments low grade fevers leukocytosis h/h stable renal function declined no n/v Objective Last 24 Hour Vital Signs Date Time Temp Pulse Resp B/P (MAP) Pulse Ox O2 Delivery O2 Flow Rate FiO2 06/23/19 08:00 98.0 102 19 147/98 (114) 95 06/23/19 04:00 99.0 94 20 144/70 (94) 95 06/23/19 00:00 98.4 104 20 138/63 (88) 96 06/22/19 21:00 Nasal Cannula 3.0 06/22/19 20:25 97 Nasal Cannula 3.0 32 06/22/19 20:00 99.5 99 20 153/95 (114) 94 06/22/19 16:00 98.6 98 18 120/75 (90) 98 06/22/19 12:00 98.8 97 18 123/80 (94) 98 I&O Intake and Output 06/22/19 06/23/19 19:00 07:00 Intake Total 725.0 ml 537.5 ml Balance 725.0 ml 537.5 ml Intake Oral 340 ml 400 ml IV Total 385.0 ml 137.5 ml # Voids 2 2 # Bowel Movements 1 Cardiovascular: RSR Respiratory: decreased breath sounds Abdomen: soft, non-tender, present bowel sounds Extremities: no cyanosis Laboratory Tests Test 06/22/19 19:55 06/23/19 06:00 06/23/19 10:10 Vancomycin Level Trough 28.9 ug/mL (5.0-12.0) H White Blood Count 15.1 K/UL (4.8-10.8) H Red Blood Count 3.57 M/UL (4.20-5.40) L Hemoglobin 11.4 G/DL (12.0-16.0) L Hematocrit 32.5 % (37.0-47.0) L Mean Corpuscular Volume 91 FL (80-99) Mean Corpuscular Hemoglobin 31.8 PG (27.0-31.0) H Mean Corpuscular Hemoglobin Concent 35.0 G/DL (32.0-36.0) Red Cell Distribution Width 11.9 % (11.6-14.8) Platelet Count 421 K/UL (150-450) Mean Platelet Volume 5.1 FL (6.5-10.1) L Neutrophils (%) (Auto) 81.1 % (45.0-75.0) H Lymphocytes (%) (Auto) 7.3 % (20.0-45.0) L Monocytes (%) (Auto) 9.2 % (1.0-10.0) Eosinophils (%) (Auto) 1.9 % (0.0-3.0) Basophils (%) (Auto) 0.5 % (0.0-2.0) Sodium Level 144 MMOL/L (136-145) Potassium Level 3.4 MMOL/L (3.5-5.1) L Chloride Level 108 MMOL/L (98-107) H Carbon Dioxide Level 26 MMOL/L (21-32) Anion Gap 10 mmol/L (5-15) Blood Urea Nitrogen 27 mg/dL (7-18) H Creatinine 1.8 MG/DL (0.55-1.30) #H Estimat Glomerular Filtration Rate 27.2 mL/min (>60) Glucose Level 173 MG/DL (74-106) H Calcium Level 8.1 MG/DL (8.5-10.1) L Total Bilirubin 0.5 MG/DL (0.2-1.0) Aspartate Amino Transf (AST/SGOT) 52 U/L (15-37) H Alanine Aminotransferase (ALT/SGPT) 78 U/L (12-78) Alkaline Phosphatase 141 U/L (46-116) H Total Protein 6.2 G/DL (6.4-8.2) L Albumin 1.7 G/DL (3.4-5.0) L Globulin 4.5 g/dL Albumin/Globulin Ratio 0.4 (1.0-2.7) L Plan Problems: (1) Cellulitis of both lower extremities Assessment & Plan: Pt presented on admission with two elongated and crescent shaped DTPI which inviolves both R and L lower gluteal cheeks and both upper thighs. DTPI R gluteus is purple with maroon borders, small opening that is vivian noted at Lower/outer R buttocks. Wound is (L)3cm x (W)19.5cm. Wound curves from outer lower gluteal cheek along upper thigh, laterally to medially. DTPI L lower gluteal cheek is purple, indurated with maroon borders, small opening noted to to lower /outer L gluteal john, Base of wound is vivian with small amt sanguineous exudate. Marginal erythema noted periwound. Wound also curves from L gluteal cheek to upper L thigh laterally to medially .(L)3cm x (W) 21cm. [place] shaped non-blanching erythema without induration noted to upper/outer R buttocks and upper /outer L buttocks. Both heels are boggy with non-blanching erythema. leukocytosis crp / esr elevated on abx cont abx Tx.Plan: Apply Moisture Barrier Paste to wounds R and L buttocks and posterior /upper R and L thighs. Cover wounds with Optifoam drsgs. Change every 3 days and prn. Apply Cavilon Skin Barrier to both heels. Cover each heel with Optifoam drsg. Change every 7 days and prn Reposition at least every 2hours or as tolerated. Off-load heels with Pillow. APM/CHAYA MATTRESS overlay (2) Pain, abdominal, nonspecific Assessment & Plan: resolving tolerating no complaints Gallbladder is unremarkable, without stones, wall thickening, nor pericholecystic fluid. Sonographic Potts's sign is negative. Common bile duct measures 2 mm in diameter. No intrahepatic biliary ductal dilatation. Liver demonstrates increased and coarsened echogenicity, no focal abnormality. Portal vein and hepatic veins are patent. Pancreas is unremarkable. Spleen is unremarkable. Left kidney measures 12.6 cm in length. Right kidney measures 12.7 cm length. Both kidneys demonstrate normal echogenicity. There is no hydronephrosis. No focal abnormality . Non-aneurysmal abdominal aorta . Trace free fluid is seen adjacent to the right hepatic lobe Impression: Liver demonstrates increased echogenicity, compatible with hepatocellular disease, most likely fatty change but other etiologies possible. Negative for gallstones or dilated bile ducts Trace free intraperitoneal fluid (3) COVID-19 virus detected Assessment & Plan: Bilateral interstitial and airspace infiltrates have increased slightly in the interim. The heart size is normal. (4) Abnormal LFTs Assessment & Plan: elevated lft's US Gallbladder is unremarkable, without stones, wall thickening, nor pericholecystic fluid. Sonographic Potts's sign is negative. Common bile duct measures 2 mm in diameter. No intrahepatic biliary ductal dilatation. Liver demonstrates increased and coarsened echogenicity, no focal abnormality. Portal vein and hepatic veins are patent. Pancreas is unremarkable. Spleen is unremarkable. Left kidney measures 12.6 cm in length. Right kidney measures 12.7 cm length. Both kidneys demonstrate normal echogenicity. There is no hydronephrosis. No focal abnormality . Non-aneurysmal abdominal aorta . Trace free fluid is seen adjacent to the right hepatic lobe Impression: Liver demonstrates increased echogenicity, compatible with hepatocellular disease, most likely fatty change but other etiologies possible. Negative for gallstones or dilated bile ducts Trace free intraperitoneal fluid Ventura Avitia June 23, 2019 11:59
[2019-06-23 12:00] VITALS: BP 139/86
[2019-06-23 16:00] VITALS: BP 131/72
--- NOTE | 2019-06-23 17:53 | Infectious Diseases Prog Note ---
Assessment/Plan Assessment/Plan ASSESSMENT AND PLAN: 1. 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 septic ARF - hold vancomycin - change antibiotics to zosyn and doxycycline - day # 8/ - s/p hydroxychloroquine - monitor labs and chest x-ray - surveillance cultures - negative - fevers better - please see orders - d/w RN 2. Patient has history of hypertension. Treatment per primary care team including Dr. Jj. 3. Patient has history of weakness. 4. Psychiatric disease. 5. Obesity. 6. No known drug allergies. 7. Family history noncontributory. 8. Social history negative. 9. MAR was noted. 10. Case discussed with RN. 11. COVID-19 virus isolation. 12. Case discussed with Dr. Jj yesterday. 13. Past medical history includes obesity, hypertension, psychiatric disease, weakness. No history diabetes or cancer. 14. Continue treatment per primary consultants. Subjective Constitutional: Denies: fever HEENT: Denies: congestion Respiratory: Denies: shortness of breath Cardiovascular: Denies: chest pain Gastrointestinal/Abdominal: Denies: nausea, vomiting, diarrhea Genitourinary: Reports: other - no luna Neurologic: Denies: headache Psychiatric: Denies: depression Skin: Denies: rash Hematologic: Denies: bleeding Musculoskeletal: Denies: pain Allergies: Coded Allergies: No Known Allergies (Unverified , 08/31/18) Objective Vital Signs Last 24 Hour Vital Signs Date Time Temp Pulse Resp B/P (MAP) Pulse Ox O2 Delivery O2 Flow Rate FiO2 06/23/19 16:00 97.8 71 18 131/72 (91) 97 06/23/19 12:00 97.9 98 19 139/86 (103) 94 06/23/19 09:00 Nasal Cannula 3.0 06/23/19 08:00 98.0 102 19 147/98 (114) 95 06/23/19 04:00 99.0 94 20 144/70 (94) 95 06/23/19 00:00 98.4 104 20 138/63 (88) 96 06/22/19 21:00 Nasal Cannula 3.0 06/22/19 20:25 97 Nasal Cannula 3.0 32 06/22/19 20:00 99.5 99 20 153/95 (114) 94 Height (Feet): 5 Height (Inches): 6.00 Weight (Pounds): 170 General Appearance: no acute distress HEENT: normocephalic, atraumatic, anicteric Respiratory/Chest: no respiratory distress, no accessory muscle use, crackles/ rales, rhonchi - bilaterally Cardiovascular: normal rate, regular rhythm, no gallop/murmur, no JVD Abdomen: normal bowel sounds, soft, non tender, no organomegaly, non distended Genitourinary: other - no luna Extremities: no cyanosis Skin: no rash 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 The heart size is upper limits of normal. Impression: Increased bilateral interstitial and focal groundglass opacities, likely pneumonia, over one day Chest x-ray - 06/22/19 - Procedure: XRAY Chest 1v Indication: Shortness of breath Technique: One view of the chest Comparison: 06/18/2019 Findings: Bilateral interstitial and airspace infiltrates have increased slightly in the interim. The heart size is normal. Impression: Slightly increased bilateral infiltrates, over 4 days Microbiology Date/Time Source Procedure Growth Status 06/21/19 22:05 Blood Blood Culture - Preliminary NO GROWTH AFTER 24 HOURS Resulted 06/21/19 22:00 Blood Blood Culture - Preliminary NO GROWTH AFTER 24 HOURS Resulted 06/21/19 23:05 Urine,Clean Catch Urine Culture - Preliminary Resulted Laboratory Tests Test 06/22/19 19:55 06/23/19 06:00 06/23/19 10:10 Vancomycin Level Trough 28.9 ug/mL (5.0-12.0) H White Blood Count 15.1 K/UL (4.8-10.8) H Red Blood Count 3.57 M/UL (4.20-5.40) L Hemoglobin 11.4 G/DL (12.0-16.0) L Hematocrit 32.5 % (37.0-47.0) L Mean Corpuscular Volume 91 FL (80-99) Mean Corpuscular Hemoglobin 31.8 PG (27.0-31.0) H Mean Corpuscular Hemoglobin Concent 35.0 G/DL (32.0-36.0) Red Cell Distribution Width 11.9 % (11.6-14.8) Platelet Count 421 K/UL (150-450) Mean Platelet Volume 5.1 FL (6.5-10.1) L Neutrophils (%) (Auto) 81.1 % (45.0-75.0) H Lymphocytes (%) (Auto) 7.3 % (20.0-45.0) L Monocytes (%) (Auto) 9.2 % (1.0-10.0) Eosinophils (%) (Auto) 1.9 % (0.0-3.0) Basophils (%) (Auto) 0.5 % (0.0-2.0) Sodium Level 144 MMOL/L (136-145) Potassium Level 3.4 MMOL/L (3.5-5.1) L Chloride Level 108 MMOL/L (98-107) H Carbon Dioxide Level 26 MMOL/L (21-32) Anion Gap 10 mmol/L (5-15) Blood Urea Nitrogen 27 mg/dL (7-18) H Creatinine 1.8 MG/DL (0.55-1.30) #H Estimat Glomerular Filtration Rate 27.2 mL/min (>60) Glucose Level 173 MG/DL (74-106) H Calcium Level 8.1 MG/DL (8.5-10.1) L Total Bilirubin 0.5 MG/DL (0.2-1.0) Aspartate Amino Transf (AST/SGOT) 52 U/L (15-37) H Alanine Aminotransferase (ALT/SGPT) 78 U/L (12-78) Alkaline Phosphatase 141 U/L (46-116) H Total Protein 6.2 G/DL (6.4-8.2) L Albumin 1.7 G/DL (3.4-5.0) L Globulin 4.5 g/dL Albumin/Globulin Ratio 0.4 (1.0-2.7) L Current Medications Medications (Trade) Dose Ordered Sig/Venkata Route PRN Reason Start Time Stop Time Status Last Admin Dose Admin Acetaminophen (Tylenol) 650 mg Q4H PRN ORAL Mild Pain (Pain Scale 1-3) 06/13/19 20:15 07/13/19 20:14 06/21/19 21:30 Acetaminophen (Tylenol) 650 mg Q4H PRN ORAL Temp >100.5 06/13/19 20:15 07/13/19 20:14 Dextrose (Dextrose 50%) 25 ml Q30M PRN IV Hypoglycemia 06/13/19 20:15 09/11/19 20:14 Dextrose (Dextrose 50%) 50 ml Q30M PRN IV Hypoglycemia 06/13/19 20:15 09/11/19 20:14 Heparin Sodium (Porcine) (Heparin 5000 units/ml) 5,000 units EVERY 12 HOURS SUBQ 06/13/19 21:00 07/28/19 20:59 06/23/19 09:14 Ondansetron HCl (Zofran) 4 mg Q6H PRN IVP Nausea & Vomiting 06/13/19 20:15 07/13/19 20:14 Piperacillin Sod/ Tazobactam Sod 3.375 gm/Sodium Chloride 110 ml @ 27.5 mls/hr EVERY 8 HOURS IVPB 06/19/19 22:00 06/24/19 21:59 06/23/19 14:13 Polyethylene Glycol (Miralax) 17 gm HSPRN PRN ORAL Constipation 06/13/19 20:15 07/13/19 20:14 Quetiapine Fumarate (SEROqueL) 100 mg DAILY ORAL 06/14/19 09:00 07/29/19 08:59 06/23/19 09:14 Quetiapine Fumarate (SEROqueL) 250 mg BEDTIME ORAL 06/13/19 21:00 07/28/19 20:59 06/22/19 21:53 Vancomycin HCl (Vanco rx to dose) 1 ea DAILY PRN MISC Per rx protocol 06/13/19 20:15 07/13/19 20:14 Vancomycin HCl 1 gm/Dextrose 275 ml @ 183.708 mls/hr Q24H IVPB 06/24/19 09:00 06/28/19 08:59 Jeremy Mariano MD June 23, 2019 17:53
--- NOTE | 2019-06-23 19:32 | NUR ---
HAND-OFF: Report given to Tex GREGORIO.
--- NOTE | 2019-06-23 19:33 | NUR ---
NURSE NOTES: Received patient in bed. A&OX1, confused. IV site patent and intact. NC 3.5L on. No s/s of respiratory distress noted. Bed in lowest position. Call light within reach. Will continue to monitor.
[2019-06-23 20:00] VITALS: BP 150/73
--- NOTE | 2019-06-23 20:34 | General Progress Note ---
Assessment/Plan Problem List: (1) Hypokalemia ICD Codes: E87.6 - Hypokalemia SNOMED: 91131692 (2) Hypertension, benign ICD Codes: I10 - Essential (primary) hypertension SNOMED: 34400741 (3) Urinary tract infection due to Proteus ICD Codes: N39.0 - Urinary tract infection, site not specified; B96.4 - Proteus (mirabilis) (morganii) as the cause of diseases classified elsewhere SNOMED: 416176171 (4) Episode of generalized weakness ICD Codes: R53.1 - Weakness SNOMED: 64549302 (5) Cellulitis of both lower extremities ICD Codes: L03.115 - Cellulitis of right lower limb; L03.116 - Cellulitis of left lower limb SNOMED: 867169327 (6) Bacteremia ICD Codes: R78.81 - Bacteremia SNOMED: 9070023 (7) Dysphagia ICD Codes: R13.10 - Dysphagia, unspecified SNOMED: 93864847, 569081073 (8) COVID-19 virus detected ICD Codes: U07.1 - COVID-19 SNOMED: 827194204, 798534995 Assessment/Plan: proteus uti, bc bacteroides and G+ cocci, not toxic, wound care, vanco, zosyn covid positive, ST swallow eval try stopping iv fluids Subjective Constitutional: Reports: weakness HEENT: Reports: no symptoms Cardiovascular: Reports: no symptoms Respiratory: Reports: SOB with excertion Gastrointestinal/Abdominal: Reports: no symptoms, poor appetite, poor fluid intake Neurologic/Psychiatric: Reports: weakness Endocrine: Reports: no symptoms Allergies: Coded Allergies: No Known Allergies (Unverified , 08/31/18) Objective Last 24 Hour Vital Signs Date Time Temp Pulse Resp B/P (MAP) Pulse Ox O2 Delivery O2 Flow Rate FiO2 06/23/19 16:00 97.8 71 18 131/72 (91) 97 06/23/19 12:00 97.9 98 19 139/86 (103) 94 06/23/19 09:00 Nasal Cannula 3.0 06/23/19 08:00 98.0 102 19 147/98 (114) 95 06/23/19 04:00 99.0 94 20 144/70 (94) 95 06/23/19 00:00 98.4 104 20 138/63 (88) 96 06/22/19 21:00 Nasal Cannula 3.0 Intake and Output 06/22/19 06/23/19 19:00 07:00 Intake Total 725.0 ml 537.5 ml Balance 725.0 ml 537.5 ml Intake Oral 340 ml 400 ml IV Total 385.0 ml 137.5 ml # Voids 2 2 # Bowel Movements 1 Laboratory Tests 06/23/19 06:00: White Blood Count 15.1H, Red Blood Count 3.57L, Hemoglobin 11.4L, Hematocrit 32.5L, Mean Corpuscular Volume 91, Mean Corpuscular Hemoglobin 31.8H, Mean Corpuscular Hemoglobin Concent 35.0, Red Cell Distribution Width 11.9, Platelet Count 421, Mean Platelet Volume 5.1L, Neutrophils (%) (Auto) 81.1H, Lymphocytes (%) (Auto) 7.3L, Monocytes (%) (Auto) 9.2, Eosinophils (%) (Auto) 1.9, Basophils (%) (Auto) 0.5 06/23/19 10:10: Sodium Level 144, Potassium Level 3.4L, Chloride Level 108H, Carbon Dioxide Level 26, Anion Gap 10, Blood Urea Nitrogen 27H, Creatinine 1.8#H, Estimat Glomerular Filtration Rate 27.2, Glucose Level 173H, Calcium Level 8.1L, Total Bilirubin 0.5, Aspartate Amino Transf (AST/SGOT) 52H, Alanine Aminotransferase ( ALT/SGPT) 78, Alkaline Phosphatase 141H, Total Protein 6.2L, Albumin 1.7L, Globulin 4.5, Albumin/Globulin Ratio 0.4L Height (Feet): 5 Height (Inches): 6.00 Weight (Pounds): 170 General Appearance: no apparent distress, confused EENT: normal ENT inspection Neck: normal alignment Cardiovascular: normal rate Respiratory/Chest: lungs clear Edema: no edema noted Arm (L), no edema noted Arm (R), no edema noted Leg (L), no edema noted Leg (R), no edema noted Pedal (L), no edema noted Pedal (R), no edema noted 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
[2019-06-23] MEDS: Doxycycline Monohydrate 100mg ORAL SCH (22:00)
[2019-06-24] VITALS (7 sets, daily range): BP systolic 131–164; BP diastolic 56–94
[2019-06-24] MEDS: Piperacillin/Tazobactam 3.375 GM in NS 110 ML IVPB SCH ×3 (06:19→21:17)
[2019-06-24 07:20] LABS: BASOPHILS % (AUTO) 0.3 % (0.0-2.0); EOSINOPHILS % (AUTO) 2.8 % (0.0-3.0); HEMATOCRIT 29.9 % (37.0-47.0); HEMOGLOBIN 10.5 G/DL (12.0-16.0); LYMPHOCYTES % (AUTO) 6.9 % (20.0-45.0); MEAN CORPUSCULAR VOLUME 89 FL (80-99); MONOCYTES % (AUTO) 7.4 % (1.0-10.0); NEUTROPHILS % (AUTO) 82.6 % (45.0-75.0); PLATELET COUNT 425 K/UL (150-450); RED BLOOD COUNT 3.36 M/UL (4.20-5.40); RED CELL DISTRIBUTION WIDTH 11.8 % (11.6-14.8); WHITE BLOOD COUNT 15.4 K/UL (4.8-10.8)
[2019-06-24 07:21] LABS: ALANINE AMINOTRANSFERASE 71 U/L (12-78); ALBUMIN 1.7 G/DL (3.4-5.0); ALBUMIN/GLOBULIN RATIO 0.4 (1.0-2.7); ALKALINE PHOSPHATASE 132 U/L (46-116); ANION GAP 9 mmol/L (5-15); ASPARTATE AMINO TRANSFERASE 41 U/L (15-37); BILIRUBIN,TOTAL 0.4 MG/DL (0.2-1.0); BLOOD UREA NITROGEN 29 mg/dL (7-18); CALCIUM 7.8 MG/DL (8.5-10.1); CARBON DIOXIDE 28 MMOL/L (21-32); CHLORIDE 107 MMOL/L (98-107); CREATININE 1.8 MG/DL (0.55-1.30); POTASSIUM 3.2 MMOL/L (3.5-5.1); SODIUM 144 MMOL/L (136-145)
--- NOTE | 2019-06-24 07:21 | NUR ---
HAND-OFF: Report given to Ed Lopez RN.
[2019-06-24] MEDS: Doxycycline Monohydrate 100mg ORAL SCH ×2 (08:30→21:16)
[2019-06-24] MEDS: Heparin 5000 units/ml inj SUBQ SCH ×2 (08:31→21:18)
[2019-06-24] MEDS ORDERED: Vancomycin 1gm/D5W 275ml IVPB SCH ×2 (09:00)
--- NOTE | 2019-06-24 10:42 | NUR ---
NURSE NOTES: SPEECH THERAPIST REPORTED PT STARTED SHAKING. RN TOOK VITALS, WITH BP 144/88 AND PULSE 115. PULSE OX 95% ON 3.5L NC. PT IS AXOX1, AT BASELINE. PT IS CALM AND RESTING IN BED. IN NO APPARENT DISTRESS AT THIS TIME. PT WAS CLEANED AND REPOSITIONED EARLIER AND DRESSINGS CHANGED. RN LEFT CALLBACK NUMBER ON DR OLIVIER'S EMERGENCY EXCHANGE.
--- NOTE | 2019-06-24 11:08 | NUR ---
NURSE NOTES: RN LEFT MESSAGE AT DR JETT'S EXCHANGE.
--- NOTE | 2019-06-24 11:41 | Surgery Progress Note ---
Surgery Progress Note Subjective Additional Comments afebrile, HD stable leukocytosis persistent h/h monitored Objective Last 24 Hour Vital Signs Date Time Temp Pulse Resp B/P (MAP) Pulse Ox O2 Delivery O2 Flow Rate FiO2 06/24/19 10:39 115 20 144/88 (106) 95 06/24/19 09:00 Nasal Cannula 3.0 06/24/19 08:00 98.2 107 19 164/73 (103) 97 06/24/19 04:00 98.2 104 20 147/94 (111) 96 06/24/19 00:00 98.2 95 19 151/74 (99) 96 06/23/19 21:00 Nasal Cannula 3.0 06/23/19 20:00 97.9 103 20 150/73 (98) 95 06/23/19 16:00 97.8 71 18 131/72 (91) 97 06/23/19 12:00 97.9 98 19 139/86 (103) 94 I&O Intake and Output 06/23/19 06/24/19 19:00 07:00 Intake Total 400 ml 785.0 ml Balance 400 ml 785.0 ml IV Total 785.0 ml Other 400 ml # Voids 2 # Bowel Movements 1 Dressing: dry Wound: clean Cardiovascular: RSR Respiratory: decreased breath sounds Abdomen: soft, present bowel sounds Extremities: edema, no cyanosis Laboratory Tests Test 06/24/19 05:40 White Blood Count 15.4 K/UL (4.8-10.8) H Red Blood Count 3.36 M/UL (4.20-5.40) L Hemoglobin 10.5 G/DL (12.0-16.0) L Hematocrit 29.9 % (37.0-47.0) L Mean Corpuscular Volume 89 FL (80-99) Mean Corpuscular Hemoglobin 31.2 PG (27.0-31.0) H Mean Corpuscular Hemoglobin Concent 35.0 G/DL (32.0-36.0) Red Cell Distribution Width 11.8 % (11.6-14.8) Platelet Count 425 K/UL (150-450) Mean Platelet Volume 5.6 FL (6.5-10.1) L Neutrophils (%) (Auto) 82.6 % (45.0-75.0) H Lymphocytes (%) (Auto) 6.9 % (20.0-45.0) L Monocytes (%) (Auto) 7.4 % (1.0-10.0) Eosinophils (%) (Auto) 2.8 % (0.0-3.0) Basophils (%) (Auto) 0.3 % (0.0-2.0) Sodium Level 144 MMOL/L (136-145) Potassium Level 3.2 MMOL/L (3.5-5.1) L Chloride Level 107 MMOL/L (98-107) Carbon Dioxide Level 28 MMOL/L (21-32) Anion Gap 9 mmol/L (5-15) Blood Urea Nitrogen 29 mg/dL (7-18) H Creatinine 1.8 MG/DL (0.55-1.30) H Estimat Glomerular Filtration Rate 27.2 mL/min (>60) Glucose Level 111 MG/DL (74-106) H Calcium Level 7.8 MG/DL (8.5-10.1) L Total Bilirubin 0.4 MG/DL (0.2-1.0) Aspartate Amino Transf (AST/SGOT) 41 U/L (15-37) H Alanine Aminotransferase (ALT/SGPT) 71 U/L (12-78) Alkaline Phosphatase 132 U/L (46-116) H Total Protein 6.2 G/DL (6.4-8.2) L Albumin 1.7 G/DL (3.4-5.0) L Globulin 4.5 g/dL Albumin/Globulin Ratio 0.4 (1.0-2.7) L Plan Problems: (1) Cellulitis of both lower extremities Assessment & Plan: Pt presented on admission with two elongated and crescent shaped DTPI which inviolves both R and L lower gluteal cheeks and both upper thighs. DTPI R gluteus is purple with maroon borders, small opening that is vivian noted at Lower/outer R buttocks. Wound is (L)3cm x (W)19.5cm. Wound curves from outer lower gluteal cheek along upper thigh, laterally to medially. DTPI L lower gluteal cheek is purple, indurated with maroon borders, small opening noted to to lower /outer L gluteal john, Base of wound is vivian with small amt sanguineous exudate. Marginal erythema noted periwound. Wound also curves from L gluteal cheek to upper L thigh laterally to medially .(L)3cm x (W) 21cm. [place] shaped non-blanching erythema without induration noted to upper/outer R buttocks and upper /outer L buttocks. Both heels are boggy with non-blanching erythema. leukocytosis crp / esr elevated on abx cont abx Tx.Plan: Apply Moisture Barrier Paste to wounds R and L buttocks and posterior /upper R and L thighs. Cover wounds with Optifoam drsgs. Change every 3 days and prn. Apply Cavilon Skin Barrier to both heels. Cover each heel with Optifoam drsg. Change every 7 days and prn Reposition at least every 2hours or as tolerated. Off-load heels with Pillow. APM/CHAYA MATTRESS overlay (2) Pain, abdominal, nonspecific Assessment & Plan: resolving tolerating no complaints Gallbladder is unremarkable, without stones, wall thickening, nor pericholecystic fluid. Sonographic Potts's sign is negative. Common bile duct measures 2 mm in diameter. No intrahepatic biliary ductal dilatation. Liver demonstrates increased and coarsened echogenicity, no focal abnormality. Portal vein and hepatic veins are patent. Pancreas is unremarkable. Spleen is unremarkable. Left kidney measures 12.6 cm in length. Right kidney measures 12.7 cm length. Both kidneys demonstrate normal echogenicity. There is no hydronephrosis. No focal abnormality . Non-aneurysmal abdominal aorta . Trace free fluid is seen adjacent to the right hepatic lobe Impression: Liver demonstrates increased echogenicity, compatible with hepatocellular disease, most likely fatty change but other etiologies possible. Negative for gallstones or dilated bile ducts Trace free intraperitoneal fluid (3) COVID-19 virus detected Assessment & Plan: Bilateral interstitial and airspace infiltrates have increased slightly in the interim. The heart size is normal. (4) Abnormal LFTs Assessment & Plan: elevated lft's US Gallbladder is unremarkable, without stones, wall thickening, nor pericholecystic fluid. Sonographic Potts's sign is negative. Common bile duct measures 2 mm in diameter. No intrahepatic biliary ductal dilatation. Liver demonstrates increased and coarsened echogenicity, no focal abnormality. Portal vein and hepatic veins are patent. Pancreas is unremarkable. Spleen is unremarkable. Left kidney measures 12.6 cm in length. Right kidney measures 12.7 cm length. Both kidneys demonstrate normal echogenicity. There is no hydronephrosis. No focal abnormality . Non-aneurysmal abdominal aorta . Trace free fluid is seen adjacent to the right hepatic lobe Impression: Liver demonstrates increased echogenicity, compatible with hepatocellular disease, most likely fatty change but other etiologies possible. Negative for gallstones or dilated bile ducts Trace free intraperitoneal fluid Ventura Avitia June 24, 2019 11:41
--- NOTE | 2019-06-24 13:30 | NUR ---
NURSE NOTES: DR JETT WAS AT NURSE'S STATION AND MADE AWARE OF ELEVATED HEART RATE AND BP EARLIER TODAY, WITH SOB. PER DR JETT "I'LL LOOK INTO THAT. IT'S PROBABLY JUST HER ANXIETY". NO NEW ORDERS GIVEN TO RN. RN SPOKE TO DR DIETZ AND MADE AWARE ANAEROBIC BLOOD CULTURE GRAM POSITIVE COCCI. NEW ORDER FOR IV VANCO 1GM X1 AND THEN PHARMACY TO DOSE. ORDER ENTERED.
[2019-06-24] MEDS ORDERED: Vancomycin 1 GM in D5W 275 ML IVPB SCH (14:00)
--- NOTE | 2019-06-24 14:42 | NUR ---
CASE MANAGEMENT:REVIEW SI;COVID-19 VIRUS. PROTEUS UTI. BACTEREMIA. BLE CELLULITIS. 98.4 115 21 164/73 95% 3L NC WBC 15.4 K+ 3.2 BUN 29 CR 1.8 CA 78 AST 41 ALB 1.7 IS;VANCOMYCIN IV ONCE ZOSYN IV Q8 HR KCL IV ONCE DOXYCYCLINE PO Q12 HRS HEPARIN SUBQ Q12 HRS MED SURG STATUS DCP;FROM [facility]
--- NOTE | 2019-06-24 18:59 | General Progress Note ---
Assessment/Plan Problem List: (1) Hypokalemia ICD Codes: E87.6 - Hypokalemia SNOMED: 73884331 (2) Hypertension, benign ICD Codes: I10 - Essential (primary) hypertension SNOMED: 78959597 (3) Urinary tract infection due to Proteus ICD Codes: N39.0 - Urinary tract infection, site not specified; B96.4 - Proteus (mirabilis) (morganii) as the cause of diseases classified elsewhere SNOMED: 448737427 (4) Episode of generalized weakness ICD Codes: R53.1 - Weakness SNOMED: 13367838 (5) Cellulitis of both lower extremities ICD Codes: L03.115 - Cellulitis of right lower limb; L03.116 - Cellulitis of left lower limb SNOMED: 236956746 (6) Bacteremia ICD Codes: R78.81 - Bacteremia SNOMED: 2765679 (7) Dysphagia ICD Codes: R13.10 - Dysphagia, unspecified SNOMED: 15783874, 070254951 (8) COVID-19 virus detected ICD Codes: U07.1 - COVID-19 SNOMED: 394140963, 656256324 Assessment/Plan: proteus uti, bc bacteroides and G+ cocci, not toxic, wound care, vanco,dc per ID , doxy+ zosyn covid positive, ST swallow eval, doni reorder iv fluids check bladder scan Subjective Constitutional: Reports: weakness HEENT: Reports: no symptoms Cardiovascular: Reports: no symptoms Respiratory: Reports: cough, shortness of breath Gastrointestinal/Abdominal: Reports: no symptoms, poor appetite Genitourinary: Reports: incontinence Neurologic/Psychiatric: Reports: pre-existing deficit Endocrine: Reports: no symptoms Hematologic/Lymphatic: Reports: no symptoms Allergies: Coded Allergies: No Known Allergies (Unverified , 08/31/18) Objective Last 24 Hour Vital Signs Date Time Temp Pulse Resp B/P (MAP) Pulse Ox O2 Delivery O2 Flow Rate FiO2 06/24/19 16:00 97.3 109 21 153/86 (108) 97 06/24/19 11:43 97.7 106 21 131/72 (91) 97 06/24/19 10:39 115 20 144/88 (106) 95 06/24/19 09:00 Nasal Cannula 3.0 06/24/19 08:00 98.2 107 19 164/73 (103) 97 06/24/19 04:00 98.2 104 20 147/94 (111) 96 06/24/19 00:00 98.2 95 19 151/74 (99) 96 06/23/19 21:00 Nasal Cannula 3.0 06/23/19 20:00 97.9 103 20 150/73 (98) 95 Intake and Output 06/23/19 06/24/19 19:00 07:00 Intake Total 400 ml 785.0 ml Balance 400 ml 785.0 ml IV Total 785.0 ml Other 400 ml # Voids 2 # Bowel Movements 1 Laboratory Tests 06/24/19 05:40: White Blood Count 15.4H, Red Blood Count 3.36L, Hemoglobin 10.5L, Hematocrit 29.9L, Mean Corpuscular Volume 89, Mean Corpuscular Hemoglobin 31.2H, Mean Corpuscular Hemoglobin Concent 35.0, Red Cell Distribution Width 11.8, Platelet Count 425, Mean Platelet Volume 5.6L, Neutrophils (%) (Auto) 82.6H, Lymphocytes (%) (Auto) 6.9L, Monocytes (%) (Auto) 7.4, Eosinophils (%) (Auto) 2.8, Basophils (%) (Auto) 0.3, Sodium Level 144, Potassium Level 3.2L, Chloride Level 107, Carbon Dioxide Level 28, Anion Gap 9, Blood Urea Nitrogen 29H, Creatinine 1.8H, Estimat Glomerular Filtration Rate 27.2, Glucose Level 111H, Calcium Level 7.8L, Total Bilirubin 0.4, Aspartate Amino Transf (AST/SGOT) 41H, Alanine Aminotransferase (ALT/SGPT) 71, Alkaline Phosphatase 132H, Total Protein 6.2L, Albumin 1.7L, Globulin 4.5, Albumin/Globulin Ratio 0.4L Height (Feet): 5 Height (Inches): 6.00 Weight (Pounds): 193 General Appearance: no apparent distress, confused EENT: normal ENT inspection Neck: normal alignment Cardiovascular: normal rate Respiratory/Chest: lungs clear Abdomen: soft Skin: other Dmitri Jj MD June 24, 2019 18:59
--- NOTE | 2019-06-24 19:09 | NUR ---
HAND-OFF: Report given to Vazquez GONZALES RN.
--- NOTE | 2019-06-24 19:30 | NUR ---
NURSE NOTES: Received patient in bed. A&OX1, confused. IV site patent and intact. NC 3.0L on. No s/s of respiratory distress noted. Bed in lowest position. Call light within reach. Will continue to monitor.
[2019-06-25] VITALS: BP 120/64
[2019-06-25 04:00] VITALS: BP 116/84
[2019-06-25 05:15] LABS: HEMATOCRIT 31.7 % (37.0-47.0); HEMOGLOBIN 11.2 G/DL (12.0-16.0); MEAN CORPUSCULAR VOLUME 89 FL (80-99); PLATELET COUNT 407 K/UL (150-450); RED BLOOD COUNT 3.57 M/UL (4.20-5.40); RED CELL DISTRIBUTION WIDTH 11.9 % (11.6-14.8); WHITE BLOOD COUNT 20.5 K/UL (4.8-10.8)
[2019-06-25 05:28] LABS: ANION GAP 8 mmol/L (5-15); BLOOD UREA NITROGEN 31 mg/dL (7-18); CALCIUM 7.8 MG/DL (8.5-10.1); CARBON DIOXIDE 29 MMOL/L (21-32); CHLORIDE 103 MMOL/L (98-107); CREATININE 1.8 MG/DL (0.55-1.30); POTASSIUM 3.6 MMOL/L (3.5-5.1); SODIUM 140 MMOL/L (136-145)
[2019-06-25] MEDS: Piperacillin/Tazobactam 3.375 GM in NS 110 ML IVPB SCH ×2 (05:39→13:20)
--- NOTE | 2019-06-25 07:08 | NUR ---
HAND-OFF: Report given to Ed Lopez RN.
[2019-06-25 08:00] VITALS: BP 133/79
[2019-06-25] MEDS: Doxycycline Monohydrate 100mg ORAL SCH (08:57)
[2019-06-25] MEDS: Heparin 5000 units/ml inj SUBQ SCH ×2 (08:58→21:54)
--- NOTE | 2019-06-25 11:36 | NUR ---
NURSE NOTES: DR DIETZ MADE AWARE OF WBC 20.5. PER MD, HE WILL SEE PT TODAY AND RN TO COLLECT UA/REFLEX AND BLOOD CULTURES X2. ORDERS ENTERED.
[2019-06-25 12:00] VITALS: BP 136/85
--- NOTE | 2019-06-25 13:20 | NUR ---
TECHNICAL SERVICE REPCHIEF BUSINESS OFFICER SI: CELLULITIS, WEAKNESS T. 98.5 HR 96 RR 20 B/P 136/85 WBC 20.5 BUN 31 CR 1.8 IS: IVF D5KCL@ 75ML/HR ZOSYN IV DOXYCYCLINE MED/SURG STATUS
--- NOTE | 2019-06-25 14:00 | NUR ---
PT NOTES Attempted to see patient for PT treatment. Patient currently unavailable due to patient undergoing a blood draw with RN. Will follow up with patient tomorrow.
--- NOTE | 2019-06-25 15:00 | NUR ---
NURSE NOTES: RN UNABLE TO COLLECT BLOOD CULTURES. RN RELAYED TO LAB.
[2019-06-25 16:00] VITALS: BP 142/71
--- NOTE | 2019-06-25 17:03 | NUR ---
[facility] [employer] WEEKLY PROGRESS REPORT -GOAL MET: RN has been trained and is aware of aspiration precautions and oral care needs. -GOAL NOT MET: Pt does not consistently consume >75% of meal tray. Pt inconsistently agreeable to PO at mealtime, this is exacerbated by Pt's lethargy. -GOAL NOT MET: MBSS has not been completed at this time due to Pts contact precautions being droplet. Per RN, Pt continues to be lethargic, holds meals till Pt is alert and safe to eat, continue to wait for COVID-19 NEG to complete MBSS and further evaluate swallow physiology PLAN: 1.Continue current diet texture, Per RN, Pt does not present w/ any overt s/s of aspiration during meals of current diet. 2.Pt has dentures that need to be removed at nighttime for cleaning. 3.Continue skilled dysphagia management and intervention 3x a week x 1 week
[2019-06-25 17:52] LABS: APPEARANCE,URINE CLOUDY; BILIRUBIN, URINE NEGATIVE (NEGATIVE); COLOR,URINE PALE YELLOW; GLUCOSE, URINE (UA) NEGATIVE (NEGATIVE); KETONES,URINE NEGATIVE (NEGATIVE); LEUKOCYTE ESTERASE ,URINE NEGATIVE (NEGATIVE); NITRITE,URINE NEGATIVE (NEGATIVE); PH,URINE 5 (4.5-8.0); PROTEIN,URINE 2+ (NEGATIVE); UROBILINOGEN,URINE NORMAL MG/DL (0.0-1.0)
--- NOTE | 2019-06-25 19:07 | Infectious Diseases Prog Note ---
Assessment/Plan Assessment/Plan ASSESSMENT AND PLAN: 1. 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 Patient has history of hypertension. Treatment per primary care team including Dr. Jj. 3. Patient has history of weakness. 4. Psychiatric disease. 5. Obesity. 6. No known drug allergies. 7. Family history noncontributory. 8. Social history negative. 9. MAR was noted. 10. Case discussed with RN. 11. COVID-19 virus isolation. 12. Case discussed with Dr. Jj yesterday. 13. Past medical history includes obesity, hypertension, psychiatric disease, weakness. No history diabetes or cancer. 14. Continue treatment per primary consultants. Subjective Constitutional: Reports: fatigue; Denies: fever HEENT: Reports: congestion, other - + cough Respiratory: Reports: dry cough; Denies: shortness of breath Cardiovascular: Denies: chest pain Gastrointestinal/Abdominal: Reports: diarrhea - + diarrhea per RN; Denies: nausea, vomiting Neurologic: Denies: headache Psychiatric: Denies: depression Skin: Denies: rash Hematologic: Denies: bleeding Musculoskeletal: Denies: pain Allergies: Coded Allergies: No Known Allergies (Unverified , 08/31/18) Objective Vital Signs Last 24 Hour Vital Signs Date Time Temp Pulse Resp B/P (MAP) Pulse Ox O2 Delivery O2 Flow Rate FiO2 06/25/19 16:00 98.7 97 19 142/71 (94) 98 06/25/19 12:00 98.5 96 20 136/85 (102) 97 06/25/19 09:00 Nasal Cannula 3.0 06/25/19 08:00 98.0 100 20 133/79 (97) 94 06/25/19 04:00 97.9 97 20 116/84 (95) 92 06/25/19 00:00 99.1 111 20 120/64 (82) 95 06/24/19 20:35 Nasal Cannula 3.0 06/24/19 20:00 98.2 114 21 144/56 (85) 96 Height (Feet): 5 Height (Inches): 6.00 Weight (Pounds): 193 General Appearance: no acute distress HEENT: normocephalic, atraumatic, anicteric, mucous membranes moist Respiratory/Chest: crackles/rales, rhonchi - bilaterally Cardiovascular: normal rate, regular rhythm, no gallop/murmur, no JVD Abdomen: normal bowel sounds, soft, non tender, no organomegaly, non distended Genitourinary: other - no luna Extremities: no cyanosis Skin: no rash Neurologic/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 The heart size is upper limits of normal. Impression: Increased bilateral interstitial and focal groundglass opacities, likely pneumonia, over one day Chest x-ray - 06/22/19 - Procedure: XRAY Chest 1v Indication: Shortness of breath Technique: One view of the chest Comparison: 06/18/2019 Findings: Bilateral interstitial and airspace infiltrates have increased slightly in the interim. The heart size is normal. Impression: Slightly increased bilateral infiltrates, over 4 days Microbiology Date/Time Source Procedure Growth Status 06/21/19 22:05 Blood Blood Culture - Final Staphylococcus Epidermidis Complete 06/13/19 21:04 Nasal Nares MRSA Culture - Final NO METHICILLIN RESISTANT STAPH AUREUS... Complete 06/21/19 23:05 Urine,Clean Catch Urine Culture - Preliminary [place] Albicans Resulted 06/13/19 21:04 Rectum VRE Culture - Final NO VANCOMYCIN RESISTANT ENTEROCOCCUS ... Complete Laboratory Tests Test 06/25/19 04:00 06/25/19 16:45 White Blood Count 20.5 K/UL (4.8-10.8) H Red Blood Count 3.57 M/UL (4.20-5.40) L Hemoglobin 11.2 G/DL (12.0-16.0) L Hematocrit 31.7 % (37.0-47.0) L Mean Corpuscular Volume 89 FL (80-99) Mean Corpuscular Hemoglobin 31.3 PG (27.0-31.0) H Mean Corpuscular Hemoglobin Concent 35.2 G/DL (32.0-36.0) Red Cell Distribution Width 11.9 % (11.6-14.8) Platelet Count 407 K/UL (150-450) Mean Platelet Volume 6.2 FL (6.5-10.1) L Neutrophils (%) (Auto) % (45.0-75.0) Lymphocytes (%) (Auto) % (20.0-45.0) Monocytes (%) (Auto) % (1.0-10.0) Eosinophils (%) (Auto) % (0.0-3.0) Basophils (%) (Auto) % (0.0-2.0) Differential Total Cells Counted 100 Neutrophils % (Manual) 84 % (45-75) H Lymphocytes % (Manual) 10 % (20-45) L Monocytes % (Manual) 5 % (1-10) Eosinophils % (Manual) 1 % (0-3) Basophils % (Manual) 0 % (0-2) Band Neutrophils 0 % (0-8) Platelet Estimate Adequate Platelet Morphology Normal Hypochromasia 1+ Anisocytosis 1+ Sodium Level 140 MMOL/L (136-145) Potassium Level 3.6 MMOL/L (3.5-5.1) Chloride Level 103 MMOL/L (98-107) Carbon Dioxide Level 29 MMOL/L (21-32) Anion Gap 8 mmol/L (5-15) Blood Urea Nitrogen 31 mg/dL (7-18) H Creatinine 1.8 MG/DL (0.55-1.30) H Estimat Glomerular Filtration Rate 27.2 mL/min (>60) Glucose Level 116 MG/DL (74-106) H Calcium Level 7.8 MG/DL (8.5-10.1) L Random Vancomycin Level 23.7 ug/mL Urine Color Pale yellow Urine Appearance Cloudy Urine pH 5 (4.5-8.0) Urine Specific [place] 1.010 (1.005-1.035) Urine Protein 2+ (NEGATIVE) H Urine Glucose (UA) Negative (NEGATIVE) Urine Ketones Negative (NEGATIVE) Urine Blood 3+ (NEGATIVE) H Urine Nitrite Negative (NEGATIVE) Urine Bilirubin Negative (NEGATIVE) Urine Urobilinogen Normal MG/DL (0.0-1.0) Urine Leukocyte Esterase Negative (NEGATIVE) Urine RBC 10-15 /HPF (0 - 2) H Urine WBC 2-4 /HPF (0 - 2) Urine Squamous Epithelial Cells Many /LPF (NONE/OCC) H Urine Bacteria Moderate /HPF (NONE) H Current Medications Medications (Trade) Dose Ordered Sig/Venkata Route PRN Reason Start Time Stop Time Status Last Admin Dose Admin Acetaminophen (Tylenol) 650 mg Q4H PRN ORAL Mild Pain (Pain Scale 1-3) 06/13/19 20:15 07/13/19 20:14 06/21/19 21:30 Acetaminophen (Tylenol) 650 mg Q4H PRN ORAL Temp >100.5 06/13/19 20:15 07/13/19 20:14 Dextrose (Dextrose 50%) 25 ml Q30M PRN IV Hypoglycemia 06/13/19 20:15 09/11/19 20:14 Dextrose (Dextrose 50%) 50 ml Q30M PRN IV Hypoglycemia 06/13/19 20:15 09/11/19 20:14 Heparin Sodium (Porcine) (Heparin 5000 units/ml) 5,000 units EVERY 12 HOURS SUBQ 06/13/19 21:00 07/28/19 20:59 06/25/19 08:58 Ondansetron HCl (Zofran) 4 mg Q6H PRN IVP Nausea & Vomiting 06/13/19 20:15 07/13/19 20:14 06/25/19 08:56 Polyethylene Glycol (Miralax) 17 gm HSPRN PRN ORAL Constipation 06/13/19 20:15 07/13/19 20:14 Potassium Chloride 30 meq/ Dextrose 1,015 ml @ 75 mls/hr [id number] IV 06/23/19 21:30 07/23/19 21:29 06/25/19 13:20 Quetiapine Fumarate (SEROqueL) 100 mg DAILY ORAL 06/14/19 09:00 07/29/19 08:59 06/25/19 08:57 Quetiapine Fumarate (SEROqueL) 250 mg BEDTIME ORAL 06/13/19 21:00 07/28/19 20:59 06/24/19 21:16 Jeremy Mariano MD June 25, 2019 19:07
--- NOTE | 2019-06-25 19:21 | General Progress Note ---
Assessment/Plan Problem List: (1) Hypokalemia ICD Codes: E87.6 - Hypokalemia SNOMED: 14421565 (2) Hypertension, benign ICD Codes: I10 - Essential (primary) hypertension SNOMED: 26144373 (3) Urinary tract infection due to Proteus ICD Codes: N39.0 - Urinary tract infection, site not specified; B96.4 - Proteus (mirabilis) (morganii) as the cause of diseases classified elsewhere SNOMED: 545529528 (4) Episode of generalized weakness ICD Codes: R53.1 - Weakness SNOMED: 54922586 (5) Cellulitis of both lower extremities ICD Codes: L03.115 - Cellulitis of right lower limb; L03.116 - Cellulitis of left lower limb SNOMED: 166777079 (6) Bacteremia ICD Codes: R78.81 - Bacteremia SNOMED: 0414506 (7) Dysphagia ICD Codes: R13.10 - Dysphagia, unspecified SNOMED: 40688780, 595432113 (8) COVID-19 virus detected ICD Codes: U07.1 - COVID-19 SNOMED: 191440551, 109988928 (9) NISHANT (acute kidney injury) ICD Codes: N17.9 - Acute kidney failure, unspecified SNOMED: 1695902, 88224137 Assessment/Plan: proteus uti, bc bacteroides and G+ cocci, not toxic, wound care, vanco,dc per ID , doxy+ zosyn covid positive, ST swallow eval, nishant reorder iv fluids check bladder scan Subjective ROS Limited/Unobtainable: Yes Allergies: Coded Allergies: No Known Allergies (Unverified , 08/31/18) Objective Last 24 Hour Vital Signs Date Time Temp Pulse Resp B/P (MAP) Pulse Ox O2 Delivery O2 Flow Rate FiO2 06/25/19 16:00 98.7 97 19 142/71 (94) 98 06/25/19 12:00 98.5 96 20 136/85 (102) 97 06/25/19 09:00 Nasal Cannula 3.0 06/25/19 08:00 98.0 100 20 133/79 (97) 94 06/25/19 04:00 97.9 97 20 116/84 (95) 92 06/25/19 00:00 99.1 111 20 120/64 (82) 95 06/24/19 20:35 Nasal Cannula 3.0 06/24/19 20:00 98.2 114 21 144/56 (85) 96 Intake and Output 06/24/19 06/25/19 19:00 07:00 Intake Total 2205.000 ml 1037.5 ml Balance 2205.000 ml 1037.5 ml Intake Oral 960 ml IV Total 1245.000 ml 1037.5 ml Bladder Scan Volume Amount 251ml # Voids 1 2 # Bowel Movements 2 Laboratory Tests 06/25/19 04:00: White Blood Count 20.5H, Red Blood Count 3.57L, Hemoglobin 11.2L, Hematocrit 31.7L, Mean Corpuscular Volume 89, Mean Corpuscular Hemoglobin 31.3H, Mean Corpuscular Hemoglobin Concent 35.2, Red Cell Distribution Width 11.9, Platelet Count 407, Mean Platelet Volume 6.2L, Neutrophils (%) (Auto) , Lymphocytes (%) ( Auto) , Monocytes (%) (Auto) , Eosinophils (%) (Auto) , Basophils (%) (Auto) , Differential Total Cells Counted 100, Neutrophils % (Manual) 84H, Lymphocytes % (Manual) 10L, Monocytes % (Manual) 5, Eosinophils % (Manual) 1, Basophils % ( Manual) 0, Band Neutrophils 0, Platelet Estimate Adequate, Platelet Morphology Normal, Hypochromasia 1+, Anisocytosis 1+, Sodium Level 140, Potassium Level 3.6 , Chloride Level 103, Carbon Dioxide Level 29, Anion Gap 8, Blood Urea Nitrogen 31H, Creatinine 1.8H, Estimat Glomerular Filtration Rate 27.2, Glucose Level 116H, Calcium Level 7.8L, Random Vancomycin Level 23.7 06/25/19 16:45: Urine Color Pale yellow, Urine Appearance Cloudy, Urine pH 5, Urine Specific [place] 1.010, Urine Protein 2+H, Urine Glucose (UA) Negative, Urine Ketones Negative, Urine Blood 3+H, Urine Nitrite Negative, Urine Bilirubin Negative, Urine Urobilinogen Normal, Urine Leukocyte Esterase Negative, Urine RBC 10-15H, Urine WBC 2-4, Urine Squamous Epithelial Cells ManyH, Urine Bacteria ModerateH Height (Feet): 5 Height (Inches): 6.00 Weight (Pounds): 193 General Appearance: lethargic EENT: normal ENT inspection Neck: normal alignment Cardiovascular: normal rate Respiratory/Chest: lungs clear Abdomen: soft Edema: no edema noted Arm (L), no edema noted Arm (R), no edema noted Leg (L), no edema noted Leg (R), no edema noted Pedal (L), no edema noted Pedal (R), no edema noted Generalized Neurologic: disoriented Dmitri Jj MD June 25, 2019 19:21
--- NOTE | 2019-06-25 19:21 | NUR ---
HAND-OFF: Report given to True GONZALES RN.
--- NOTE | 2019-06-25 19:30 | NUR ---
NURSE NOTES: Patient in bed, on O2 @ 4LPM via nasal cannula, no complaint of pain at this time. Call light in reach. Bed in lowest, lock engaged and alarm on. Will continue to monitor.
--- NOTE | 2019-06-25 19:33 | Surgery Progress Note ---
Surgery Progress Note Subjective Additional Comments acute worsening leukocytosis id input noted Objective Last 24 Hour Vital Signs Date Time Temp Pulse Resp B/P (MAP) Pulse Ox O2 Delivery O2 Flow Rate FiO2 06/25/19 16:00 98.7 97 19 142/71 (94) 98 06/25/19 12:00 98.5 96 20 136/85 (102) 97 06/25/19 09:00 Nasal Cannula 3.0 06/25/19 08:00 98.0 100 20 133/79 (97) 94 06/25/19 04:00 97.9 97 20 116/84 (95) 92 06/25/19 00:00 99.1 111 20 120/64 (82) 95 06/24/19 20:35 Nasal Cannula 3.0 06/24/19 20:00 98.2 114 21 144/56 (85) 96 I&O Intake and Output 06/24/19 06/25/19 19:00 07:00 Intake Total 2205.000 ml 1037.5 ml Balance 2205.000 ml 1037.5 ml Intake Oral 960 ml IV Total 1245.000 ml 1037.5 ml Bladder Scan Volume Amount 251ml # Voids 1 2 # Bowel Movements 2 Dressing: saturated Wound: other Drains: other Cardiovascular: RSR Respiratory: decreased breath sounds Abdomen: soft, present bowel sounds Extremities: edema, no cyanosis Laboratory Tests Test 06/25/19 04:00 06/25/19 16:45 White Blood Count 20.5 K/UL (4.8-10.8) H Red Blood Count 3.57 M/UL (4.20-5.40) L Hemoglobin 11.2 G/DL (12.0-16.0) L Hematocrit 31.7 % (37.0-47.0) L Mean Corpuscular Volume 89 FL (80-99) Mean Corpuscular Hemoglobin 31.3 PG (27.0-31.0) H Mean Corpuscular Hemoglobin Concent 35.2 G/DL (32.0-36.0) Red Cell Distribution Width 11.9 % (11.6-14.8) Platelet Count 407 K/UL (150-450) Mean Platelet Volume 6.2 FL (6.5-10.1) L Neutrophils (%) (Auto) % (45.0-75.0) Lymphocytes (%) (Auto) % (20.0-45.0) Monocytes (%) (Auto) % (1.0-10.0) Eosinophils (%) (Auto) % (0.0-3.0) Basophils (%) (Auto) % (0.0-2.0) Differential Total Cells Counted 100 Neutrophils % (Manual) 84 % (45-75) H Lymphocytes % (Manual) 10 % (20-45) L Monocytes % (Manual) 5 % (1-10) Eosinophils % (Manual) 1 % (0-3) Basophils % (Manual) 0 % (0-2) Band Neutrophils 0 % (0-8) Platelet Estimate Adequate Platelet Morphology Normal Hypochromasia 1+ Anisocytosis 1+ Sodium Level 140 MMOL/L (136-145) Potassium Level 3.6 MMOL/L (3.5-5.1) Chloride Level 103 MMOL/L (98-107) Carbon Dioxide Level 29 MMOL/L (21-32) Anion Gap 8 mmol/L (5-15) Blood Urea Nitrogen 31 mg/dL (7-18) H Creatinine 1.8 MG/DL (0.55-1.30) H Estimat Glomerular Filtration Rate 27.2 mL/min (>60) Glucose Level 116 MG/DL (74-106) H Calcium Level 7.8 MG/DL (8.5-10.1) L Random Vancomycin Level 23.7 ug/mL Urine Color Pale yellow Urine Appearance Cloudy Urine pH 5 (4.5-8.0) Urine Specific [place] 1.010 (1.005-1.035) Urine Protein 2+ (NEGATIVE) H Urine Glucose (UA) Negative (NEGATIVE) Urine Ketones Negative (NEGATIVE) Urine Blood 3+ (NEGATIVE) H Urine Nitrite Negative (NEGATIVE) Urine Bilirubin Negative (NEGATIVE) Urine Urobilinogen Normal MG/DL (0.0-1.0) Urine Leukocyte Esterase Negative (NEGATIVE) Urine RBC 10-15 /HPF (0 - 2) H Urine WBC 2-4 /HPF (0 - 2) Urine Squamous Epithelial Cells Many /LPF (NONE/OCC) H Urine Bacteria Moderate /HPF (NONE) H Plan Problems: (1) Cellulitis of both lower extremities Assessment & Plan: Pt presented on admission with two elongated and crescent shaped DTPI which inviolves both R and L lower gluteal cheeks and both upper thighs. DTPI R gluteus is purple with maroon borders, small opening that is vivian noted at Lower/outer R buttocks. Wound is (L)3cm x (W)19.5cm. Wound curves from outer lower gluteal cheek along upper thigh, laterally to medially. DTPI L lower gluteal cheek is purple, indurated with maroon borders, small opening noted to to lower /outer L gluteal john, Base of wound is vivian with small amt sanguineous exudate. Marginal erythema noted periwound. Wound also curves from L gluteal cheek to upper L thigh laterally to medially .(L)3cm x (W) 21cm. [place] shaped non-blanching erythema without induration noted to upper/outer R buttocks and upper /outer L buttocks. Both heels are boggy with non-blanching erythema. leukocytosis crp / esr elevated on abx cont abx Tx.Plan: Apply Moisture Barrier Paste to wounds R and L buttocks and posterior /upper R and L thighs. Cover wounds with Optifoam drsgs. Change every 3 days and prn. Apply Cavilon Skin Barrier to both heels. Cover each heel with Optifoam drsg. Change every 7 days and prn Reposition at least every 2hours or as tolerated. Off-load heels with Pillow. APM/CHAYA MATTRESS overlay (2) Pain, abdominal, nonspecific Assessment & Plan: resolving tolerating no complaints Gallbladder is unremarkable, without stones, wall thickening, nor pericholecystic fluid. Sonographic Potts's sign is negative. Common bile duct measures 2 mm in diameter. No intrahepatic biliary ductal dilatation. Liver demonstrates increased and coarsened echogenicity, no focal abnormality. Portal vein and hepatic veins are patent. Pancreas is unremarkable. Spleen is unremarkable. Left kidney measures 12.6 cm in length. Right kidney measures 12.7 cm length. Both kidneys demonstrate normal echogenicity. There is no hydronephrosis. No focal abnormality . Non-aneurysmal abdominal aorta . Trace free fluid is seen adjacent to the right hepatic lobe Impression: Liver demonstrates increased echogenicity, compatible with hepatocellular disease, most likely fatty change but other etiologies possible. Negative for gallstones or dilated bile ducts Trace free intraperitoneal fluid (3) COVID-19 virus detected Assessment & Plan: Bilateral interstitial and airspace infiltrates have increased slightly in the interim. The heart size is normal. (4) Abnormal LFTs Assessment & Plan: elevated lft's US Gallbladder is unremarkable, without stones, wall thickening, nor pericholecystic fluid. Sonographic Potts's sign is negative. Common bile duct measures 2 mm in diameter. No intrahepatic biliary ductal dilatation. Liver demonstrates increased and coarsened echogenicity, no focal abnormality. Portal vein and hepatic veins are patent. Pancreas is unremarkable. Spleen is unremarkable. Left kidney measures 12.6 cm in length. Right kidney measures 12.7 cm length. Both kidneys demonstrate normal echogenicity. There is no hydronephrosis. No focal abnormality . Non-aneurysmal abdominal aorta . Trace free fluid is seen adjacent to the right hepatic lobe Impression: Liver demonstrates increased echogenicity, compatible with hepatocellular disease, most likely fatty change but other etiologies possible. Negative for gallstones or dilated bile ducts Trace free intraperitoneal fluid DAILY ESTIMATED NEEDS: Needs based on wound, 63.6kg adj 30-35 kcals/kg 4428-0199 total kcals 1.25-1.5 g protein/kg 80-95 g total protein 25-30 mL/kg 3787-8387 total fluid mLs NUTRITION DIAGNOSIS: * Swallowing difficulty r/t dysphagia as evidenced by CERTIFIED MEDICAL TECHNICIAN ASSISTANT evenid, now on [facility] soft ground texture, 1:1 feeds, poor and variable intake. * Increased kcal/prot intake needs R/T wound healing as evidenced by pt admitted w/ two elongated and crescent shaped DTPI which inviolves both R and L lower gluteal cheeks and both upper thighs, DTPI at R gluteus, L lower gluteal cheek, non-blanching erythema without induration noted to upper/outer R buttocks and upper /outer L buttocks, non-blanching erythema at BL heels. [facility] w/ Ensure Enlive TID w/ meals PO DIET RECOMMENDATIONS: Regular diet/ Texture per CERTIFIED MEDICAL TECHNICIAN ASSISTANT ADDITIONAL RECOMMENDATIONS: 1) Continue Ensure Enlive TID 2) Recalibrate bed scale for accurate CBW 3) Wound care: add MVI x 1, Vit C 250mg QD John BID as tolerated 4) Monitor PO intake and tolerance -> pt w/ lethargy and pt now on non-rebreather mask. Consult RD for TF rec if indicated [place]ura Avitia June 25, 2019 19:32
[2019-06-25 20:00] VITALS: BP 149/69
[2019-06-25 20:00] LABS: HEMATOCRIT 31.1 % (37.0-47.0); HEMOGLOBIN 10.2 G/DL (12.0-16.0); MEAN CORPUSCULAR VOLUME 96 FL (80-99); PLATELET COUNT 375 K/UL (150-450); RED BLOOD COUNT 3.25 M/UL (4.20-5.40); RED CELL DISTRIBUTION WIDTH 13.5 % (11.6-14.8)
[2019-06-25] MEDS ORDERED: cefTRIAXone 1 GM in D5W 50 ML IVPB SCH (20:00)
[2019-06-25 20:02] LABS: WHITE BLOOD COUNT 26.2 K/UL (4.8-10.8)
[2019-06-25 20:20] LABS: ALANINE AMINOTRANSFERASE 110 U/L (12-78); ALBUMIN 1.7 G/DL (3.4-5.0); ALBUMIN/GLOBULIN RATIO 0.5 (1.0-2.7); ALKALINE PHOSPHATASE 157 U/L (46-116); ANION GAP 11 mmol/L (5-15); ASPARTATE AMINO TRANSFERASE 69 U/L (15-37); BILIRUBIN,TOTAL 0.5 MG/DL (0.2-1.0); BLOOD UREA NITROGEN 31 mg/dL (7-18); CALCIUM 7.7 MG/DL (8.5-10.1); CARBON DIOXIDE 27 MMOL/L (21-32); CHLORIDE 103 MMOL/L (98-107); CREATININE 1.7 MG/DL (0.55-1.30); POTASSIUM 3.8 MMOL/L (3.5-5.1); SODIUM 141 MMOL/L (136-145)
--- NOTE | 2019-06-25 20:40 | NUR ---
NURSE NOTES: Called Dr. Funk for critical value of WBC 26.2. He ordered CBC and CMP for tomorrow AM. CBC order is already ordered by other MD.
[2019-06-25] MEDS ORDERED: Vancomycin oral 125mg/2.5ml ORAL SCH (21:00)
--- NOTE | 2019-06-25 21:00 | NUR ---
NURSE NOTES: Patient's O2 sat decreased to 76% while on nasal cannula. RT was called. He changed to venturi mask but patient's O2 sat is still low on 14LPM. Patient was put on non rebreather mask and saturating up to 95%. Will continue to monitor.
--- NOTE | 2019-06-25 22:44 | NUR ---
NURSE NOTES: Spoke with Dr. Funk and he ordered some changes on patient's antibiotic. Order in and will carry out.
[2019-06-26] VITALS (13 sets, daily range): BP systolic 122–148; BP diastolic 54–83
--- NOTE | 2019-06-26 00:08 | NUR ---
NURSE NOTES: Collected stool specimen for Cdiff and sent to the lab before Flagyl was started.
--- NOTE | 2019-06-26 05:57 | NUR ---
NURSE NOTES: Patient is on non rebreather mask saturating 90%. Called RT Leandro and he advised to get ABG order. Charge nurse made aware and she spoke to the erection shop supervisor. ABG was done and obtained result. Called Dr. Jj and the call was redirected to the the covering doctor for pulmo, Dr. Parrish. Left message @ 05:50. Waiting for call back.
--- NOTE | 2019-06-26 06:50 | NUR ---
NURSE NOTES: Received pt from DARLINE Ny from . pt is observed in bed, AO X1, confused. pt is on nonrebreather mask: 15 L, 100%. teletypesetter monitor applied to patient, showing ST with HR of 104. Purewick applied and connected to suction. skin alterations noted, will endorse to day shift nurse to follow up regarding wound pics. RFA 22 G and RH 24 G IV sites are patent and intact, asymptomatic. RH 24 G IV site running D5W with 30 meq KCL at 75 cc/hr. Vital signs obtained. BP: 129/64, HR: 104, RR: 30, sat: 91%, temp: 99.5. bed in lowest position and locked, siderails up X3, call light within reach. will continue to monitor. Addendum: 06/26/19 at 0751 by JARETT IRVING RN RN late entry: belongings reviewed with RN. noted pt to be wearing upper dentures. 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 per transferring RN, will check pt's room for missing belongings.
--- NOTE | 2019-06-26 06:52 | NUR ---
NURSE NOTES: Spoke with Dr. Parrish and obtained orders including transfer the patient to ICU and stat labs. Per chief maintenance supervisor, due to no bed available transfer the patient to [facility]. Transferred patient to [facility] - room 236 and report given to Shelby. Chart and meds handed to RN.
[2019-06-26 07:13] LABS: HEMATOCRIT 32.8 % (37.0-47.0); HEMOGLOBIN 10.7 G/DL (12.0-16.0); MEAN CORPUSCULAR VOLUME 97 FL (80-99); PLATELET COUNT 372 K/UL (150-450); RED BLOOD COUNT 3.37 M/UL (4.20-5.40); RED CELL DISTRIBUTION WIDTH 13.4 % (11.6-14.8)
[2019-06-26 07:17] LABS: WHITE BLOOD COUNT 25.8 K/UL (4.8-10.8)
--- NOTE | 2019-06-26 07:19 | NUR ---
NURSE NOTES: Checked patient's cabinet in room 403-2 and other parts of the room, unable to find other patient's belongings. Checked patient's previous room 405-1 but there was nothing in there.
--- NOTE | 2019-06-26 07:25 | NUR ---
NURSE NOTES: Received report from DARLINE Ryan. Patient awake and responsive to verbal. On O2 15L/min via Non-rebreather mask. O2 sat 91% on the portable machine. Right Hand 24G IV and Left forearm 22G intact and clean with D5W 30meq 75ml/hr. Kept dry, clean, comfortable and HOB>30. Bed alarm on. Call light placed in easy reach. Will continue plan of care.
[2019-06-26 07:29] LABS: ALANINE AMINOTRANSFERASE 92 U/L (12-78); ALBUMIN 1.6 G/DL (3.4-5.0); ALBUMIN/GLOBULIN RATIO 0.4 (1.0-2.7); ALKALINE PHOSPHATASE 141 U/L (46-116); ANION GAP 10 mmol/L (5-15); ASPARTATE AMINO TRANSFERASE 54 U/L (15-37); BILIRUBIN,TOTAL 0.6 MG/DL (0.2-1.0); BLOOD UREA NITROGEN 26 mg/dL (7-18); CALCIUM 7.9 MG/DL (8.5-10.1); CARBON DIOXIDE 28 MMOL/L (21-32); CHLORIDE 101 MMOL/L (98-107); CREATINE KINASE 38 U/L (26-308); CREATININE 1.7 MG/DL (0.55-1.30); POTASSIUM 3.8 MMOL/L (3.5-5.1); SODIUM 139 MMOL/L (136-145)
--- NOTE | 2019-06-26 07:39 | NUR ---
HAND-OFF: Report given to DARLINE Lubin. endorsed plan of care. endorsed to take wound pictures.
[2019-06-26] MEDS ORDERED: Cefepime HCl 2 GM in D5W 55 ML IV SCH ×4 (09:00)
[2019-06-26] MEDS ORDERED: Heparin 5000 units/ml inj SUBQ SCH ×2 (09:00→21:00)
[2019-06-26] MEDS ORDERED: Miralax 17gm pkt ORAL PRN ×2 (09:00→16:30)
[2019-06-26] MEDS: Vancomycin oral 125mg/2.5ml ORAL SCH ×2 (09:21→13:00)
--- NOTE | 2019-06-26 10:29 | NUR ---
RD ASSESSMENT & RECOMMENDATIONS SEE CARE ACTIVITY FOR COMPLETE ASSESSMENT DAILY ESTIMATED NEEDS: Needs based on wound, 63.6kg adj 30-35 kcals/kg 4728-3661 total kcals 1.25-1.5 g protein/kg 80-95 g total protein 25-30 mL/kg 3643-1575 total fluid mLs NUTRITION DIAGNOSIS: * Swallowing difficulty r/t dysphagia as evidenced by THREAD CUTTER eval, now on mech soft ground texture, 1:1 feeds, poor and variable intake. * Increased kcal/prot intake needs R/T wound healing as evidenced by pt admitted w/ two elongated and crescent shaped DTPI which inviolves both R and L lower gluteal cheeks and both upper thighs, DTPI at R gluteus, L lower gluteal cheek, non-blanching erythema without induration noted to upper/outer R buttocks and upper /outer L buttocks, non-blanching erythema at BL heels. CURRENT DIET:Regular mech soft ground w/ Ensure Enlive TID w/ meals PO DIET RECOMMENDATIONS: Regular diet/ Texture per THREAD CUTTER ADDITIONAL RECOMMENDATIONS: 1) Continue Ensure Enlive TID 2) Recalibrate bed scale for accurate CBW 3) Wound care: add MVI x 1, Vit C 250mg QD John BID as tolerated 4) Monitor PO intake and tolerance -> pt w/ lethargy and pt now on non-rebreather mask. Consult RD for TF rec if indicated
--- NOTE | 2019-06-26 10:33 | NUR ---
PT NOTES: Chart reviewed. Patient with respiratory decline this morning and transferred from [facility] to [facility]. Patient discharged from PT due to decline in medical status. Patient will need new orders from M.D. to re-evaluate patient for PT. Will await new orders for PT if appropriate. Thank you.
--- NOTE | 2019-06-26 10:34 | NUR ---
NURSE NOTES: Seen by Dr. Jj and assessed patient.
--- NOTE | 2019-06-26 10:35 | NUR ---
NURSE NOTES: Informed Dr. Jj regarding Low bicarb. He said he will check.
--- NOTE | 2019-06-26 10:50 | NUR ---
CASE MANAGEMENT: REVIEW 06/26/2019 SI;Cellulitis of both lower extremities. COVID (+) 5/2 T: 100.3 HR 136 RR 24 B/P 148/77 SATS 90% ON 3L/NC LABS: WBC 25.8 BUN 26 CR 1.7 GLU 108 CA 7.9 AST 54 ALT 92 ALP 141 ABGs PH 7.254 PCO2 19.6 PO2 52.5 HCO3 8.5 O2 SAT 88 BE -17.2 IS: KCL @ 75 ML/HR SEROQUEL PO QHS CEFEPIME IV Q24H FLUCONAZOLE IV Q24H FLAGYL IV Q8H VANCO PO QID SDU PLAN OF CARE: CXR
[2019-06-26] MEDS ORDERED: Heparin1,000 units/500ml Premix(Conc:2 units/ml) IV PRN ×2 (11:00→16:30)
[2019-06-26] MEDS ORDERED: Lidocaine 1% Plain 30 ml INJ PRN ×2 (11:00→16:30)
--- NOTE | 2019-06-26 11:07 | General Progress Note ---
Assessment/Plan Problem List: (1) Hypokalemia ICD Codes: E87.6 - Hypokalemia SNOMED: 06547712 (2) Hypertension, benign ICD Codes: I10 - Essential (primary) hypertension SNOMED: 28025488 (3) Urinary tract infection due to Proteus ICD Codes: N39.0 - Urinary tract infection, site not specified; B96.4 - Proteus (mirabilis) (morganii) as the cause of diseases classified elsewhere SNOMED: 674089834 (4) Episode of generalized weakness ICD Codes: R53.1 - Weakness SNOMED: 63633602 (5) Cellulitis of both lower extremities ICD Codes: L03.115 - Cellulitis of right lower limb; L03.116 - Cellulitis of left lower limb SNOMED: 171081060 (6) Bacteremia ICD Codes: R78.81 - Bacteremia SNOMED: 9560775 (7) Dysphagia ICD Codes: R13.10 - Dysphagia, unspecified SNOMED: 29593527, 708490471 (8) COVID-19 virus detected ICD Codes: U07.1 - COVID-19 SNOMED: 801852195, 200343987 (9) NISHANT (acute kidney injury) ICD Codes: N17.9 - Acute kidney failure, unspecified SNOMED: 3231654, 31275259 (10) Metabolic acidosis ICD Codes: E87.2 - Acidosis SNOMED: 55653776 (11) Acute respiratory failure ICD Codes: J96.00 - Acute respiratory failure, unspecified whether with hypoxia or hypercapnia SNOMED: 23500471 Assessment/Plan: proteus uti, bc bacteroides and G+ cocci, acute resp distress and metabolic acidosis, repeat abg and cxr, may need intubation, family called, grave prognosis , icu orders given and updated, 40 min icu time Subjective ROS Limited/Unobtainable: Yes Allergies: Coded Allergies: No Known Allergies (Unverified , 08/31/18) Objective Last 24 Hour Vital Signs Date Time Temp Pulse Resp B/P (MAP) Pulse Ox O2 Delivery O2 Flow Rate FiO2 06/26/19 07:55 103 06/26/19 05:18 100.3 06/26/19 04:00 100.6 136 24 148/77 (100) 90 06/26/19 00:00 99.9 125 20 124/81 (95) 92 06/25/19 21:00 Nasal Cannula 3.0 06/25/19 20:22 94 Non-Rebreather 3.0 32 06/25/19 20:00 99.7 122 24 149/69 (95) 94 06/25/19 16:00 98.7 97 19 142/71 (94) 98 06/25/19 12:00 98.5 96 20 136/85 (102) 97 Intake and Output 06/25/19 06/26/19 19:00 07:00 Intake Total 1257.5 ml Balance 1257.5 ml Intake Oral 240 ml IV Total 1017.5 ml Bladder Scan Volume Amount <10 ml # Voids 2 # Bowel Movements 2 1 Laboratory Tests 06/25/19 15:45: White Blood Count 26.2*H, Red Blood Count 3.25L, Hemoglobin 10.2L, Hematocrit 31.1L, Mean Corpuscular Volume 96, Mean Corpuscular Hemoglobin 31.3H, Mean Corpuscular Hemoglobin Concent 32.7, Red Cell Distribution Width 13.5, Platelet Count 375, Mean Platelet Volume 7.1, Neutrophils (%) (Auto) , Lymphocytes (%) ( Auto) , Monocytes (%) (Auto) , Eosinophils (%) (Auto) , Basophils (%) (Auto) , Differential Total Cells Counted 100, Neutrophils % (Manual) 87H, Lymphocytes % (Manual) 4L, Monocytes % (Manual) 3, Eosinophils % (Manual) 0, Basophils % ( Manual) 1, Band Neutrophils 5, Platelet Estimate Adequate, Platelet Morphology Normal, Red Blood Cell Morphology Normal, Sodium Level 141, Potassium Level 3.8 , Chloride Level 103, Carbon Dioxide Level 27, Anion Gap 11, Blood Urea Nitrogen 31H, Creatinine 1.7H, Estimat Glomerular Filtration Rate 29.1, Glucose Level 177H, Calcium Level 7.7L, Total Bilirubin 0.5, Aspartate Amino Transf (AST /SGOT) 69H, Alanine Aminotransferase (ALT/SGPT) 110H, Alkaline Phosphatase 157H , Total Protein 5.1L, Albumin 1.7L, Globulin 3.4, Albumin/Globulin Ratio 0.5L 06/25/19 16:45: Urine Color Pale yellow, Urine Appearance Cloudy, Urine pH 5, Urine Specific [place] 1.010, Urine Protein 2+H, Urine Glucose (UA) Negative, Urine Ketones Negative, Urine Blood 3+H, Urine Nitrite Negative, Urine Bilirubin Negative, Urine Urobilinogen Normal, Urine Leukocyte Esterase Negative, Urine RBC 10-15H, Urine WBC 2-4, Urine Squamous Epithelial Cells ManyH, Urine Bacteria ModerateH 06/26/19 04:05: White Blood Count 25.8*H, Red Blood Count 3.37L, Hemoglobin 10.7L, Hematocrit 32.8L, Mean Corpuscular Volume 97, Mean Corpuscular Hemoglobin 31.9H, Mean Corpuscular Hemoglobin Concent 32.7, Red Cell Distribution Width 13.4, Platelet Count 372, Mean Platelet Volume 7.4, Neutrophils (%) (Auto) , Lymphocytes (%) ( Auto) , Monocytes (%) (Auto) , Eosinophils (%) (Auto) , Basophils (%) (Auto) , Differential Total Cells Counted 100, Neutrophils % (Manual) 96H, Lymphocytes % (Manual) 1L, Monocytes % (Manual) 3, Eosinophils % (Manual) 0, Basophils % ( Manual) 0, Band Neutrophils 0, Platelet Estimate Adequate, Platelet Morphology Normal, Sodium Level 139, Potassium Level 3.8, Chloride Level 101, Carbon Dioxide Level 28, Anion Gap 10, Blood Urea Nitrogen 26H, Creatinine 1.7H, Estimat Glomerular Filtration Rate 29.1, Glucose Level 108H, Calcium Level 7.9L , Total Bilirubin 0.6, Aspartate Amino Transf (AST/SGOT) 54H, Alanine Aminotransferase (ALT/SGPT) 92H, Alkaline Phosphatase 141H, Total Protein 6.1L, Albumin 1.6L, Globulin 4.5, Albumin/Globulin Ratio 0.4L, Anisocytosis 1+, Total Creatine Kinase 38 06/26/19 05:00: Arterial Blood pH 7.254L, Arterial Blood Partial Pressure CO2 19.6*L, Arterial Blood Partial Pressure O2 52.5L, Arterial Blood HCO3 8.5*L, Arterial Blood Oxygen Saturation 88.0*L, Arterial Blood Base Excess -17.2*L, Isiah Test Positive 06/26/19 06:30: Lactic Acid Level 1.10, Ferritin 894H, C-Reactive Protein, Quantitative 22.5H Height (Feet): 5 Height (Inches): 6.00 Weight (Pounds): 193 General Appearance: lethargic, severe distress EENT: normal ENT inspection Cardiovascular: regular rhythm Respiratory/Chest: accessory muscle use, rhonchi - bilaterally Abdomen: soft Edema: no edema noted Arm (L), no edema noted Arm (R), no edema noted Leg (L), no edema noted Leg (R), no edema noted Pedal (L), no edema noted Pedal (R), no edema noted Generalized Dmitri Jj MD June 26, 2019 11:07
--- NOTE | 2019-06-26 12:26 | NUR ---
NURSE NOTES: Called Dr. Parrish's office and left message for F/U with ABG results.
--- NOTE | 2019-06-26 12:52 | NUR ---
NURSE NOTES: Talked with Dr. Parrish and informed ABG results. No new order at this time. Dr. Little will come to see patient today.
--- NOTE | 2019-06-26 14:56 | NUR ---
BITUMASTIC APPLIER DISCHARGE NOTE Discontinue BITUMASTIC APPLIER intervention s/p acute respiratory distress with transfer to [facility]. BITUMASTIC APPLIER plans to d/c inpatient services and Pt will require new orders (and re-evaluation) s/p change in medical status. Please re-refer Pt to BITUMASTIC APPLIER when Pt is medically stable and appropriate.
[2019-06-26] MEDS ORDERED: Vancomycin 1 GM in D5W 275 ML IVPB SCH (16:00)
--- NOTE | 2019-06-26 16:22 | NUR ---
NURSE NOTES: Seen by Dr. Little and assessed patient. Okay to transfer to [facility].
[2019-06-26] MEDS ORDERED: Vancomycin 1 GM in D5W 275 ML IVPB ONE (16:30)
--- NOTE | 2019-06-26 17:05 | Pre-Procedure Note/Attestation ---
Pre-Procedure Note/Attestation Complete Prior to Procedure Planned Procedure: not applicable Procedure Narrative: picc line Indications for Procedure Pre-Operative Diagnosis: needs iv access Attestation consent obtained by primary team. this was confirmed prior to the procedure. Damir Galindo M.D. June 26, 2019 17:05
--- NOTE | 2019-06-26 17:11 | Diagnostic Imaging Report ---
Indications: Needs long-term IV access Technique: Procedure performed at bedside. Procedural timeout performed. Ultrasound confirms patent compressible left basilic vein. Total sterile technique, including sterile probe cover and sterile gel, sterile gloves, hand hygiene, hat, mask,, sterile gown, large sterile drape, and preparation with 2% chlorhexidine utilized. Local anesthesia with 1% lidocaine. Under real-time ultrasound guidance, puncture left basilic vein using 21-gauge needle, passage 0.018 guidewire, exchange for 5 Guamanian peel-away sheath. 4 Guamanian dual-lumen power PICC cut to 40 cm. It was inserted through the peel-away sheath. Peel-away sheath and guidewire removed. Catheter fixed to the skin. Both catheter ports aspirated and flushed. Patient tolerated procedure well, without immediate complication. Followup chest x-ray obtained, documents catheter tip position at the SVC. There is no evidence of pneumothorax. Interstitial and bilateral airspace disease is again noted, increased compared to the prior exam. Impression: Successful bedside placement of 4 Guamanian double-lumen PICC under sonographic guidance, as described above. Catheter cleared for immediate use. Worsening of interstitial and bilateral airspace disease concerning for multifocal pneumonia and/or edema. Clinical correlation and follow-up recommended.
--- NOTE | 2019-06-26 18:00 | NUR ---
NURSE NOTES: Patient had been ST 160-180 since PICC insertion. Patient noted facial grimace. Provided quiet environment, tried distraction and talking.
[2019-06-26] MEDS ORDERED: Morphine Sulfate 2mg/ml Inj(IV/IM USE ONLY) IVP PRN (18:30)
--- NOTE | 2019-06-26 18:30 | NUR ---
NURSE NOTES: Patient is still 170s ST. Dr[address] Little ordered morphine 1mg IV Q4 PRN.
--- NOTE | 2019-06-26 19:48 | NUR ---
HAND-OFF: Report given to DARLINE Mayfield. Endorsed plan of care.
--- NOTE | 2019-06-26 19:55 | NUR ---
NURSE NOTES: LE: PATIENT AWOKE, RESPONSE TO NAME, ON BIPAP 12/5, FIO2 100%, O2 SATURATION 89% NOTED, HR 120'S/MIN ST, NPO STATUS, ABDOMEN SOFT, NO BM STATUS, PICC LINE TO LEFT UPPER ARM AND PPL TO LEFT AC, RIGHT HAND AND RIGHT FA INTACT AND PATENT, ONGOING D5W W/ 30MEQ AT 30ML/HR VIA PICC LINE, LOWER BED POSITION, ON BED ALARM AND LOCKED, PLACED CALL LIGHT WITHIN REACH, WILL CONTINUE TO MONITOR.
[2019-06-26] MEDS ORDERED: Dyna-Hex 2% Top Sol 2oz TOPIC SCH ×2 (20:00)
--- NOTE | 2019-06-26 22:00 | NUR ---
NURSE NOTES: PATIENT ASLEEP STATUS.
[2019-06-27] VITALS: BP 98/65
--- NOTE | 2019-06-27 00:10 | NUR ---
NURSE NOTES: PATIENT AWOKE, DENIED PAIN AT THIS TIME.
--- NOTE | 2019-06-27 02:35 | NUR ---
NURSE NOTES: DESATURATION 78%-80% NOTED THAT CALLED RT.
--- NOTE | 2019-06-27 04:10 | NUR ---
NURSE NOTES: LE: MORNING CARE WAS DONE, HR 90'S/MIN SR W/ PVC'S NOTED, DESATURATION 82% NOTED THAT CALLED RT.
--- NOTE | 2019-06-27 04:33 | NUR ---
Late entry for 0433. PRONOUNCEMENT: No Code. Called to pronounce patient. Absence of spontaneous respirations, no cardiac or breath sounds on auscultation. Pupils fixed and dilated. No carotid pulse or chest movement. Patient at 0433. Dr. Jj notified @ 0505 per Chaparro Bates RN Family ( Son/Raul Leon)was notified @ 0515 per DARLINE Bates.
--- NOTE | 2019-06-27 05:15 | NUR ---
NURSE NOTES: SADE: CALLED AND INFORMED PT'S SON WHO IS JUANSILVINO RAE, HE LIVES IN [place].
--- NOTE | 2019-06-27 05:20 | NUR ---
PRONOUNCEMENT:by RN BICYCLE FITTER (Perfecto LATHAM) No Code. Called to pronounce patient. Absence of spontaneous respirations, no cardiac or breath sounds on auscultation. Pupils fixed and dilated. No carotid pulse or chest movement. Patient at 0433AM. DR JETT notified PER telephone. Family was notified at 0515AM PER telephone.
--- NOTE | 2019-06-27 06:07 | NUR ---
NURSE NOTES: LE; CALLED AND LEFT MESSAGE TO DR. JETT.
[2019-06-27] MEDS ORDERED: NS 275ml ONE (06:16)
[2019-06-27] MEDS ORDERED: Tubing IV Secondary IV ONE (06:16)
[2019-06-27] MEDS ORDERED: Cefepime HCl 2 GM in D5W 55 ML IV SCH (09:00)
--- NOTE | 2019-06-29 16:01 | Discharge Summary ---
Discharge Summary Discharge Summary _ SUMMARY DATE OF ADMISSION: 06/14/2019 DATE OF EXPIRATION: 06/27/2019 REASON FOR ADMISSION: 78 years old female, resident of assisted living, with past medical history of hypertension, presented complaining OF generalized weakness and rash in her legs. No fever or chills. No cough. Upon evaluation vital signs were stable. Laboratory work-up revealed no leukocytosis , stable hemoglobin , hematocrit and platelet count. Lymphopenia noted. Potassium 3.2. BUN 33, creatinine 1.1. Glucose 88. Lactic acid 2.7. AST 191, ALT 95. Troponin negative, pro RANGE RIDER 278. Chest x-ray demonstrated no acute findings. Urinalysis revealed pyuria and moderate bacteria. Clinical examination revealed cellulitis bilateral lower extremity. In emergency department patient received empiric antibiotic and IV fluids. Given concern for COVID 19, patient was swabbed and admitted to [facility] in isolation room. CONSULTANTS: ID specialist Dr. Mariano surgery Dr. Avitia [facility] COURSE: Patient admitted to isolation room. Patient started on empiric antibiotics as per ID specialist recommendation. Blood culture revealed Staph hominis and bacteroids. SARS-CoV-2 by PCR on 06/12 was detected. Patient was continued to be in isolation. Urine culture revealed Proteus mirabilis. Repeated blood culture on 06/15 were negative. Blood culture on again revealed Staph epidermidis. Repeated urine culture revealed [place]. Supplemental oxygen provided and titrated to keep pulse oximetry above 92%. Pulmonary toilet provided. Patient was followed-up with chest x-ray. CRP remains elevated along with ferritin. Patient initially undergone treatment i with Plaquenil. Patient developed acute renal failure with creatinine reaching 1.8. Patient was hydrated. Nephrotoxins were avoided. Electrolytes corrected as needed. Patient noted to have worsening leukocytosis and acute renal failure. Noted diarrhea. Stool for C. difficile was negative. Patient noted to have elevated LFTs initially. LFT trending down. Abdominal ultrasound demonstrated increased liver echogenicity consistent with hepatocellular disease , most likely fatty liver. No gallstones or dilated bile ducts. Diet texture provided as per speech therapist recommendation with strict aspiration precaution and one-to-one feeding after swallow evaluation was completed. Protein supplements provided as per registered nurse practitioner recommendation. Wound care provided as per surgeon recommendation. Last chest x-ray revealed increased bilateral infiltrates. Patient showed worsening leukocytosis and intermittent fevers. Antibiotic further optimized as per ID recommendation. Patient developed respiratory failure. Patient required 100% nonrebreathing mask. ABG on 100% nonrebreathing mask revealed evidence of acute metabolic acidosis with pH 7.25, PCO2 19 ,bicarb 8.5. Patient condition and further goals of care were discussed with the patient's family. Patient was made DNR as per family wishes on 06/25. Patient subsequently was pronounced at 4:33 AM 06/26. Cause of : cardiopulmonary arrest likely due to COVID-19 infection FINAL DIAGNOSES: Confirmed COVID-19 virus infection Acute hypoxemic respiratory failure Metabolic acidosis Pneumonia due to COVID-19 infection Bacteremia Proteus UTI Bilateral lower extremity cellulitis Diarrhea/ stool C dif negative Hypertension Dysphagia Acute kidney injury I have been assigned to dictate discharge summary for this account. I was not involved in the patient's management. Majo Luevano NP June 29, 2019 16:01
== END 2019-06-27 06:17 | disposition expired | DRG 177 ==
LOC: EDBD 11:09 → EMR 11:30 → EDBEDREQ 13:12 → 4E 06-14 10:20 → 2W 06-26 06:56
PROC: 02HV33Z Insertion of Infusion Device into Superior Vena Cava, Percutaneous Approach (ICD-10-PCS; principal; 2019-06-26)
PROC: 5A09357 Assistance with Respiratory Ventilation, Less than 24 Consecutive Hours, Continuous Positive Airway Pressure (ICD-10-PCS; principal; 2019-06-26)
DX: U07.1 COVID-19 (principal); J96.01 Acute respiratory failure with hypoxia; J12.89 Other viral pneumonia; L03.116 Cellulitis of left lower limb; N39.0 Urinary tract infection, site not specified; L03.115 Cellulitis of right lower limb; N17.9 Acute kidney failure, unspecified; R78.81 Bacteremia; E66.9 Obesity, unspecified; Z68.27 Body mass index [BMI] 27.0-27.9, adult; E87.6 Hypokalemia; I10 Essential (primary) hypertension; B96.4 Proteus (mirabilis) (morganii) as the cause of diseases classified elsewhere; R19.7 Diarrhea, unspecified; R13.10 Dysphagia, unspecified; F99 Mental disorder, not otherwise specified; R10.9 Unspecified abdominal pain; Z66 Do not resuscitate
CPT/HCPCS: 36415; 36569; 36600; 71045; 76700; 76937; 80048; 80053; 80202; 81003; 82550; 82728; 82803; 83540; 83550; 83605; 83735; 83880; 84443; 84484; 85007; 85025; 85651; 86140; 87040; 87081; 87086; 87181; 87324; 87635; 92610; 93005; 96361; 96365; 99285; J2405; J7030; J8499